=== PATIENT | male | born 1925 | race African-American/Black ===

== ENCOUNTER 2016-07-12 18:43 | Inpatient (IN) | payer MEDICARE ==
[~2016-07-12] VITALS: Ht 170.2 cm; Wt 59.4 kg
[~2016-07-12 18:43] MED LIST: DONE10TA7 PO; LOSA25TA4 PO; TAMS0.4C2 PO; TRAV5DRO EACHEYE; [UNRECOGNIZED DRUG - OTHER] EACHEYE
--- NOTE | 2016-07-12 19:07 | PHYS DOC ---
Past Medical History Past Medical History: Hypertension, Other Additional Past Medical Histor: cataract, BPH Past Surgical History: Other Additional Past Surgical Histo: cataract removal , prostates surgery Alcohol Use: None Drug Use: None Adult General Chief Complaint Chief Complaint: ALTERED MENTAL STATUS HPI HPI Patient is a 89 year old male brought in by children for evaluation of altered mental status diarrhea decreased activity and inability to ambulate. Son is very vague on the different aspects of his history. Patient is alert and oriented 1 and I asked that this is baseline for him and he said yes. I asked him how he is more confused and son was unable to provide much detail. He said the thing that is different is that patient defecated on himself but he is having diarrhea which is new. Son said that he is not getting up and around very well and I asked if he usually does and he said no. They say that he has lost a profound amount of weight but are unsure how much weight he has lost pages feel that he is much more thin than usual. Patient denies any area of pain and he seems upset that he is here as he denies any specific complaints. Patient lives at home by himself but son says he has a supervisor [employer] come and help him out every day. Review of Systems Review of Systems unable to obtain due to AMS Current Medications Current Medications Current Medications Medications (Trade) Dose Ordered Sig/Radha Start Time Stop Time Status Last Admin Dose Admin Morphine Sulfate 4 mg PRN Q2HR PRN 07/12/16 20:30 07/13/16 20:29 Ondansetron HCl (Zofran) 4 mg PRN Q8HRS PRN 07/12/16 20:30 07/13/16 20:29 Sodium Chloride (Iv Sodium Chloride 0.9% 1000ml Bag) 1,000 ml @ 1,000 mls/hr 1X ONCE 07/12/16 19:30 07/12/16 20:29 DC 07/12/16 19:45 1,000 MLS/HR Allergies Allergies Allergies Coded Allergies Type Severity Reaction Last Updated Verified No Known Drug Allergies 07/18/13 No Physical Exam Physical Exam Constitutional: Well developed, well nourished, no acute distress, non-toxic appearance. [] HENT: Normocephalic, atraumatic, bilateral external ears normal, oropharynx moist, no oral exudates, nose normal. [] Eyes: PERRLA, EOMI, conjunctiva normal, no discharge. [] Neck: Normal range of motion, no tenderness, supple, no stridor. [] Cardiovascular:Heart rate regular rhythm, no murmur [] Lungs & Thorax: Bilateral breath sounds clear to auscultation [] Abdomen: Bowel sounds normal, soft, no tenderness, no masses, no pulsatile masses. [] Skin: Warm, dry, no erythema, no rash. [] Back: No tenderness, no CVA tenderness. [] Extremities: No tenderness, no cyanosis, no clubbing, ROM intact, no edema. [] Neurologic: Alert and oriented X 3, normal motor function, normal sensory function, no focal deficits noted. [] Current Patient Data Vital Signs Vital Signs Date Time Temp Pulse Resp B/P Pulse Ox O2 Delivery O2 Flow Rate FiO2 07/12/16 19:11 98.8 73 14 139/62 99 Room Air 98.8 Lab Values Laboratory Tests Test 07/12/16 19:20 White Blood Count 4.2x10^3/uL (4.0-11.0) Red Blood Count 3.47x10^6/uL (4.30-5.70) L Hemoglobin 10.8g/dL (13.0-17.5) L Hematocrit 33.0% (39.0-53.0) L Mean Corpuscular Volume 95fL (79-100) Mean Corpuscular Hemoglobin 31pg (25-35) Mean Corpuscular Hemoglobin Concent 33g/dL (31-37) Red Cell Distribution Width 14.8% (11.5-14.5) H Platelet Count 133x10^3/uL (140-400) L Neutrophils (%) (Auto) 80% (31-73) H Lymphocytes (%) (Auto) 8% (24-48) L Monocytes (%) (Auto) 10% (0-9) H Eosinophils (%) (Auto) 1% (0-3) Basophils (%) (Auto) 1% (0-3) Neutrophils # (Auto) 3.4x10^3uL (1.8-7.7) Lymphocytes # (Auto) 0.3x10^3/uL (1.0-4.8) L Monocytes # (Auto) 0.4x10^3/uL (0.0-1.1) Eosinophils # (Auto) 0.0x10^3/uL (0.0-0.7) Basophils # (Auto) 0.0x10^3/uL (0.0-0.2) Sodium Level 136mmol/L (136-145) Potassium Level 3.4mmol/L (3.5-5.1) L Chloride Level 101mmol/L (98-107) Carbon Dioxide Level 25mmol/L (21-32) Anion Gap 10 (6-14) Blood Urea Nitrogen 20mg/dL (8-26) Creatinine 1.4mg/dL (0.7-1.3) H Estimated GFR (Cockcroft-Gault) 57.7 BUN/Creatinine Ratio 14 (6-20) Glucose Level 134mg/dL (70-99) H Calcium Level 8.6mg/dL (8.5-10.1) Total Bilirubin 0.9mg/dL (0.2-1.0) Aspartate Amino Transferase (AST) 21U/L (15-37) Alanine Aminotransferase (ALT) 17U/L (16-63) Alkaline Phosphatase 61U/L (46-116) Troponin I Quantitative < 0.017ng/mL (0.000-0.055) CS-Wlj-G-Type Natriuretic Peptide 482pg/mL (0-449) H Total Protein 7.4g/dL (6.4-8.2) Albumin 3.1g/dL (3.4-5.0) L Albumin/Globulin Ratio 0.7 (1.0-1.7) L Thyroid Stimulating Hormone (TSH) 1.040uIU/mL (0.358-3.74) Laboratory Tests 07/12/16 19:20 Laboratory Tests 07/12/16 19:20 EKG EKG Normal sinus rhythm at 73 bpm with normal axis no deviation no obvious ST elevation or depression with normal T waves. Radiology/Procedures Radiology/Procedures Normal mediastinum and normal heart size and no free air pneumothorax or opacity PROCEDURE CT head without intravenous contrast. HISTORY Altered mental status, confusion. TECHNIQUE Axial images are obtained of the head from the skull base through the vertex without IV contrast Exposure: One or more of the following individualized dose reduction techniques were utilized for this examination: 1. Automated exposure control. 2. Adjustment of the mA and/or kV according to patient size. 3. Use of iterative reconstruction technique. COMPARISON CT head December 29, 2013. FINDINGS The ventricles are appropriate in size, shape, and location for the patient's age.No obvious intracranial mass, mass-effect, midline shift, hemorrhage or obvious acute infarction is identified.Basilar cisterns are patent. 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 Bone windows demonstrate no acute calvarial abnormality.The visualized paranasal sinuses appear clear. IMPRESSION 1. No acute intracranial process. Please note that CT can be relatively insensitive to acute ischemic infarction for up to 24 hours after symptom onset. 2. 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 Electronically signed by: Warren Edmonds MD (Jul 12, 2016 19:45:54) DICTATED and SIGNED BY: WARREN EDMONDS MD DATE: 07/12/161944 Course & Med Decision Making Course & Med Decision Making Patient with nonspecific symptoms so he will get labs and imaging IV fluids and then be reassessed. Patient is altered and he is deathly not safe to go home with his current mental faculty. Patient will be admitted for further observation and treatment. Dragon Disclaimer Dragon Disclaimer This electronic medical record was generated, in whole or in part, using a voice recognition dictation system. Departure Departure Impression: Primary Impression: Encephalopathy acute Additional Impressions: Hypokalemia Diarrhea Disposition: ADMITTED INPATIENT Admitting Physician: Leonardo Hawk Referrals: GLADYS BURK MD (PCP) Problem Qualifiers MARCY GARNER DO Jul 12, 2016 19:07
[2016-07-12] MEDS ORDERED: IV NORMAL SALINE 1000ML BAG 1,000 ML IV ONE (19:30)
[2016-07-12 19:31] LABS: BASO % 1 % (0-3); EOS % 1 % (0-3); HEMOGLOBIN 10.8 g/dL (13.0-17.5); LYMPH # 0.3 x10^3/uL (1.0-4.8); LYMPH % 8 % (24-48); MEAN CORPUSCULAR HEMOGLOBIN 31 pg (25-35); MEAN CORPUSCULAR HGB CONC 33 g/dL (31-37); MEAN CORPUSCULAR VOLUME 95 fL (79-100); MONO % 10 % (0-9); NEUT % 80 % (31-73); PLATELET COUNT 133 x10^3/uL (140-400); RED BLOOD COUNT 3.47 x10^6/uL (4.30-5.70); RED CELL DISTRIBUTION WIDTH 14.8 % (11.5-14.5); WHITE BLOOD COUNT 4.2 x10^3/uL (4.0-11.0)
--- NOTE | 2016-07-12 19:47 | RAD ---
PROCEDURE CT head without intravenous contrast. HISTORY Altered mental status, confusion. TECHNIQUE Axial images are obtained of the head from the skull base through the vertex without IV contrast Exposure: One or more of the following individualized dose reduction techniques were utilized for this examination: 1. Automated exposure control. 2. Adjustment of the mA and/or kV according to patient size. 3. Use of iterative reconstruction technique. COMPARISON CT head December 29, 2013. FINDINGS The ventricles are appropriate in size, shape, and location for the patient's age.No obvious intracranial mass, mass-effect, midline shift, hemorrhage or obvious acute infarction is identified.Basilar cisterns are patent. 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 Bone windows demonstrate no acute calvarial abnormality.The visualized paranasal sinuses appear clear. IMPRESSION 1. No acute intracranial process. Please note that CT can be relatively insensitive to acute ischemic infarction for up to 24 hours after symptom onset. 2. 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 Electronically signed by: Warren Siddiqi MD (Jul 12, 2016 19:45:54)
[2016-07-12 19:49] LABS: CALCIUM 8.6 mg/dL (8.5-10.1); CREATININE 1.4 mg/dL (0.7-1.3); GFR 57.7; POTASSIUM 3.4 mmol/L (3.5-5.1)
[2016-07-12 19:55] LABS: ALBUMIN 3.1 g/dL (3.4-5.0); ALBUMIN/GLOBULIN RATIO 0.7 (1.0-1.7); TOTAL BILIRUBIN 0.9 mg/dL (0.2-1.0); TOTAL PROTEIN 7.4 g/dL (6.4-8.2)
[2016-07-12] MEDS ORDERED: ONDANSETRON PF 4 MG/2 ML VIAL. IV PRN (20:30)
[2016-07-12] MEDS ORDERED: MORPHINE SULFATE 4 MG/ML DISP.SYRIN. IV PRN (20:30)
[2016-07-12] MEDS: POTASSIUM CHLORIDE 30 MEQ in IV NORMAL SALINE 1000ML BAG 1,000 ML IV SCH (20:57)
[2016-07-12 21:45] VITALS: BP 125/58
--- NOTE | 2016-07-13 02:45 | ACF ---
Admission Forms Criteria MENTAL STATUS CHANGE Clinical Indications for Inpatient Care (Place 'X' for any and all applicable criteria): Ongoing inpatient care may be needed for 1 or more of the following(1)(2)(3)(5)( 6): [X ]I. Suspected serious etiology (eg, medical disorder, [employer] TEACHER event) of altered mental status [ ]II. Danger to self or others not manageable at lower level of care [ ]III. Grave disability (eg, inability to perform self care necessary at lower level of care) [ ]IV. Agitation or inappropriate behavior interfering with care for primary condition (eg, attempting to discontinue lines or drains prematurely, unable to cooperate with respiratory care) [ ]V. Delirium [A] [D][E] as described by 1 or more of the following(26): [ ]a) Delirium due to alcohol or sedative [F] withdrawal [ ]b) Delirium of uncertain etiology that has not responded to appropriate empiric treatment [ ]c) Delirium that prevents performance of a life-sustaining function (eg, feeding or hydrating oneself) [ ]. General contraindications and/or Inappropriate clinical situations for Observational Care in patients with Mental Status Change, when ANY ONE of the following is required: [ ]a) Prediction of prolongation of LOS based on ANY ONE of the following may be considered as a contraindication for observational care 2, 3, 4, 5, 6, 7, 8, 9, 10, 11 [ ]i) Age > 65 yrs. [ ]ii) Patient arriving by ambulance [ ]iii) Patient with high acuity [ ]iv) Patient requiring vital sign monitoring [ ]v) Patient on IV medication [ ]b) Systolic blood pressures greater than or equal to 180mmHg 3, 12 [ ]c) Patient with altered mental status including delirium and other alteration of consciousness, (3) [ ]d) Patient whose discharge disposition will be to a long term home or rehabilitation home should not be managed in Emergency Department Observation Unit. CMS rule requires 3 days hospital stay before such placement.3,13 [ ]e) Patient with failure to thrive due to broad array of etiologies 3,16,17 [ ]f) Inability to ambulate 3,14 Extended stay beyond goal length of stay for the primary condition may be needed until ALL of the following are present(3)(5): [ ]a) Underlying medical etiology of mental status change is absent, or has been established and adequately treated [ ]b) Danger to self or others is absent or manageable at lower level of care. [ ]c) Behavior crisis management, including physical or chemical restraints, is not required or available at lower level of car [ ]d) Substance or alcohol withdrawal is absent or manageable at lower level of care. [ ]e) Behavioral symptoms (eg, agitation, somnolence, inappropriate behavior) are absent, or are manageable at lower level of care. The original [facility] content created by [facility] has been revised. The portions of the content which have been revised are identified through the use of italic text or in bold, and [facility] has neither reviewed nor approved the modified material. All other unmodified content is copyright [facility]. Please see references footnoted in the original [facility] edition 2016 Admission Criteria Met?: Yes ALLI FORD July 13, 2016 02:45
[2016-07-13 03:00] VITALS: BP 109/68
[2016-07-13 04:21] LABS: BASO % 0 % (0-3); EOS % 1 % (0-3); HEMATOCRIT 31.2 % (39.0-53.0); HEMOGLOBIN 10.3 g/dL (13.0-17.5); LYMPH # 0.6 x10^3/uL (1.0-4.8); LYMPH % 16 % (24-48); MEAN CORPUSCULAR HEMOGLOBIN 32 pg (25-35); MEAN CORPUSCULAR HGB CONC 33 g/dL (31-37); MEAN CORPUSCULAR VOLUME 96 fL (79-100); MONO % 12 % (0-9); NEUT % 71 % (31-73); PLATELET COUNT 121 x10^3/uL (140-400); RED BLOOD COUNT 3.26 x10^6/uL (4.30-5.70); RED CELL DISTRIBUTION WIDTH 14.3 % (11.5-14.5)
[2016-07-13 05:38] LABS: CALCIUM 8.3 mg/dL (8.5-10.1); CREATININE 1.2 mg/dL (0.7-1.3); GFR 69.1; POTASSIUM 3.2 mmol/L (3.5-5.1)
--- NOTE | 2016-07-13 06:29 | EKG ---
[facility] [address] [place] [address] Test Date: 2016-07-12 Test Time: 19:15:56 Pat Name: VIRAL BROCK Department: Room: [facility] Gender: M Cash Applications Clerk: : [id number] Requested By: MARCY GARNER Order Number: [id number] Reading MD: Ami Marie Measurements Intervals [place] Rate: 73 P: 52 DC: 166 QRS: 32 QRSD: 80 T: 71 QT: 402 QTc: 447 Interpretive Statements SINUS RHYTHM LOW LIMB LEAD VOLTAGE T ABNORMALITY IN HIGH LATERAL LEADS ABNORMAL ECG Electronically Signed On 07-13-2016 21:04:07 CDT by Ami Marie
[2016-07-13 07:00] VITALS: BP 125/60
--- NOTE | 2016-07-13 07:57 | RAD ---
Indication change in mental status. Suspect CVA. Cough study. A single view of the chest was obtained. Comparison is made to an examination 12/29/2013. The heart and pulmonary vessels are normal. The lungs are clear. A significant change compared to the previous exam is not seen. IMPRESSION: No acute or focal process. No significant change
[2016-07-13] MEDS: POTASSIUM CHLORIDE 30 MEQ in IV NORMAL SALINE 1000ML BAG 1,000 ML IV SCH (10:11)
[2016-07-13 11:06] VITALS: BP 121/66
--- NOTE | 2016-07-13 12:11 | PDOC1 ---
History and Physical Current Problem List Problem List Problems Medical Problems: (1) Diarrhea Status: Acute (2) Encephalopathy acute Status: Acute (3) Hypokalemia Status: Acute Current Medications Current Medications Current Medications Medications (Trade) Dose Ordered Sig/Radha Start Time Stop Time Status Last Admin Dose Admin Morphine Sulfate 4 mg 4 mg PRN Q2HR PRN 07/12/16 20:30 07/13/16 20:29 Ondansetron HCl (Zofran) 4 mg PRN Q8HRS PRN 07/12/16 20:30 07/13/16 20:29 Potassium Chloride/Sodium Chloride (Iv Sodium Chloride 0.9% 1000ml Bag) 1,015 ml @ 75 mls/hr [id number] 07/12/16 20:45 07/13/16 10:11 75 MLS/HR Sodium Chloride (Iv Sodium Chloride 0.9% 1000ml Bag) 1,000 ml @ 1,000 mls/hr 1X ONCE 07/12/16 19:30 07/12/16 20:29 DC 07/12/16 19:45 1,000 MLS/HR Allergies Allergies Allergies Coded Allergies Type Severity Reaction Last Updated Verified No Known Drug Allergies 07/18/13 No Physical Exam Physical Exam GEN.: No apparent distress. Alert NOT ORIENTED HEENT: Head is normocephalic, atraumatic NECK: Supple. LUNGS: Clear to auscultation. HEART: RRR, S1, S2 present. Peripheral pulses intact ABDOMEN: Soft, nontender. Positive bowel sounds. EXTREMITIES: Without any cyanosis. NEUROLOGIC: Normal speech, normal tone PSYCHIATRIC: SKIN: No ulcerations Vitals Vitals Vital Signs Date Time Temp Pulse Resp B/P Pulse Ox O2 Delivery O2 Flow Rate FiO2 07/13/16 11:06 98.1 71 18 121/66 96 Room Air 98.1 Labs Labs Laboratory Tests Test 07/12/16 19:20 07/13/16 03:50 White Blood Count 4.2x10^3/uL (4.0-11.0) 4.0x10^3/uL (4.0-11.0) Red Blood Count 3.47x10^6/uL (4.30-5.70) 3.26x10^6/uL (4.30-5.70) Hemoglobin 10.8g/dL (13.0-17.5) 10.3g/dL (13.0-17.5) Hematocrit 33.0% (39.0-53.0) 31.2% (39.0-53.0) Mean Corpuscular Volume 95fL (79-100) 96fL (79-100) Mean Corpuscular Hemoglobin 31pg (25-35) 32pg (25-35) Mean Corpuscular Hemoglobin Concent 33g/dL (31-37) 33g/dL (31-37) Red Cell Distribution Width 14.8% (11.5-14.5) 14.3% (11.5-14.5) Platelet Count 133x10^3/uL (140-400) 121x10^3/uL (140-400) Neutrophils (%) (Auto) 80% (31-73) 71% (31-73) Lymphocytes (%) (Auto) 8% (24-48) 16% (24-48) Monocytes (%) (Auto) 10% (0-9) 12% (0-9) Eosinophils (%) (Auto) 1% (0-3) 1% (0-3) Basophils (%) (Auto) 1% (0-3) 0% (0-3) Neutrophils # (Auto) 3.4x10^3uL (1.8-7.7) 2.8x10^3uL (1.8-7.7) Lymphocytes # (Auto) 0.3x10^3/uL (1.0-4.8) 0.6x10^3/uL (1.0-4.8) Monocytes # (Auto) 0.4x10^3/uL (0.0-1.1) 0.5x10^3/uL (0.0-1.1) Eosinophils # (Auto) 0.0x10^3/uL (0.0-0.7) 0.0x10^3/uL (0.0-0.7) Basophils # (Auto) 0.0x10^3/uL (0.0-0.2) 0.0x10^3/uL (0.0-0.2) Sodium Level 136mmol/L (136-145) 137mmol/L (136-145) Potassium Level 3.4mmol/L (3.5-5.1) 3.2mmol/L (3.5-5.1) Chloride Level 101mmol/L (98-107) 105mmol/L (98-107) Carbon Dioxide Level 25mmol/L (21-32) 24mmol/L (21-32) Anion Gap 10 (6-14) 8 (6-14) Blood Urea Nitrogen 20mg/dL (8-26) 17mg/dL (8-26) Creatinine 1.4mg/dL (0.7-1.3) 1.2mg/dL (0.7-1.3) Estimated GFR (Cockcroft-Gault) 57.7 69.1 BUN/Creatinine Ratio 14 (6-20) Glucose Level 134mg/dL (70-99) 108mg/dL (70-99) Calcium Level 8.6mg/dL (8.5-10.1) 8.3mg/dL (8.5-10.1) Total Bilirubin 0.9mg/dL (0.2-1.0) Aspartate Amino Transf (AST/SGOT) 21U/L (15-37) Alanine Aminotransferase (ALT/SGPT) 17U/L (16-63) Alkaline Phosphatase 61U/L (46-116) Troponin I Quantitative < 0.017ng/mL (0.000-0.055) HA-Yzp-N-Type Natriuretic Peptide 482pg/mL (0-449) Total Protein 7.4g/dL (6.4-8.2) Albumin 3.1g/dL (3.4-5.0) Albumin/Globulin Ratio 0.7 (1.0-1.7) Thyroid Stimulating Hormone (TSH) 1.040uIU/mL (0.358-3.74) Laboratory Tests Test 07/12/16 19:20 07/13/16 03:50 White Blood Count 4.2x10^3/uL (4.0-11.0) 4.0x10^3/uL (4.0-11.0) Red Blood Count 3.47x10^6/uL (4.30-5.70) 3.26x10^6/uL (4.30-5.70) Hemoglobin 10.8g/dL (13.0-17.5) 10.3g/dL (13.0-17.5) Hematocrit 33.0% (39.0-53.0) 31.2% (39.0-53.0) Mean Corpuscular Volume 95fL (79-100) 96fL (79-100) Mean Corpuscular Hemoglobin 31pg (25-35) 32pg (25-35) Mean Corpuscular Hemoglobin Concent 33g/dL (31-37) 33g/dL (31-37) Red Cell Distribution Width 14.8% (11.5-14.5) 14.3% (11.5-14.5) Platelet Count 133x10^3/uL (140-400) 121x10^3/uL (140-400) Neutrophils (%) (Auto) 80% (31-73) 71% (31-73) Lymphocytes (%) (Auto) 8% (24-48) 16% (24-48) Monocytes (%) (Auto) 10% (0-9) 12% (0-9) Eosinophils (%) (Auto) 1% (0-3) 1% (0-3) Basophils (%) (Auto) 1% (0-3) 0% (0-3) Neutrophils # (Auto) 3.4x10^3uL (1.8-7.7) 2.8x10^3uL (1.8-7.7) Lymphocytes # (Auto) 0.3x10^3/uL (1.0-4.8) 0.6x10^3/uL (1.0-4.8) Monocytes # (Auto) 0.4x10^3/uL (0.0-1.1) 0.5x10^3/uL (0.0-1.1) Eosinophils # (Auto) 0.0x10^3/uL (0.0-0.7) 0.0x10^3/uL (0.0-0.7) Basophils # (Auto) 0.0x10^3/uL (0.0-0.2) 0.0x10^3/uL (0.0-0.2) Sodium Level 136mmol/L (136-145) 137mmol/L (136-145) Potassium Level 3.4mmol/L (3.5-5.1) 3.2mmol/L (3.5-5.1) Chloride Level 101mmol/L (98-107) 105mmol/L (98-107) Carbon Dioxide Level 25mmol/L (21-32) 24mmol/L (21-32) Anion Gap 10 (6-14) 8 (6-14) Blood Urea Nitrogen 20mg/dL (8-26) 17mg/dL (8-26) Creatinine 1.4mg/dL (0.7-1.3) 1.2mg/dL (0.7-1.3) Estimated GFR (Cockcroft-Gault) 57.7 69.1 BUN/Creatinine Ratio 14 (6-20) Glucose Level 134mg/dL (70-99) 108mg/dL (70-99) Calcium Level 8.6mg/dL (8.5-10.1) 8.3mg/dL (8.5-10.1) Total Bilirubin 0.9mg/dL (0.2-1.0) Aspartate Amino Transf (AST/SGOT) 21U/L (15-37) Alanine Aminotransferase (ALT/SGPT) 17U/L (16-63) Alkaline Phosphatase 61U/L (46-116) Troponin I Quantitative < 0.017ng/mL (0.000-0.055) CR-Yib-C-Type Natriuretic Peptide 482pg/mL (0-449) Total Protein 7.4g/dL (6.4-8.2) Albumin 3.1g/dL (3.4-5.0) Albumin/Globulin Ratio 0.7 (1.0-1.7) Thyroid Stimulating Hormone (TSH) 1.040uIU/mL (0.358-3.74) VTE Prophylaxis Ordered VTE Prophylaxis Devices: Yes VTE Pharmacological Prophylaxi: Yes MICHAEL YOUSSEF MD July 13, 2016 12:11
[2016-07-13 15:07] VITALS: BP 124/66
[2016-07-13] MEDS ORDERED: ONDANSETRON PF 4 MG/2 ML VIAL. IV PRN (15:15)
[2016-07-13] MEDS ORDERED: hydrALAZINE 20 MG/ML VIAL. IVP PRN (15:15)
[2016-07-13] MEDS ORDERED: ACETAMINOPHEN 325 MG TABLET. PO PRN (15:15)
[2016-07-13] MEDS ORDERED: POTASSIUM CHLORIDE 20 MEQ TABLET.ER. PO ONE (15:15)
[2016-07-13] MEDS ORDERED: ALBUTEROL SULFATE 2.5 MG/3 ML NEBU. NEB PRN (15:15)
[2016-07-13] MEDS ORDERED: HYDROcodone/APAP 5/325MG 1 TAB TABLET PO PRN (15:15)
[2016-07-13] MEDS: TAMSULOSIN 0.4 MG CAP.ER.24H. PO SCH (15:54)
[2016-07-13] MEDS: DORZOLAMIDE 2% OPHTH SOLUTION 10ML BOTTLE. OU SCH (15:54)
[2016-07-13] MEDS: LOSARTAN POTASSIUM 25 MG TABLET. PO SCH (15:55)
[2016-07-13] MEDS: DONEPEZIL HCL 10 MG TABLET. PO SCH (15:55)
[2016-07-13] MEDS: CIPROFLOXACIN 200MG PREMIX 100 ML IV SCH ×2 (17:06→23:06)
[2016-07-13 19:00] VITALS: BP 128/70
--- NOTE | 2016-07-13 19:33 | HP ---
ADMIT DATE: 07/13/2016 CHIEF COMPLAINT: Altered mental status. HISTORY OF PRESENT ILLNESS: An 89-year-old -[place] male patient with prior history of hypertension who reportedly lives by himself at home and most of the history obtained from the ER notes, as the patient is not able to provide any history. As per the patient's son, the patient is having some diarrhea for unknown period of time and lost some weight. He could not able to ambulate and his activities decreased and he says his mental status has changed. However, he could not able to provide full details of his previous baseline status. Upon my examination this morning, the patient is alert, sitting in the chair. He is nodding his head to all the questions, however, he is not able to provide me any details. He is currently on IV hydration and electrolyte replaced. PAST MEDICAL HISTORY: Hypertension, BPH, cataract and prostate surgery. PERSONAL HISTORY: He lives alone and getting some help. Unknown history of smoking or alcohol. FAMILY HISTORY: Unknown due to his dementia ALLERGIES: NKDA. REVIEW OF SYSTEMS: Not able to obtain due to his seniority and mental status issues. PHYSICAL EXAMINATION: Please see my electronic H and P. LABORATORY FINDINGS: WBC is 4.2, hemoglobin is 10.8, MCV is 95, platelets 133. Chemistries: Sodium is 136, potassium 3.4, chloride is 101, BUN is 10, creatinine is 1.4 and BUN and creatinine ratio is 14. First set of troponin is less than 0.017. IMAGING STUDIES: CT of the chest, no acute process seen. Chest x-ray, no acute process seen. ASSESSMENT AND PLAN: 1. Altered mental status. Unknown baseline state. 2. Dehydration. 3. Hypokalemia. 4. Acute kidney injury. 5. Vasomotor nephropathy due to dehydration. 6. Hypertension. PLAN: 1. The patient has been started on IV fluids with normal saline and potassium replacement and he has some temperature spike around 100. I will get blood cultures and urinalysis. 2. Also started with ciprofloxacin and Levaquin for now and change the antibiotics according to his clinical course. 3. Continue supportive care. Acute kidney injury has been improving with IV hydration. 4. welfare eligibility worker has been consulted. 5. Physical therapy and occupation therapy. 6. Fall precautions. 7. Prognosis is guarded. No immediate family available at the time of examination. We will try to contact. MICHAEL YOUSSEF MD DR: STEPHENIE/benny JOB#: [id number] / [id number] MARYAN
[2016-07-13] MEDS: LATANOPROST 0.005% OPHTH SOLUTION 2.5ML BOTTLE. OU SCH (20:56)
[2016-07-13 23:00] VITALS: BP 131/61
[2016-07-14] MEDS: POTASSIUM CHLORIDE 30 MEQ in IV NORMAL SALINE 1000ML BAG 1,000 ML IV SCH ×2 (02:35→18:15)
[2016-07-14 07:00] VITALS: BP 125/67
[2016-07-14 07:55] LABS: BASO % 0 % (0-3); EOS % 6 % (0-3); HEMATOCRIT 31.1 % (39.0-53.0); HEMOGLOBIN 10.2 g/dL (13.0-17.5); LYMPH # 0.7 x10^3/uL (1.0-4.8); LYMPH % 21 % (24-48); MEAN CORPUSCULAR HEMOGLOBIN 31 pg (25-35); MEAN CORPUSCULAR HGB CONC 33 g/dL (31-37); MEAN CORPUSCULAR VOLUME 96 fL (79-100); MONO % 14 % (0-9); NEUT % 60 % (31-73); PLATELET COUNT 115 x10^3/uL (140-400); RED BLOOD COUNT 3.24 x10^6/uL (4.30-5.70); RED CELL DISTRIBUTION WIDTH 14.5 % (11.5-14.5); WHITE BLOOD COUNT 3.6 x10^3/uL (4.0-11.0)
[2016-07-14 08:01] LABS: GFR 85.3; POTASSIUM 3.6 mmol/L (3.5-5.1)
[2016-07-14] MEDS: TAMSULOSIN 0.4 MG CAP.ER.24H. PO SCH (08:34)
[2016-07-14] MEDS: DONEPEZIL HCL 10 MG TABLET. PO SCH (08:35)
[2016-07-14] MEDS: LOSARTAN POTASSIUM 25 MG TABLET. PO SCH (08:35)
[2016-07-14] MEDS: DORZOLAMIDE 2% OPHTH SOLUTION 10ML BOTTLE. OU SCH (08:35)
[2016-07-14] MEDS: CIPROFLOXACIN 200MG PREMIX 100 ML IV SCH ×2 (08:36→20:27)
--- NOTE | 2016-07-14 10:51 | PDOC ---
PROGRESS NOTES Chief Complaint Chief Complaint CC: diarrhea A/P 1. AMS, spoke with family today, he is at baseline, 2. Dehydration due to diarrhea. 3. Hypokalemia. 4. Acute kidney injury. 5. Vasomotor nephropathy due to dehydration. 6. Hypertension. stable. Plan IV hydration as per family he is at baseline continue to have diarrhea hypokalemia resolved. C diff pending History of Present Illness History of Present Illness diarrhea. no fevers Vitals Vitals Vital Signs Date Time Temp Pulse Resp B/P Pulse Ox O2 Delivery O2 Flow Rate FiO2 07/14/16 08:35 70 125/67 07/14/16 07:55 99 Room Air 07/14/16 07:00 98.8 18 98.8 Physical Exam General: Alert Heart: Regular rate, Normal S1 Lungs: Clear Abdomen: Normal bowel sounds Extremities: No clubbing Labs LABS Laboratory Tests Test 07/14/16 07:00 07/14/16 07:10 White Blood Count 3.6x10^3/uL (4.0-11.0) Red Blood Count 3.24x10^6/uL (4.30-5.70) Hemoglobin 10.2g/dL (13.0-17.5) Hematocrit 31.1% (39.0-53.0) Mean Corpuscular Volume 96fL (79-100) Mean Corpuscular Hemoglobin 31pg (25-35) Mean Corpuscular Hemoglobin Concent 33g/dL (31-37) Red Cell Distribution Width 14.5% (11.5-14.5) Platelet Count 115x10^3/uL (140-400) Neutrophils (%) (Auto) 60% (31-73) Lymphocytes (%) (Auto) 21% (24-48) Monocytes (%) (Auto) 14% (0-9) Eosinophils (%) (Auto) 6% (0-3) Basophils (%) (Auto) 0% (0-3) Neutrophils # (Auto) 2.2x10^3uL (1.8-7.7) Lymphocytes # (Auto) 0.7x10^3/uL (1.0-4.8) Monocytes # (Auto) 0.5x10^3/uL (0.0-1.1) Eosinophils # (Auto) 0.2x10^3/uL (0.0-0.7) Basophils # (Auto) 0.0x10^3/uL (0.0-0.2) Sodium Level 134mmol/L (136-145) Potassium Level 3.6mmol/L (3.5-5.1) Chloride Level 105mmol/L (98-107) Carbon Dioxide Level 22mmol/L (21-32) Anion Gap 7 (6-14) Blood Urea Nitrogen 14mg/dL (8-26) Creatinine 1.0mg/dL (0.7-1.3) Estimated GFR (Cockcroft-Gault) 85.3 Glucose Level 92mg/dL (70-99) Calcium Level 8.0mg/dL (8.5-10.1) Assessment and Plan Assessmemt and Plan Problems Medical Problems: (1) Diarrhea Status: Acute (2) Encephalopathy acute Status: Acute (3) Hypokalemia Status: Acute Problems: Comment Review of Relevant I have reviewed the following items edith (where applicable) has been applied. Labs Laboratory Tests Test 07/12/16 19:20 07/13/16 03:50 07/14/16 07:00 07/14/16 07:10 White Blood Count 4.2x10^3/uL (4.0-11.0) 4.0x10^3/uL (4.0-11.0) 3.6x10^3/uL (4.0-11.0) Red Blood Count 3.47x10^6/uL (4.30-5.70) 3.26x10^6/uL (4.30-5.70) 3.24x10^6/uL (4.30-5.70) Hemoglobin 10.8g/dL (13.0-17.5) 10.3g/dL (13.0-17.5) 10.2g/dL (13.0-17.5) Hematocrit 33.0% (39.0-53.0) 31.2% (39.0-53.0) 31.1% (39.0-53.0) Mean Corpuscular Volume 95fL (79-100) 96fL (79-100) 96fL (79-100) Mean Corpuscular Hemoglobin 31pg (25-35) 32pg (25-35) 31pg (25-35) Mean Corpuscular Hemoglobin Concent 33g/dL (31-37) 33g/dL (31-37) 33g/dL (31-37) Red Cell Distribution Width 14.8% (11.5-14.5) 14.3% (11.5-14.5) 14.5% (11.5-14.5) Platelet Count 133x10^3/uL (140-400) 121x10^3/uL (140-400) 115x10^3/uL (140-400) Neutrophils (%) (Auto) 80% (31-73) 71% (31-73) 60% (31-73) Lymphocytes (%) (Auto) 8% (24-48) 16% (24-48) 21% (24-48) Monocytes (%) (Auto) 10% (0-9) 12% (0-9) 14% (0-9) Eosinophils (%) (Auto) 1% (0-3) 1% (0-3) 6% (0-3) Basophils (%) (Auto) 1% (0-3) 0% (0-3) 0% (0-3) Neutrophils # (Auto) 3.4x10^3uL (1.8-7.7) 2.8x10^3uL (1.8-7.7) 2.2x10^3uL (1.8-7.7) Lymphocytes # (Auto) 0.3x10^3/uL (1.0-4.8) 0.6x10^3/uL (1.0-4.8) 0.7x10^3/uL (1.0-4.8) Monocytes # (Auto) 0.4x10^3/uL (0.0-1.1) 0.5x10^3/uL (0.0-1.1) 0.5x10^3/uL (0.0-1.1) Eosinophils # (Auto) 0.0x10^3/uL (0.0-0.7) 0.0x10^3/uL (0.0-0.7) 0.2x10^3/uL (0.0-0.7) Basophils # (Auto) 0.0x10^3/uL (0.0-0.2) 0.0x10^3/uL (0.0-0.2) 0.0x10^3/uL (0.0-0.2) Sodium Level 136mmol/L (136-145) 137mmol/L (136-145) 134mmol/L (136-145) Potassium Level 3.4mmol/L (3.5-5.1) 3.2mmol/L (3.5-5.1) 3.6mmol/L (3.5-5.1) Chloride Level 101mmol/L (98-107) 105mmol/L (98-107) 105mmol/L (98-107) Carbon Dioxide Level 25mmol/L (21-32) 24mmol/L (21-32) 22mmol/L (21-32) Anion Gap 10 (6-14) 8 (6-14) 7 (6-14) Blood Urea Nitrogen 20mg/dL (8-26) 17mg/dL (8-26) 14mg/dL (8-26) Creatinine 1.4mg/dL (0.7-1.3) 1.2mg/dL (0.7-1.3) 1.0mg/dL (0.7-1.3) Estimated GFR (Cockcroft-Gault) 57.7 69.1 85.3 BUN/Creatinine Ratio 14 (6-20) Glucose Level 134mg/dL (70-99) 108mg/dL (70-99) 92mg/dL (70-99) Calcium Level 8.6mg/dL (8.5-10.1) 8.3mg/dL (8.5-10.1) 8.0mg/dL (8.5-10.1) Total Bilirubin 0.9mg/dL (0.2-1.0) Aspartate Amino Transf (AST/SGOT) 21U/L (15-37) Alanine Aminotransferase (ALT/SGPT) 17U/L (16-63) Alkaline Phosphatase 61U/L (46-116) Troponin I Quantitative < 0.017ng/mL (0.000-0.055) GS-Npc-H-Type Natriuretic Peptide 482pg/mL (0-449) Total Protein 7.4g/dL (6.4-8.2) Albumin 3.1g/dL (3.4-5.0) Albumin/Globulin Ratio 0.7 (1.0-1.7) Thyroid Stimulating Hormone (TSH) 1.040uIU/mL (0.358-3.74) Laboratory Tests Test 07/14/16 07:00 07/14/16 07:10 White Blood Count 3.6x10^3/uL (4.0-11.0) Red Blood Count 3.24x10^6/uL (4.30-5.70) Hemoglobin 10.2g/dL (13.0-17.5) Hematocrit 31.1% (39.0-53.0) Mean Corpuscular Volume 96fL (79-100) Mean Corpuscular Hemoglobin 31pg (25-35) Mean Corpuscular Hemoglobin Concent 33g/dL (31-37) Red Cell Distribution Width 14.5% (11.5-14.5) Platelet Count 115x10^3/uL (140-400) Neutrophils (%) (Auto) 60% (31-73) Lymphocytes (%) (Auto) 21% (24-48) Monocytes (%) (Auto) 14% (0-9) Eosinophils (%) (Auto) 6% (0-3) Basophils (%) (Auto) 0% (0-3) Neutrophils # (Auto) 2.2x10^3uL (1.8-7.7) Lymphocytes # (Auto) 0.7x10^3/uL (1.0-4.8) Monocytes # (Auto) 0.5x10^3/uL (0.0-1.1) Eosinophils # (Auto) 0.2x10^3/uL (0.0-0.7) Basophils # (Auto) 0.0x10^3/uL (0.0-0.2) Sodium Level 134mmol/L (136-145) Potassium Level 3.6mmol/L (3.5-5.1) Chloride Level 105mmol/L (98-107) Carbon Dioxide Level 22mmol/L (21-32) Anion Gap 7 (6-14) Blood Urea Nitrogen 14mg/dL (8-26) Creatinine 1.0mg/dL (0.7-1.3) Estimated GFR (Cockcroft-Gault) 85.3 Glucose Level 92mg/dL (70-99) Calcium Level 8.0mg/dL (8.5-10.1) Medications Current Medications Sodium Chloride (Iv Sodium Chloride 0.9% 1000ml Bag) 1,000 ml @ 1,000 mls/hr 1X ONCE IV Last administered on 07/12/16 19:45; Start 07/12/16 at 19:30; Stop 07/12/16 at 20:29; Status DC Ondansetron HCl (Zofran) 4 mg PRN Q8HRS PRN IV NAUSEA/VOMITING; Start 07/12/16 at 20:30; Stop 07/13/16 at 20:29; Status DC Morphine Sulfate 4 mg 4 mg PRN Q2HR PRN IV PAIN; Start 07/12/16 at 20:30; Stop 07/13/16 at 20:29; Status DC Potassium Chloride/Sodium Chloride (Iv Sodium Chloride 0.9% 1000ml Bag) 1,015 ml @ 75 mls/hr [id number] IV Last administered on 07/14/16 02:35; Start 07/12/16 at 20:45 Donepezil HCl (Aricept) 10 mg DAILY PO Last administered on 07/14/16 08:35; Start 07/13/16 at 16:00 Losartan Potassium (Cozaar) 12.5 mg DAILY PO Last administered on 07/14/16 08: 35; Start 07/13/16 at 16:00 Tamsulosin HCl (Flomax) 0.4 mg DAILY PO Last administered on 07/14/16 08:34; Start 07/13/16 at 16:00 Latanoprost (Xalatan) 1 drop QHS OU Last administered on 07/13/16 20:56; Start 07/13/16 at 21:00 Dorzolamide HCl (Trusopt) 2 drop DAILY OU Last administered on 07/14/16 08:35; Start 07/13/16 at 16:00 Potassium Chloride (Klor-Con) 40 meq 1X ONCE PO ; Start 07/13/16 at 15:15; Stop 07/13/16 at 15:15; Status DC Acetaminophen (Tylenol) 325 mg PRN Q6HRS PRN PO MILD PAIN / TEMP; Start at 15:15 Acetaminophen/ Hydrocodone Bitart (Lortab 5/325) 1 tab PRN Q6HRS PRN PO MODERATE TO SEVERE PAIN; Start 07/13/16 at 15:15 Hydralazine HCl (Apresoline) 10 mg PRN Q4HRS PRN IVP ELEVATED BP, SEE COMMENTS ; Start 07/13/16 at 15:15 Ondansetron HCl (Zofran) 4 mg PRN Q8HRS PRN IV NAUSEA/VOMITING; Start 07/13/16 at 15:15 Albuterol Sulfate 2.5 mg 2.5 mg PRN Q4HRS PRN NEB SHORTNESS OF BREATH; Start at 15:15 Ciprofloxacin Lactate 100 ml @ 100 mls/hr Q12HR IV Last administered on 08:36; Start 07/13/16 at 15:30 Metronidazole (FLAGYL 500Mmg PREMIX) 100 ml @ 100 mls/hr Q8HRS IV Last administered on 07/14/16 05:31; Start 07/13/16 at 15:30 Active Scripts Active Reported [dozolamide ] 2 Drop EACHEYE DAILY Travatan Z (Travoprost) 5 Ml Drops 1 Drop EACHEYE QHS Tamsulosin Hcl 0.4 Mg Cap.er.24h 1 Cap PO DAILY Donepezil Hcl 10 Mg Tablet 1 Tab PO DAILY Losartan Potassium 25 Mg Tablet 12.5 Mg PO DAILY Vitals/I & O Vital Sign - Last 24 Hours 07/13/16 07/13/16 07/13/16 07/13/16 11:06 15:07 15:55 19:00 Temp 98.1 98.2 99.5 98.1 98.2 99.5 Pulse 71 69 69 67 Resp 18 18 18 B/P 121/66 124/66 124/66 128/70 Pulse Ox 96 96 99 O2 Delivery Room Air Room Air 07/13/16 07/14/16 07/14/16 07/14/16 23:00 03:00 07:00 07:55 Temp 99.0 98.9 98.8 99.0 98.9 98.8 Pulse 94 70 Resp 18 18 B/P 131/61 125/67 Pulse Ox 98 98 99 O2 Delivery Room Air Room Air 07/14/16 08:35 Pulse 70 B/P 125/67 Intake and Output 07/13/16 07/13/16 07/14/16 15:00 23:00 07:00 Intake Total 1000 ml 150 ml Output Total 2 ml 1 ml Balance 998 ml -1 ml 150 ml MICHAEL YOUSSEF MD July 14, 2016 10:51
[2016-07-14 10:55] VITALS: BP 123/72
[2016-07-14 15:03] VITALS: BP 121/65
[2016-07-14 19:00] VITALS: BP 155/74
[2016-07-14] MEDS: LATANOPROST 0.005% OPHTH SOLUTION 2.5ML BOTTLE. OU SCH (20:40)
[2016-07-14 23:20] VITALS: BP 128/60
[2016-07-15] MEDS: CIPROFLOXACIN HCL 250 MG TABLET. PO SCH ×2 (02:30→21:00)
[2016-07-15] MEDS: metroNIDAZOLE 500 MG TABLET PO SCH ×3 (02:30→22:00)
[2016-07-15 05:05] LABS: BARBITURATES NEG (NEG); BENZODIAZEPINES NEG (NEG); CANNABINOIDS NEG (NEG); COCAINE NEG (NEG); METHADONE NEG (NEG); OPIATES POS (NEG); PHENCYCLIDINE NEG (NEG)
[2016-07-15 07:00] VITALS: BP 140/83
[2016-07-15 07:17] LABS: BASO % 1 % (0-3); EOS % 9 % (0-3); HEMATOCRIT 28.4 % (39.0-53.0); HEMOGLOBIN 9.3 g/dL (13.0-17.5); LYMPH % 27 % (24-48); MEAN CORPUSCULAR HEMOGLOBIN 31 pg (25-35); MEAN CORPUSCULAR HGB CONC 33 g/dL (31-37); MEAN CORPUSCULAR VOLUME 96 fL (79-100); MONO % 13 % (0-9); NEUT % 51 % (31-73); PLATELET COUNT 114 x10^3/uL (140-400); RED BLOOD COUNT 2.98 x10^6/uL (4.30-5.70); RED CELL DISTRIBUTION WIDTH 14.3 % (11.5-14.5); WHITE BLOOD COUNT 3.8 x10^3/uL (4.0-11.0)
[2016-07-15 07:26] LABS: CALCIUM 7.9 mg/dL (8.5-10.1); CREATININE 1.1 mg/dL (0.7-1.3); GFR 76.4; POTASSIUM 3.4 mmol/L (3.5-5.1)
[2016-07-15] MEDS: DORZOLAMIDE 2% OPHTH SOLUTION 10ML BOTTLE. OU SCH (08:16)
[2016-07-15] MEDS: DONEPEZIL HCL 10 MG TABLET. PO SCH (08:16)
[2016-07-15] MEDS: TAMSULOSIN 0.4 MG CAP.ER.24H. PO SCH (08:16)
[2016-07-15] MEDS: CIPROFLOXACIN 200MG PREMIX 100 ML IV SCH (08:16)
[2016-07-15] MEDS: POTASSIUM CHLORIDE 30 MEQ in IV NORMAL SALINE 1000ML BAG 1,000 ML IV SCH ×2 (08:16→17:58)
[2016-07-15] MEDS: LOSARTAN POTASSIUM 25 MG TABLET. PO SCH (08:17)
[2016-07-15] MEDS ORDERED: ONDANSETRON PF 4 MG/2 ML VIAL. IV PRN (08:44)
[2016-07-15 09:30] LABS: BILIRUBIN,URINE NEGATIVE (NEG); GLUCOSE,URINE NEGATIVE (NEG); NITRITE,URINE NEGATIVE (NEG); PH,URINE 5.5; PROTEIN,URINE NEGATIVE (NEG-TRACE); UROBILINOGEN,URINE 0.2 mg/dL (0.2 mg/dL)
[2016-07-15] MEDS ORDERED: POTASSIUM CHLORIDE 20 MEQ TABLET.ER. PO ONE (09:30)
[2016-07-15 10:33] LABS: BACTERIA,URINE 0 /HPF (0-FEW); SQUAMOUS EPITHELIAL CELL,UR FEW /LPF
[2016-07-15 11:00] VITALS: BP 132/71
--- NOTE | 2016-07-15 13:36 | PDOC ---
PROGRESS NOTES Chief Complaint Chief Complaint CC: diarrhea A/P 1. FTT sx, likely dementia 2. Dehydration due to diarrhea. resolved 3. Hypokalemia.replaced 4. Acute kidney injury. resolved 5. Vasomotor nephropathy due to dehydration. 6. Hypertension. stable. 7. Urinary incontinence History of Present Illness History of Present Illness no more diarrhea SOn needs to chop food NO SOA, CP Mentation back to baseline After interviewing son - -likely undiagnosed dementia NO UA - pt incontinent CXR and CT head neg PLAN: SW [facility] screen NURSE SPECIALIST eval dc to [facility] hopefully serina Vitals Vitals Vital Signs Date Time Temp Pulse Resp B/P Pulse Ox O2 Delivery O2 Flow Rate FiO2 07/15/16 11:00 97.8 98 20 132/71 97 Room Air 97.8 Physical Exam General: Alert Heart: Regular rate, Normal S1 Lungs: Clear Abdomen: Normal bowel sounds Extremities: No clubbing Labs LABS Laboratory Tests Test 07/15/16 04:12 07/15/16 06:35 Urine Collection Type Unknown Urine Color Yellow Urine Clarity Clear Urine pH 5.5 Urine Specific [place] 1.020 Urine Protein Negativemg/dL (NEG-TRACE) Urine Glucose (UA) Negativemg/dL (NEG) Urine Ketones (Stick) Negativemg/dL (NEG) Urine Blood Trace (NEG) Urine Nitrite Negative (NEG) Urine Bilirubin Negative (NEG) Urine Urobilinogen Dipstick 0.2mg/dL (0.2 mg/dL) Urine Leukocyte Esterase Small (NEG) Urine RBC 3-5/HPF (0-2) Urine WBC 1-4/HPF (0-4) Urine Squamous Epithelial Cells Few/LPF Urine Bacteria 0/HPF (0-FEW) Urine Mucus Slight/LPF Urine Opiates Screen Pos (NEG) Urine Methadone Screen Neg (NEG) Urine Barbiturates Neg (NEG) Urine Phencyclidine Screen Neg (NEG) Urine Amphetamine/Methamphetamine Neg (NEG) Urine Benzodiazepines Screen Neg (NEG) Urine Cocaine Screen Neg (NEG) Urine Cannabinoids Screen Neg (NEG) Urine Ethyl Alcohol Neg (NEG) White Blood Count 3.8x10^3/uL (4.0-11.0) Red Blood Count 2.98x10^6/uL (4.30-5.70) Hemoglobin 9.3g/dL (13.0-17.5) Hematocrit 28.4% (39.0-53.0) Mean Corpuscular Volume 96fL (79-100) Mean Corpuscular Hemoglobin 31pg (25-35) Mean Corpuscular Hemoglobin Concent 33g/dL (31-37) Red Cell Distribution Width 14.3% (11.5-14.5) Platelet Count 114x10^3/uL (140-400) Neutrophils (%) (Auto) 51% (31-73) Lymphocytes (%) (Auto) 27% (24-48) Monocytes (%) (Auto) 13% (0-9) Eosinophils (%) (Auto) 9% (0-3) Basophils (%) (Auto) 1% (0-3) Neutrophils # (Auto) 1.9x10^3uL (1.8-7.7) Lymphocytes # (Auto) 1.0x10^3/uL (1.0-4.8) Monocytes # (Auto) 0.5x10^3/uL (0.0-1.1) Eosinophils # (Auto) 0.3x10^3/uL (0.0-0.7) Basophils # (Auto) 0.0x10^3/uL (0.0-0.2) Sodium Level 137mmol/L (136-145) Potassium Level 3.4mmol/L (3.5-5.1) Chloride Level 108mmol/L (98-107) Carbon Dioxide Level 20mmol/L (21-32) Anion Gap 9 (6-14) Blood Urea Nitrogen 10mg/dL (8-26) Creatinine 1.1mg/dL (0.7-1.3) Estimated GFR (Cockcroft-Gault) 76.4 Glucose Level 95mg/dL (70-99) Calcium Level 7.9mg/dL (8.5-10.1) Review of Systems Review of Systems cant be obtained - dementia Assessment and Plan Assessmemt and Plan Problems Medical Problems: (1) Diarrhea Status: Acute (2) Encephalopathy acute Status: Acute (3) Hypokalemia Status: Acute Problems: Comment Review of Relevant I have reviewed the following items edith (where applicable) has been applied. Labs Laboratory Tests Test 07/14/16 07:00 07/14/16 07:10 07/15/16 04:12 5/3/17 06:35 White Blood Count 3.6x10^3/uL (4.0-11.0) 3.8x10^3/uL (4.0-11.0) Red Blood Count 3.24x10^6/uL (4.30-5.70) 2.98x10^6/uL (4.30-5.70) Hemoglobin 10.2g/dL (13.0-17.5) 9.3g/dL (13.0-17.5) Hematocrit 31.1% (39.0-53.0) 28.4% (39.0-53.0) Mean Corpuscular Volume 96fL (79-100) 96fL (79-100) Mean Corpuscular Hemoglobin 31pg (25-35) 31pg (25-35) Mean Corpuscular Hemoglobin Concent 33g/dL (31-37) 33g/dL (31-37) Red Cell Distribution Width 14.5% (11.5-14.5) 14.3% (11.5-14.5) Platelet Count 115x10^3/uL (140-400) 114x10^3/uL (140-400) Neutrophils (%) (Auto) 60% (31-73) 51% (31-73) Lymphocytes (%) (Auto) 21% (24-48) 27% (24-48) Monocytes (%) (Auto) 14% (0-9) 13% (0-9) Eosinophils (%) (Auto) 6% (0-3) 9% (0-3) Basophils (%) (Auto) 0% (0-3) 1% (0-3) Neutrophils # (Auto) 2.2x10^3uL (1.8-7.7) 1.9x10^3uL (1.8-7.7) Lymphocytes # (Auto) 0.7x10^3/uL (1.0-4.8) 1.0x10^3/uL (1.0-4.8) Monocytes # (Auto) 0.5x10^3/uL (0.0-1.1) 0.5x10^3/uL (0.0-1.1) Eosinophils # (Auto) 0.2x10^3/uL (0.0-0.7) 0.3x10^3/uL (0.0-0.7) Basophils # (Auto) 0.0x10^3/uL (0.0-0.2) 0.0x10^3/uL (0.0-0.2) Sodium Level 134mmol/L (136-145) 137mmol/L (136-145) Potassium Level 3.6mmol/L (3.5-5.1) 3.4mmol/L (3.5-5.1) Chloride Level 105mmol/L (98-107) 108mmol/L (98-107) Carbon Dioxide Level 22mmol/L (21-32) 20mmol/L (21-32) Anion Gap 7 (6-14) 9 (6-14) Blood Urea Nitrogen 14mg/dL (8-26) 10mg/dL (8-26) Creatinine 1.0mg/dL (0.7-1.3) 1.1mg/dL (0.7-1.3) Estimated GFR (Cockcroft-Gault) 85.3 76.4 Glucose Level 92mg/dL (70-99) 95mg/dL (70-99) Calcium Level 8.0mg/dL (8.5-10.1) 7.9mg/dL (8.5-10.1) Urine Collection Type Unknown Urine Color Yellow Urine Clarity Clear Urine pH 5.5 Urine Specific [place] 1.020 Urine Protein Negativemg/dL (NEG-TRACE) Urine Glucose (UA) Negativemg/dL (NEG) Urine Ketones (Stick) Negativemg/dL (NEG) Urine Blood Trace (NEG) Urine Nitrite Negative (NEG) Urine Bilirubin Negative (NEG) Urine Urobilinogen Dipstick 0.2mg/dL (0.2 mg/dL) Urine Leukocyte Esterase Small (NEG) Urine RBC 3-5/HPF (0-2) Urine WBC 1-4/HPF (0-4) Urine Squamous Epithelial Cells Few/LPF Urine Bacteria 0/HPF (0-FEW) Urine Mucus Slight/LPF Urine Opiates Screen Pos (NEG) Urine Methadone Screen Neg (NEG) Urine Barbiturates Neg (NEG) Urine Phencyclidine Screen Neg (NEG) Urine Amphetamine/Methamphetamine Neg (NEG) Urine Benzodiazepines Screen Neg (NEG) Urine Cocaine Screen Neg (NEG) Urine Cannabinoids Screen Neg (NEG) Urine Ethyl Alcohol Neg (NEG) Laboratory Tests Test 07/15/16 04:12 07/15/16 06:35 Urine Collection Type Unknown Urine Color Yellow Urine Clarity Clear Urine pH 5.5 Urine Specific [place] 1.020 Urine Protein Negativemg/dL (NEG-TRACE) Urine Glucose (UA) Negativemg/dL (NEG) Urine Ketones (Stick) Negativemg/dL (NEG) Urine Blood Trace (NEG) Urine Nitrite Negative (NEG) Urine Bilirubin Negative (NEG) Urine Urobilinogen Dipstick 0.2mg/dL (0.2 mg/dL) Urine Leukocyte Esterase Small (NEG) Urine RBC 3-5/HPF (0-2) Urine WBC 1-4/HPF (0-4) Urine Squamous Epithelial Cells Few/LPF Urine Bacteria 0/HPF (0-FEW) Urine Mucus Slight/LPF Urine Opiates Screen Pos (NEG) Urine Methadone Screen Neg (NEG) Urine Barbiturates Neg (NEG) Urine Phencyclidine Screen Neg (NEG) Urine Amphetamine/Methamphetamine Neg (NEG) Urine Benzodiazepines Screen Neg (NEG) Urine Cocaine Screen Neg (NEG) Urine Cannabinoids Screen Neg (NEG) Urine Ethyl Alcohol Neg (NEG) White Blood Count 3.8x10^3/uL (4.0-11.0) Red Blood Count 2.98x10^6/uL (4.30-5.70) Hemoglobin 9.3g/dL (13.0-17.5) Hematocrit 28.4% (39.0-53.0) Mean Corpuscular Volume 96fL (79-100) Mean Corpuscular Hemoglobin 31pg (25-35) Mean Corpuscular Hemoglobin Concent 33g/dL (31-37) Red Cell Distribution Width 14.3% (11.5-14.5) Platelet Count 114x10^3/uL (140-400) Neutrophils (%) (Auto) 51% (31-73) Lymphocytes (%) (Auto) 27% (24-48) Monocytes (%) (Auto) 13% (0-9) Eosinophils (%) (Auto) 9% (0-3) Basophils (%) (Auto) 1% (0-3) Neutrophils # (Auto) 1.9x10^3uL (1.8-7.7) Lymphocytes # (Auto) 1.0x10^3/uL (1.0-4.8) Monocytes # (Auto) 0.5x10^3/uL (0.0-1.1) Eosinophils # (Auto) 0.3x10^3/uL (0.0-0.7) Basophils # (Auto) 0.0x10^3/uL (0.0-0.2) Sodium Level 137mmol/L (136-145) Potassium Level 3.4mmol/L (3.5-5.1) Chloride Level 108mmol/L (98-107) Carbon Dioxide Level 20mmol/L (21-32) Anion Gap 9 (6-14) Blood Urea Nitrogen 10mg/dL (8-26) Creatinine 1.1mg/dL (0.7-1.3) Estimated GFR (Cockcroft-Gault) 76.4 Glucose Level 95mg/dL (70-99) Calcium Level 7.9mg/dL (8.5-10.1) Microbiology 07/13/16 Blood Culture - Preliminary, Resulted NO GROWTH AFTER 1 DAY Medications Current Medications Sodium Chloride (Iv Sodium Chloride 0.9% 1000ml Bag) 1,000 ml @ 1,000 mls/hr 1X ONCE IV Last administered on 07/12/16 19:45; Start 07/12/16 at 19:30; Stop 07/12/16 at 20:29; Status DC Ondansetron HCl (Zofran) 4 mg PRN Q8HRS PRN IV NAUSEA/VOMITING; Start 07/12/16 at 20:30; Stop 07/13/16 at 20:29; Status DC Morphine Sulfate 4 mg 4 mg PRN Q2HR PRN IV PAIN; Start 07/12/16 at 20:30; Stop 07/13/16 at 20:29; Status DC Potassium Chloride/Sodium Chloride (Iv Sodium Chloride 0.9% 1000ml Bag) 1,015 ml @ 75 mls/hr [id number] IV Last administered on 07/15/16 08:16; Start 07/12/16 at 20:45 Donepezil HCl (Aricept) 10 mg DAILY PO Last administered on 07/15/16 08:16; Start 07/13/16 at 16:00 Losartan Potassium (Cozaar) 12.5 mg DAILY PO Last administered on 07/15/16 08: 17; Start 07/13/16 at 16:00 Tamsulosin HCl (Flomax) 0.4 mg DAILY PO Last administered on 07/15/16 08:16; Start 07/13/16 at 16:00 Latanoprost (Xalatan) 1 drop QHS OU Last administered on 07/14/16 20:40; Start 07/13/16 at 21:00 Dorzolamide HCl (Trusopt) 2 drop DAILY OU Last administered on 07/15/16 08:16; Start 07/13/16 at 16:00 Potassium Chloride (Klor-Con) 40 meq 1X ONCE PO ; Start 07/13/16 at 15:15; Stop 07/13/16 at 15:15; Status DC Acetaminophen (Tylenol) 325 mg PRN Q6HRS PRN PO MILD PAIN / TEMP; Start at 15:15 Acetaminophen/ Hydrocodone Bitart (Lortab 5/325) 1 tab PRN Q6HRS PRN PO MODERATE TO SEVERE PAIN Last administered on 07/14/16 16:08; Start 07/13/16 at 15 :15 Hydralazine HCl (Apresoline) 10 mg PRN Q4HRS PRN IVP ELEVATED BP, SEE COMMENTS ; Start 07/13/16 at 15:15 Ondansetron HCl (Zofran) 4 mg PRN Q8HRS PRN IV NAUSEA/VOMITING; Start 07/13/16 at 15:15; Stop 07/15/16 at 08:46; Status DC Albuterol Sulfate 2.5 mg 2.5 mg PRN Q4HRS PRN NEB SHORTNESS OF BREATH; Start at 15:15 Ciprofloxacin Lactate 100 ml @ 100 mls/hr Q12HR IV Last administered on 08:16; Start 07/13/16 at 15:30; Stop 07/15/16 at 12:22; Status DC Metronidazole (FLAGYL 500Mmg PREMIX) 100 ml @ 100 mls/hr Q8HRS IV Last administered on 07/15/16 05:32; Start 07/13/16 at 15:30; Stop 07/15/16 at 12:20; Status DC Ondansetron HCl (Zofran) 4 mg PRN Q6HRS PRN IV NAUSEA/VOMITING; Start 07/15/16 at 08:44 Potassium Chloride (Klor-Con) 20 meq 1X ONCE PO Last administered on 07/15/16t 09:30; Start 07/15/16 at 09:30; Stop 07/15/16 at 09:31; Status DC Metronidazole (Flagyl) 500 mg Q8HRS PO ; Start 07/15/16 at 14:00 Ciprofloxacin (Cipro) 250 mg BID PO ; Start 07/15/16 at 21:00 Active Scripts Active Reported [dozolamide ] 2 Drop EACHEYE DAILY Travatan Z (Travoprost) 5 Ml Drops 1 Drop EACHEYE QHS Tamsulosin Hcl 0.4 Mg Cap.er.24h 1 Cap PO DAILY Donepezil Hcl 10 Mg Tablet 1 Tab PO DAILY Losartan Potassium 25 Mg Tablet 12.5 Mg PO DAILY Vitals/I & O Vital Sign - Last 24 Hours 07/14/16 07/14/16 07/14/16 07/15/16 15:03 19:00 23:20 02:57 Temp 98.0 97.9 97.9 98.0 97.9 97.9 Pulse 57 65 64 Resp 18 18 18 B/P 121/65 155/74 128/60 Pulse Ox 96 99 100 O2 Delivery Room Air Room Air Room Air Room Air 07/15/16 07/15/16 07/15/16 07/15/16 07:00 08:00 08:17 11:00 Temp 97.6 97.8 97.6 97.8 Pulse 66 66 98 Resp 14 20 B/P 140/83 140/83 132/71 Pulse Ox 99 97 O2 Delivery Room Air Room Air Room Air Intake and Output 07/14/16 07/14/16 07/15/16 15:00 23:00 07:00 Intake Total 360 ml 120 ml Output Total 1 ml 3 ml 100 ml Balance -1 ml 357 ml 20 ml JERMAIN WHEELER MD July 15, 2016 13:35
[2016-07-15 15:00] VITALS: BP 134/74
[2016-07-15] MEDS ORDERED: LORazepam 1 MG TABLET PO PRN (17:00)
[2016-07-15] MEDS ORDERED: HALOPERIDOL DECANOATE IM ER 50 MG/ML VIAL. IM PRN (17:00)
[2016-07-15] MEDS ORDERED: HALOPERIDOL LACTATE 5 MG/ML VIAL. IVP PRN (17:00)
[2016-07-15] MEDS ORDERED: HALOPERIDOL LACTATE 5 MG/ML VIAL. IM PRN (17:04)
[2016-07-15] MEDS: LATANOPROST 0.005% OPHTH SOLUTION 2.5ML BOTTLE. OU SCH (21:00)
[2016-07-15 22:40] VITALS: BP 135/51
[2016-07-16] MEDS: metroNIDAZOLE 500 MG TABLET PO SCH ×2 (02:30→08:59)
[2016-07-16] MEDS: CIPROFLOXACIN HCL 250 MG TABLET. PO SCH ×2 (02:30→08:59)
[2016-07-16 03:04] VITALS: BP 130/62
[2016-07-16 07:00] VITALS: BP 114/74
[2016-07-16 07:57] LABS: CALCIUM 8.1 mg/dL (8.5-10.1); GFR 85.3; POTASSIUM 3.7 mmol/L (3.5-5.1)
[2016-07-16 07:59] LABS: BASO % 1 % (0-3); EOS % 10 % (0-3); HEMATOCRIT 27.9 % (39.0-53.0); HEMOGLOBIN 9.3 g/dL (13.0-17.5); LYMPH # 1.2 x10^3/uL (1.0-4.8); LYMPH % 29 % (24-48); MEAN CORPUSCULAR HEMOGLOBIN 32 pg (25-35); MEAN CORPUSCULAR HGB CONC 33 g/dL (31-37); MEAN CORPUSCULAR VOLUME 94 fL (79-100); MONO % 16 % (0-9); NEUT % 45 % (31-73); PLATELET COUNT 118 x10^3/uL (140-400); RED BLOOD COUNT 2.96 x10^6/uL (4.30-5.70); RED CELL DISTRIBUTION WIDTH 14.2 % (11.5-14.5); WHITE BLOOD COUNT 4.2 x10^3/uL (4.0-11.0)
[2016-07-16] MEDS: POTASSIUM CHLORIDE 30 MEQ in IV NORMAL SALINE 1000ML BAG 1,000 ML IV SCH (08:57)
[2016-07-16] MEDS: DONEPEZIL HCL 10 MG TABLET. PO SCH (08:59)
[2016-07-16] MEDS: TAMSULOSIN 0.4 MG CAP.ER.24H. PO SCH (08:59)
[2016-07-16] MEDS: LOSARTAN POTASSIUM 25 MG TABLET. PO SCH (08:59)
[2016-07-16] MEDS: DORZOLAMIDE 2% OPHTH SOLUTION 10ML BOTTLE. OU SCH (09:05)
[2016-07-16 10:58] VITALS: BP 123/74
--- NOTE | 2016-07-16 12:44 | PDOC3 ---
Discharge Summary Visit Information Date of Admission: Jul 12, 2016 Date of Discharge: July 16, 2016 Admitting Diagnosis Comment: 1. FTT sx, likely dementia 2. Dehydration due to diarrhea. resolved 3. Hypokalemia.replaced 4. Acute kidney injury. resolved 5. Vasomotor nephropathy due to dehydration. 6. Hypertension. stable. 7. Urinary incontinence Final Diagnosis Problems Medical Problems: (1) Diarrhea Status: Acute (2) Encephalopathy acute Status: Acute (3) Hypokalemia Status: Acute Brief Hospital Course Allergies Allergies Coded Allergies Type Severity Reaction Last Updated Verified No Known Drug Allergies 07/18/13 No Vital Signs Vital Signs Date Time Temp Pulse Resp B/P (MAP) Pulse Ox O2 Delivery O2 Flow Rate FiO2 07/16/16 10:58 98.0 76 18 123/74 (90) 100 Room Air 98.0 Lab Results Laboratory Tests Test 07/15/16 04:12 07/15/16 06:35 07/15/16 14:00 07/16/16 06:20 Urine Collection Type Unknown Urine Color Yellow Urine Clarity Clear Urine pH 5.5 Urine Specific [place] 1.020 Urine Protein Negative mg/dL (NEG-TRACE) Urine Glucose (UA) Negative mg/dL (NEG) Urine Ketones (Stick) Negative mg/dL (NEG) Urine Blood Trace (NEG) Urine Nitrite Negative (NEG) Urine Bilirubin Negative (NEG) Urine Urobilinogen Dipstick 0.2 mg/dL (0.2 mg/dL) Urine Leukocyte Esterase Small (NEG) Urine RBC 3-5 /HPF (0-2) Urine WBC 1-4 /HPF (0-4) Urine Squamous Epithelial Cells Few /LPF Urine Bacteria 0 /HPF (0-FEW) Urine Mucus Slight /LPF Urine Opiates Screen Pos (NEG) Urine Methadone Screen Neg (NEG) Urine Barbiturates Neg (NEG) Urine Phencyclidine Screen Neg (NEG) Urine Amphetamine/Methamphetamine Neg (NEG) Urine Benzodiazepines Screen Neg (NEG) Urine Cocaine Screen Neg (NEG) Urine Cannabinoids Screen Neg (NEG) Urine Ethyl Alcohol Neg (NEG) White Blood Count 3.8 x10^3/uL (4.0-11.0) 4.2 x10^3/uL (4.0-11.0) Red Blood Count 2.98 x10^6/uL (4.30-5.70) 2.96 x10^6/uL (4.30-5.70) Hemoglobin 9.3 g/dL (13.0-17.5) 9.3 g/dL (13.0-17.5) Hematocrit 28.4 % (39.0-53.0) 27.9 % (39.0-53.0) Mean Corpuscular Volume 96 fL (79-100) 94 fL (79-100) Mean Corpuscular Hemoglobin 31 pg (25-35) 32 pg (25-35) Mean Corpuscular Hemoglobin Concent 33 g/dL (31-37) 33 g/dL (31-37) Red Cell Distribution Width 14.3 % (11.5-14.5) 14.2 % (11.5-14.5) Platelet Count 114 x10^3/uL (140-400) 118 x10^3/uL (140-400) Neutrophils (%) (Auto) 51 % (31-73) 45 % (31-73) Lymphocytes (%) (Auto) 27 % (24-48) 29 % (24-48) Monocytes (%) (Auto) 13 % (0-9) 16 % (0-9) Eosinophils (%) (Auto) 9 % (0-3) 10 % (0-3) Basophils (%) (Auto) 1 % (0-3) 1 % (0-3) Neutrophils # (Auto) 1.9 x10^3uL (1.8-7.7) 1.9 x10^3uL (1.8-7.7) Lymphocytes # (Auto) 1.0 x10^3/uL (1.0-4.8) 1.2 x10^3/uL (1.0-4.8) Monocytes # (Auto) 0.5 x10^3/uL (0.0-1.1) 0.7 x10^3/uL (0.0-1.1) Eosinophils # (Auto) 0.3 x10^3/uL (0.0-0.7) 0.4 x10^3/uL (0.0-0.7) Basophils # (Auto) 0.0 x10^3/uL (0.0-0.2) 0.0 x10^3/uL (0.0-0.2) Sodium Level 137 mmol/L (136-145) 141 mmol/L (136-145) Potassium Level 3.4 mmol/L (3.5-5.1) 3.7 mmol/L (3.5-5.1) Chloride Level 108 mmol/L (98-107) 108 mmol/L (98-107) Carbon Dioxide Level 20 mmol/L (21-32) 24 mmol/L (21-32) Anion Gap 9 (6-14) 9 (6-14) Blood Urea Nitrogen 10 mg/dL (8-26) 8 mg/dL (8-26) Creatinine 1.1 mg/dL (0.7-1.3) 1.0 mg/dL (0.7-1.3) Estimated GFR (Cockcroft-Gault) 76.4 85.3 Glucose Level 95 mg/dL (70-99) 105 mg/dL (70-99) Calcium Level 7.9 mg/dL (8.5-10.1) 8.1 mg/dL (8.5-10.1) Erythrocyte Sedimentation Rate 50 (0-15) Laboratory Tests Test 07/15/16 14:00 07/16/16 06:20 Erythrocyte Sedimentation Rate 50 (0-15) White Blood Count 4.2 x10^3/uL (4.0-11.0) Red Blood Count 2.96 x10^6/uL (4.30-5.70) Hemoglobin 9.3 g/dL (13.0-17.5) Hematocrit 27.9 % (39.0-53.0) Mean Corpuscular Volume 94 fL (79-100) Mean Corpuscular Hemoglobin 32 pg (25-35) Mean Corpuscular Hemoglobin Concent 33 g/dL (31-37) Red Cell Distribution Width 14.2 % (11.5-14.5) Platelet Count 118 x10^3/uL (140-400) Neutrophils (%) (Auto) 45 % (31-73) Lymphocytes (%) (Auto) 29 % (24-48) Monocytes (%) (Auto) 16 % (0-9) Eosinophils (%) (Auto) 10 % (0-3) Basophils (%) (Auto) 1 % (0-3) Neutrophils # (Auto) 1.9 x10^3uL (1.8-7.7) Lymphocytes # (Auto) 1.2 x10^3/uL (1.0-4.8) Monocytes # (Auto) 0.7 x10^3/uL (0.0-1.1) Eosinophils # (Auto) 0.4 x10^3/uL (0.0-0.7) Basophils # (Auto) 0.0 x10^3/uL (0.0-0.2) Sodium Level 141 mmol/L (136-145) Potassium Level 3.7 mmol/L (3.5-5.1) Chloride Level 108 mmol/L (98-107) Carbon Dioxide Level 24 mmol/L (21-32) Anion Gap 9 (6-14) Blood Urea Nitrogen 8 mg/dL (8-26) Creatinine 1.0 mg/dL (0.7-1.3) Estimated GFR (Cockcroft-Gault) 85.3 Glucose Level 105 mg/dL (70-99) Calcium Level 8.1 mg/dL (8.5-10.1) Brief Hospital Course Mr. Garcia is a 89 old AA male admitted for FTT sxs, no UTI, CXR and CT head clean, based on sxs dementia undiagnosed. SOn takes care of him and is getting to be challenging for him, Acceoted at PPE, HAd soem diarrhea, c diff neg, treated with cipro and flagyl, better. Likely viral, has completed 5 day course dw Rn Pt seen and examined Dw SW - dc 31 mins > 50% arranging dc etc Discharge Information Condition at Discharge: Improved, Stable Disposition/Orders: Other (snf) Scheduled Donepezil Hcl (Donepezil Hcl), 1 TAB PO DAILY, (Reported) Losartan Potassium (Losartan Potassium), 12.5 MG PO DAILY, (Reported) Tamsulosin Hcl (Tamsulosin Hcl), 1 CAP PO DAILY, (Reported) Travoprost (Travatan Z), 1 DROP EACHEYE QHS, (Reported) [dozolamide ], 2 DROP EACHEYE DAILY, (Reported) JERMAIN WHEELER MD July 16, 2016 12:44
== END 2016-07-16 14:22 | DRG 682 ==
LOC: EDBD 18:43 → ER 18:43 → 5 SOUTH 20:15
PROVIDERS: ADMIT Internal Medicine; ATTEND Internal Medicine
DX: N17.0 Acute kidney failure with tubular necrosis (principal); G93.40 Encephalopathy, unspecified; E87.6 Hypokalemia; R41.82 Altered mental status, unspecified; F03.90 Unspecified dementia, unspecified severity, without behavioral disturbance, psychotic disturbance, mood disturbance, and anxiety; I10 Essential (primary) hypertension; R32 Unspecified urinary incontinence; N40.1 Benign prostatic hyperplasia with lower urinary tract symptoms; R62.7 Adult failure to thrive; E86.0 Dehydration; R19.7 Diarrhea, unspecified; Z98.49 Cataract extraction status, unspecified eye; A08.4 Viral intestinal infection, unspecified
CPT/HCPCS: 36415; 70450; 71010; 80048; 80053; 81001; 83880; 84443; 84484; 85027; 85651; 87040; 87086; 87324; 93005; 94250; 94760; 96360; G0481; J0744; J3490; J7030; 92610; 97110; 97116; 97535; 99285-25

== ENCOUNTER 2016-07-31 11:02 | Inpatient (IN) | payer MEDICARE ==
[~2016-07-31] VITALS: Ht 175.3 cm; Wt 64.5 kg
--- NOTE | 2016-07-31 11:52 | PHYS DOC ---
Past Medical History Past Medical History: Hypertension, Renal Failure, Other Additional Past Medical Histor: cataract, BPH, ENCEPHALOPATHY, ALZHEIMER'S Past Surgical History: Other Additional Past Surgical Histo: cataract removal, prostate surgery -- UNKNOWN Alcohol Use: None Drug Use: None Adult General Chief Complaint Chief Complaint: MECHANICAL FALL HPI HPI Patient is a 89 year old male who presents with history of a fall 2 days ago. He is averbal and otherwise we cannot get any other information. Review of Systems Review of Systems unable to obtain secondary to patient being averbal Current Medications Current Medications Current Medications Medications (Trade) Dose Ordered Sig/Radha Start Time Stop Time Status Last Admin Dose Admin Info (Do NOT chart on this entry -- for MONITORING) 1 each PRN DAILY PRN 07/31/16 14:00 08/02/16 13:59 Iohexol (Omnipaque 300 Mg/ml) 75 ml 1X ONCE 07/31/16 14:00 07/31/16 14:01 DC 07/31/16 14:07 75 ML Allergies Allergies Allergies Coded Allergies Type Severity Reaction Last Updated Verified No Known Drug Allergies 07/18/13 No Physical Exam Physical Exam Constitutional: Well developed, well nourished, no acute distress, non-toxic appearance. [] HENT: Normocephalic, atraumatic, bilateral external ears normal, oropharynx moist, no oral exudates, nose normal. [] Eyes: PERRLA, EOMI, conjunctiva normal, no discharge. [] Neck: Normal range of motion, no tenderness, supple, no stridor. [] Cardiovascular:Heart rate regular rhythm, no murmur [] Lungs & Thorax: Bilateral breath sounds clear to auscultation [] Abdomen: Bowel sounds normal, soft, palpation in the left lower quadrant, no masses, no pulsatile masses. [] Skin: Warm, dry, no erythema, no rash. [] Back: No tenderness, no CVA tenderness. [] Extremities: Tender to palpation over the left hip, no cyanosis, no clubbing, ROM intact, no edema, dorsal pedis pulse on the left 2+. [] Current Patient Data Vital Signs Vital Signs Date Time Temp Pulse Resp B/P (MAP) Pulse Ox O2 Delivery O2 Flow Rate FiO2 07/31/16 11:07 99.5 86 18 165/78 (107) 100 Room Air 99.5 Lab Values Laboratory Tests Test 07/31/16 13:15 07/31/16 14:43 White Blood Count 5.0 x10^3/uL (4.0-11.0) Red Blood Count 3.29 x10^6/uL (4.30-5.70) L Hemoglobin 10.3 g/dL (13.0-17.5) L Hematocrit 31.2 % (39.0-53.0) L Mean Corpuscular Volume 95 fL (79-100) Mean Corpuscular Hemoglobin 31 pg (25-35) Mean Corpuscular Hemoglobin Concent 33 g/dL (31-37) Red Cell Distribution Width 14.1 % (11.5-14.5) Platelet Count 165 x10^3/uL (140-400) Neutrophils (%) (Auto) 74 % (31-73) H Lymphocytes (%) (Auto) 13 % (24-48) L Monocytes (%) (Auto) 12 % (0-9) H Eosinophils (%) (Auto) 1 % (0-3) Basophils (%) (Auto) 1 % (0-3) Neutrophils # (Auto) 3.7 x10^3uL (1.8-7.7) Lymphocytes # (Auto) 0.6 x10^3/uL (1.0-4.8) L Monocytes # (Auto) 0.6 x10^3/uL (0.0-1.1) Eosinophils # (Auto) 0.1 x10^3/uL (0.0-0.7) Basophils # (Auto) 0.0 x10^3/uL (0.0-0.2) Prothrombin Time 14.1 SEC (11.7-14.0) H Prothrombin Time INR 1.2 (0.8-1.1) H PTT 44 SEC (24-38) H Sodium Level 137 mmol/L (136-145) Potassium Level 3.8 mmol/L (3.5-5.1) Chloride Level 101 mmol/L (98-107) Carbon Dioxide Level 29 mmol/L (21-32) Anion Gap 7 (6-14) Blood Urea Nitrogen 20 mg/dL (8-26) Creatinine 0.9 mg/dL (0.7-1.3) Estimated GFR (Cockcroft-Gault) 96.4 Glucose Level 118 mg/dL (70-99) H Calcium Level 9.0 mg/dL (8.5-10.1) Total Bilirubin 1.0 mg/dL (0.2-1.0) Direct Bilirubin 0.3 mg/dL (0.0-0.2) H Aspartate Amino Transferase (AST) 21 U/L (15-37) Alanine Aminotransferase (ALT) 22 U/L (16-63) Alkaline Phosphatase 57 U/L (46-116) Creatine Kinase 112 U/L (39-308) Creatine Kinase MB (Mass) < 0.5 ng/mL (0.0-3.6) Creatine Kinase MB Relative Index % (0-4) Troponin I Quantitative < 0.017 ng/mL (0.000-0.055) Total Protein 7.9 g/dL (6.4-8.2) Albumin 2.6 g/dL (3.4-5.0) L Lipase 104 U/L (73-393) Urine Collection Type Unknown Urine Color Yellow Urine Clarity Clear Urine pH 5.5 Urine Specific [place] 1.025 Urine Protein Negative mg/dL (NEG-TRACE) Urine Glucose (UA) Negative mg/dL (NEG) Urine Ketones (Stick) Negative mg/dL (NEG) Urine Blood Small (NEG) Urine Nitrite Negative (NEG) Urine Bilirubin Negative (NEG) Urine Urobilinogen Dipstick 0.2 mg/dL (0.2 mg/dL) Urine Leukocyte Esterase Negative (NEG) Urine RBC 1-2 /HPF (0-2) Urine WBC 0 /HPF (0-4) Urine Squamous Epithelial Cells Few /LPF Urine Bacteria 0 /HPF (0-FEW) Urine Mucus Slight /LPF Laboratory Tests 07/31/16 13:15 Laboratory Tests 07/31/16 13:15 EKG EKG EKG shows heart rate of [address] elevations or T-wave inversions, left axis deviation, QTC 4 and 32 ms, as interpreted by me. Radiology/Procedures Radiology/Procedures [facility] [address] [place], [place] [id number] IMAGING REPORT Signed PATIENT: VIRAL BROCK ACCOUNT: [id number] : 1925 LOCATION: ER AGE: 89 SEX: M EXAM STATUS: REG ER ORD. PHYSICIAN: STACY COPPOLA MD REASON: hip pain PROCEDURE: HIP BILATERAL WITH PELVIS Pelvis with both hips, 5 views, 07/31/2016: History: Fall There is a fracture of the left femoral neck with a mild varus deformity at the fracture site. No other fracture or dislocation is identified. There is mild narrowing of both hip joints with mild marginal spurring. There is a small fecal impaction in the rectum. IMPRESSION: Left femoral neck fracture DICTATED and SIGNED BY: MABEL DUNHAM MD DATE: 07/31/16 1325 CC: STACY COPPOLA MD; GLADYS BURK MD ~ [facility] [address] [place], [place] [id number] IMAGING REPORT Signed PATIENT: VIRAL BROCK ACCOUNT: [id number] : 1925 LOCATION: ER AGE: 89 SEX: M EXAM STATUS: REG ER ORD. PHYSICIAN: STACY COPPOLA MD REASON: abd pain PROCEDURE: CT ABD PELV W/ IV CONTRST ONLY CT of the abdomen and pelvis with contrast, 07/31/2016: History: Fall, abdominal pain Multidetector CT imaging was performed following an IV bolus injection of iodinated contrast material. No oral contrast material was administered for this study. There are moderate coronary artery calcifications. The lung bases are clear. There are streak artifacts on the upper images related to the patient's arms. No hepatic or splenic laceration is seen. The gallbladder is unremarkable. No pancreatic abnormality is detected. There is a 4 cm cyst in the right kidney. The kidneys are otherwise unremarkable. There is moderate aortoiliac calcific plaquing. No adenopathy is seen. The bladder is mildly distended. There is a moderate amount of gas and stool throughout the colon. The colon is quite redundant. There is a moderate amount stool in the rectum. The small bowel loops are not dilated. The stomach is not distended. No free fluid or free air is evident in the abdomen or pelvis. There is a subcapital fracture of the left femoral neck. There is mild impaction of the fracture fragments with a mild varus deformity at the fracture site. There are moderate scattered degenerative changes in the spine. There is patchy bony demineralization. IMPRESSION: 1. 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 2. Mild distention of the urinary bladder. 3. Subcapital left hip fracture. PQRS Compliance Statement: One or more of the following individualized dose reduction techniques were utilized for this examination: 1. Automated exposure control 2. Adjustment of the mA and/or kV according to patient size 3. Use of iterative reconstruction technique DICTATED and SIGNED BY: MABEL DUNHAM MD DATE: 07/31/16 1429 CC: STACY COPPOLA MD; GLADYS BURK MD ~ Impressions: Left hip fracture Course & Med Decision Making Course & Med Decision Making Pertinent Labs and Imaging studies reviewed. (See chart for details) She is a verbal but has pain over the left lower quadrant and left hip, CT of the abdomen and pelvis is nonacute and x-ray shows left hip fracture. Patient is being admitted to the hospitalist with consultation to Dr. Avendaño. Patient's in stable condition at this time with interim orders being written. Dragon Disclaimer Dragon Disclaimer This electronic medical record was generated, in whole or in part, using a voice recognition dictation system. Departure Departure Impression: Primary Impression: Hip fracture, left Disposition: ADMITTED INPATIENT Admitting Physician: Eda Norman Condition: STABLE Referrals: GLADYS BURK MD (PCP) Problem Qualifiers Primary Impression: Hip fracture, left Encounter type: initial encounter Fracture type: closed Qualified Codes: S72.002A - Fracture of unspecified part of neck of left femur, initial encounter for closed fracture STACY COPPOLA MD July 31, 2016 11:52
--- NOTE | 2016-07-31 13:30 | RAD ---
Pelvis with both hips, 5 views, 07/31/2016: History: Fall There is a fracture of the left femoral neck with a mild varus deformity at the fracture site. No other fracture or dislocation is identified. There is mild narrowing of both hip joints with mild marginal spurring. There is a small fecal impaction in the rectum. IMPRESSION: Left femoral neck fracture
[2016-07-31 13:31] LABS: BASO % 1 % (0-3); EOS % 1 % (0-3); HEMATOCRIT 31.2 % (39.0-53.0); HEMOGLOBIN 10.3 g/dL (13.0-17.5); LYMPH # 0.6 x10^3/uL (1.0-4.8); LYMPH % 13 % (24-48); MEAN CORPUSCULAR HEMOGLOBIN 31 pg (25-35); MEAN CORPUSCULAR HGB CONC 33 g/dL (31-37); MEAN CORPUSCULAR VOLUME 95 fL (79-100); MONO % 12 % (0-9); NEUT % 74 % (31-73); PLATELET COUNT 165 x10^3/uL (140-400); RED BLOOD COUNT 3.29 x10^6/uL (4.30-5.70); RED CELL DISTRIBUTION WIDTH 14.1 % (11.5-14.5)
[2016-07-31 13:38] LABS: INR 1.2 (0.8-1.1); PROTHROMBIN TIME PATIENT 14.1 SEC (11.7-14.0)
[2016-07-31 13:39] LABS: CREATININE 0.9 mg/dL (0.7-1.3); GFR 96.4; POTASSIUM 3.8 mmol/L (3.5-5.1)
[2016-07-31 13:45] LABS: ALBUMIN 2.6 g/dL (3.4-5.0); DIRECT BILIRUBIN 0.3 mg/dL (0.0-0.2); TOTAL PROTEIN 7.9 g/dL (6.4-8.2)
[2016-07-31] MEDS ORDERED: CONTRAST GIVEN MC PRN (14:00)
[2016-07-31] MEDS ORDERED: IOHEXOL 300 MG/ML 75 ML VIAL IV ONE (14:00)
[2016-07-31 14:02] LABS: CKMB MASS < 0.5 ng/mL (0.0-3.6); CREATINE KINASE 112 U/L (39-308)
--- NOTE | 2016-07-31 14:42 | RAD ---
CT of the abdomen and pelvis with contrast, 07/31/2016: History: Fall, abdominal pain Multidetector CT imaging was performed following an IV bolus injection of iodinated contrast material. No oral contrast material was administered for this study. There are moderate coronary artery calcifications. The lung bases are clear. There are streak artifacts on the upper images related to the patient's arms. No hepatic or splenic laceration is seen. The gallbladder is unremarkable. No pancreatic abnormality is detected. There is a 4 cm cyst in the right kidney. The kidneys are otherwise unremarkable. There is moderate aortoiliac calcific plaquing. No adenopathy is seen. The bladder is mildly distended. There is a moderate amount of gas and stool throughout the colon. The colon is quite redundant. There is a moderate amount stool in the rectum. The small bowel loops are not dilated. The stomach is not distended. No free fluid or free air is evident in the abdomen or pelvis. There is a subcapital fracture of the left femoral neck. There is mild impaction of the fracture fragments with a mild varus deformity at the fracture site. There are moderate scattered degenerative changes in the spine. There is patchy bony demineralization. IMPRESSION: 1. 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 2. Mild distention of the urinary bladder. 3. Subcapital left hip fracture. PQRS Compliance Statement: One or more of the following individualized dose reduction techniques were utilized for this examination: 1. Automated exposure control 2. Adjustment of the mA and/or kV according to patient size 3. Use of iterative reconstruction technique
[2016-07-31 14:51] LABS: BILIRUBIN,URINE NEGATIVE (NEG); GLUCOSE,URINE NEGATIVE (NEG); NITRITE,URINE NEGATIVE (NEG); PH,URINE 5.5; PROTEIN,URINE NEGATIVE (NEG-TRACE); UROBILINOGEN,URINE 0.2 mg/dL (0.2 mg/dL)
[2016-07-31 15:29] LABS: BACTERIA,URINE 0 /HPF (0-FEW); SQUAMOUS EPITHELIAL CELL,UR FEW /LPF; WBC,URINE 0 /HPF (0-4)
[2016-07-31] MEDS ORDERED: ONDANSETRON PF 4 MG/2 ML VIAL. IV PRN ×2 (15:45→16:34)
--- NOTE | 2016-07-31 16:01 | PDOC ---
ORTHO PROGRESS NOTES Vitals Vital Signs Date Time Temp Pulse Resp B/P (MAP) Pulse Ox O2 Delivery O2 Flow Rate FiO2 07/31/16 11:07 99.5 86 18 165/78 (107) 100 Room Air 99.5 Labs Laboratory Tests Test 07/31/16 13:15 07/31/16 14:43 White Blood Count 5.0 x10^3/uL (4.0-11.0) Red Blood Count 3.29 x10^6/uL (4.30-5.70) Hemoglobin 10.3 g/dL (13.0-17.5) Hematocrit 31.2 % (39.0-53.0) Mean Corpuscular Volume 95 fL (79-100) Mean Corpuscular Hemoglobin 31 pg (25-35) Mean Corpuscular Hemoglobin Concent 33 g/dL (31-37) Red Cell Distribution Width 14.1 % (11.5-14.5) Platelet Count 165 x10^3/uL (140-400) Neutrophils (%) (Auto) 74 % (31-73) Lymphocytes (%) (Auto) 13 % (24-48) Monocytes (%) (Auto) 12 % (0-9) Eosinophils (%) (Auto) 1 % (0-3) Basophils (%) (Auto) 1 % (0-3) Neutrophils # (Auto) 3.7 x10^3uL (1.8-7.7) Lymphocytes # (Auto) 0.6 x10^3/uL (1.0-4.8) Monocytes # (Auto) 0.6 x10^3/uL (0.0-1.1) Eosinophils # (Auto) 0.1 x10^3/uL (0.0-0.7) Basophils # (Auto) 0.0 x10^3/uL (0.0-0.2) Prothrombin Time 14.1 SEC (11.7-14.0) Prothromb Time International Ratio 1.2 (0.8-1.1) Activated Partial Thromboplast Time 44 SEC (24-38) Sodium Level 137 mmol/L (136-145) Potassium Level 3.8 mmol/L (3.5-5.1) Chloride Level 101 mmol/L (98-107) Carbon Dioxide Level 29 mmol/L (21-32) Anion Gap 7 (6-14) Blood Urea Nitrogen 20 mg/dL (8-26) Creatinine 0.9 mg/dL (0.7-1.3) Estimated GFR (Cockcroft-Gault) 96.4 Glucose Level 118 mg/dL (70-99) Calcium Level 9.0 mg/dL (8.5-10.1) Total Bilirubin 1.0 mg/dL (0.2-1.0) Direct Bilirubin 0.3 mg/dL (0.0-0.2) Aspartate Amino Transf (AST/SGOT) 21 U/L (15-37) Alanine Aminotransferase (ALT/SGPT) 22 U/L (16-63) Alkaline Phosphatase 57 U/L (46-116) Creatine Kinase 112 U/L (39-308) Creatine Kinase MB (Mass) < 0.5 ng/mL (0.0-3.6) Creatine Kinase MB Relative Index % (0-4) Troponin I Quantitative < 0.017 ng/mL (0.000-0.055) Total Protein 7.9 g/dL (6.4-8.2) Albumin 2.6 g/dL (3.4-5.0) Lipase 104 U/L (73-393) Urine Collection Type Unknown Urine Color Yellow Urine Clarity Clear Urine pH 5.5 Urine Specific [place] 1.025 Urine Protein Negative mg/dL (NEG-TRACE) Urine Glucose (UA) Negative mg/dL (NEG) Urine Ketones (Stick) Negative mg/dL (NEG) Urine Blood Small (NEG) Urine Nitrite Negative (NEG) Urine Bilirubin Negative (NEG) Urine Urobilinogen Dipstick 0.2 mg/dL (0.2 mg/dL) Urine Leukocyte Esterase Negative (NEG) Urine RBC 1-2 /HPF (0-2) Urine WBC 0 /HPF (0-4) Urine Squamous Epithelial Cells Few /LPF Urine Bacteria 0 /HPF (0-FEW) Urine Mucus Slight /LPF Laboratory Tests Test 07/31/16 13:15 07/31/16 14:43 White Blood Count 5.0 x10^3/uL (4.0-11.0) Red Blood Count 3.29 x10^6/uL (4.30-5.70) Hemoglobin 10.3 g/dL (13.0-17.5) Hematocrit 31.2 % (39.0-53.0) Mean Corpuscular Volume 95 fL (79-100) Mean Corpuscular Hemoglobin 31 pg (25-35) Mean Corpuscular Hemoglobin Concent 33 g/dL (31-37) Red Cell Distribution Width 14.1 % (11.5-14.5) Platelet Count 165 x10^3/uL (140-400) Neutrophils (%) (Auto) 74 % (31-73) Lymphocytes (%) (Auto) 13 % (24-48) Monocytes (%) (Auto) 12 % (0-9) Eosinophils (%) (Auto) 1 % (0-3) Basophils (%) (Auto) 1 % (0-3) Neutrophils # (Auto) 3.7 x10^3uL (1.8-7.7) Lymphocytes # (Auto) 0.6 x10^3/uL (1.0-4.8) Monocytes # (Auto) 0.6 x10^3/uL (0.0-1.1) Eosinophils # (Auto) 0.1 x10^3/uL (0.0-0.7) Basophils # (Auto) 0.0 x10^3/uL (0.0-0.2) Prothrombin Time 14.1 SEC (11.7-14.0) Prothromb Time International Ratio 1.2 (0.8-1.1) Activated Partial Thromboplast Time 44 SEC (24-38) Sodium Level 137 mmol/L (136-145) Potassium Level 3.8 mmol/L (3.5-5.1) Chloride Level 101 mmol/L (98-107) Carbon Dioxide Level 29 mmol/L (21-32) Anion Gap 7 (6-14) Blood Urea Nitrogen 20 mg/dL (8-26) Creatinine 0.9 mg/dL (0.7-1.3) Estimated GFR (Cockcroft-Gault) 96.4 Glucose Level 118 mg/dL (70-99) Calcium Level 9.0 mg/dL (8.5-10.1) Total Bilirubin 1.0 mg/dL (0.2-1.0) Direct Bilirubin 0.3 mg/dL (0.0-0.2) Aspartate Amino Transf (AST/SGOT) 21 U/L (15-37) Alanine Aminotransferase (ALT/SGPT) 22 U/L (16-63) Alkaline Phosphatase 57 U/L (46-116) Creatine Kinase 112 U/L (39-308) Creatine Kinase MB (Mass) < 0.5 ng/mL (0.0-3.6) Creatine Kinase MB Relative Index % (0-4) Troponin I Quantitative < 0.017 ng/mL (0.000-0.055) Total Protein 7.9 g/dL (6.4-8.2) Albumin 2.6 g/dL (3.4-5.0) Lipase 104 U/L (73-393) Urine Collection Type Unknown Urine Color Yellow Urine Clarity Clear Urine pH 5.5 Urine Specific [place] 1.025 Urine Protein Negative mg/dL (NEG-TRACE) Urine Glucose (UA) Negative mg/dL (NEG) Urine Ketones (Stick) Negative mg/dL (NEG) Urine Blood Small (NEG) Urine Nitrite Negative (NEG) Urine Bilirubin Negative (NEG) Urine Urobilinogen Dipstick 0.2 mg/dL (0.2 mg/dL) Urine Leukocyte Esterase Negative (NEG) Urine RBC 1-2 /HPF (0-2) Urine WBC 0 /HPF (0-4) Urine Squamous Epithelial Cells Few /LPF Urine Bacteria 0 /HPF (0-FEW) Urine Mucus Slight /LPF Assessment and Plan spoke with patient's DPOA, Obinna Mustafa ([phone]) regarding his care. after discussing the risks, benefits and alternatives, he thought surgical treatment is what would be best for Mr. Garcia nursing can have the sewage plant operator page me if Mr. Mustafa would like to talk further when he arrives at the hospital later MAHAD GEORGES II, MD July 31, 2016 16:01
--- NOTE | 2016-07-31 16:14 | ACF ---
Admission Forms Criteria MUSCULOSKELETAL DISEASE GRG Clinical Indications for Admission to Inpatient Care (Place 'X' for any and all applicable criteria): Hospital admission is needed for appropriate care of the patient because of 1 or more of the following: [X]I. Fracture, dislocation, or other musculoskeletal injury requiring inpatient care(medical) as indicated by 1 or more of the following(4)(5)(6)(7) [ ]a) Vertebral fracture requiring observation for instability or neurologic compromise (8) [ ]b) Compartment syndrome (proven or cannot be ruled out during observation level of care) (9) [ ]c) Limb-threatening injury [ ]d) Major injury requiring inpatient stabilization such as traction initiation or external fixation before internal fixation or closure of complex or open fracture [X]e) Major injury requiring inpatient treatment after emergency or observation level care (as appropriate) [ ]f) Severe pain requiring acute inpatient management [ ]g) Injury with suspicion of abuse or neglect (eg., child, dependent elderly) [ ]II. Newly diagnosed or suspected bone, joint, or orthopedic device infection (e.g., osteomyelitis, septic arthritis) needing 1 or more of the following(1)(2)(3) [ ]a) IV antibiotics that cannot be initiated in other than inpatient setting (e.g., patient too unstable or home infusion not available) [ ]b) Device removal or replacement [ ]c) Bone or soft tissue debridement [ ]d) Joint drainage (drain placement or repetitive aspirations) [ ]III. Severe rheumatologic disease (e.g., systemic lupus erythematosus, rheumatoid arthritis) with complications or comorbidities (Also use Optimal Recovery Care Criteria or General Recovery Criteria as appropriate on the basis of predominant condition), including 1 or more of the following( 10)(11)(12)(13) [ ]a) Severe infection (e.g., CART PUSHER infection, sepsis) (14) [ ]b) Respiratory complications, including 1 or more of the following : [ ]i) Pleural effusion with respiratory compromise [ ]ii) Pulmonary hypertension with congestive failure [ ]iii) Respiratory failure [ ]iv) Pulmonary hemorrhage (15) [ ]c) Hematologic disease, including 1 or more of the following: [ ]i) Coagulopathy with bleeding [ ]ii) Thrombosis with hypercoagulable state [ ]iii) Thrombotic thrombocytopenic purpura [ ]d) Cerebritis with seizures, psychosis, or other severe abnormalities [ ]e) Vertebral destruction with monitoring needed for cervical myelopathy& possible respiratory compromise [ ]f) Exacerbation that requires inpatient treatment (e.g., intravenous immunosuppression) (16) [ ]g) Acute renal failure [ ]h) Cerebritis with seizures, psychosis, Altered mental status, or other neurologic abnormalities [ ]i) Pericardial effusion with tamponade [ ]j) Vertebral destruction, with monitoring needed for cervical myelopathy and possible respiratory compromise [ ]IV. Severe vasculitis with complications or comorbidities (Also use Optimal Recovery Care Criteria General Recovery Criteria as appropriate on the basis of predominant condition), including 1 or more of the following(11)(12)(17)(18)(19)(20) [ ]a) Exacerbation that requires inpatient treatment (e.g., intravenous immunosuppression) (19)(21) [ ]b) Pulmonary hemorrhage (15) [ ]c) CART PUSHER vasculitis with seizures, psychosis, Altered mental status that is severe or persistent, or other severe abnormalities (22) [ ]d) Cerebral infarction [ ]e) Gastrointestinal ischemia [ ]f) Gangrene or threatened amputation [ ]g) Renal failure (16) [ ]h) Other significant complications of vasculitis ( eg., tissue or organ ischemia, organ dysfunction ) [ ]V. Severe myopathy as indicated by 1 or more of the following (28)(29) [ ]a) New onset of airway compromise or inability to swallow [ ]b) Respiratory deterioration with observation needed for impending respiratory failure [ ]c) Exacerbation that requires inpatient treatment (e.g., intravenous immunosuppression) [ ]. Severe crystal gout (arthropathy) indicated by 1 or more of the following (23)(24) [ ]a) Severe pain requiring acute inpatient management [ ]b) Exacerbation that requires inpatient treatment (e.g., intravenous treatment) [ ]VII.Rhabdomyolysis and 1 or more of the following (25)(26)(27) [ ]a) Acute renal failure [ ]b) Need for intravenous hydration after emergency or observation level care (as appropriate) [ ]c) Inability to maintain oral hydration [ ]d) Change in mental status [ ]e) Electrolyte abnormality that remains after emergency or observation level care (as appropriate) [ ]VIII Post amputation complication, as indicated by ANY ONE of the following [ ]a) Infection [ ]b) Dehiscence [ ]c) Myodesis failure [ ]IX. Severe pain requiring acute inpatient management due to musculoskeletal condition [ ]X. Musculoskeletal Disease and ALL of the following: [ ]a) Symptom or finding for which emergency and observation care have failed or are not considered appropriate (Use General Criteria: Observation Care as appropriate) [ ]b) Presence of ANY ONE of the following [ ]i) A General Admission Criteria [ ]ii) A Pediatric General Admission Criteria The original [facility] [employer] content created by [facility] [employer] has been revised. The portions of the content which have been revised are identified through the use of italic text or in bold, and [facility] has neither reviewed nor approved the modified material. All other unmodified content is copyright [facility]. Please see references footnoted in the original [facility] edition 2016 Admission Criteria Met?: Yes GEETA CHRISTOPHER July 31, 2016 16:13
--- NOTE | 2016-07-31 16:34 | PDOC1 ---
History and Physical Date of Admission Date of Admission DATE: 07/31/16 TIME: 16:29 Identification/Chief Complaint Chief Complaint fall 2 days ago in SNU Problems: Source Source: Caregiver, Chart review, Patient History of Present Illness History of Present Illness 89 y.o AA male, [facility] resident, sent by staff bec of left lower abd pain/left hip/ left groin pain, He did fall 2 days ago in SNU, no LOC or head trauma, pt minimally verbal. LAst here 1 month ago for : 1. FTT sx, likely dementia 2. Dehydration due to diarrhea. resolved 3. Hypokalemia.replaced 4. Acute kidney injury. resolved 5. Vasomotor nephropathy due to dehydration. 6. Hypertension. stable. 7. Urinary incontinence Winced in pain on left groin palpation, CT showed possible fx of the left hip - Ortho consulted. Pt then admitted, Pt looks comfortable, not moving, VS ok, COags ok, Labs ok Past Medical History CENTRAL NERVOUS SYSTEM: Dementia Renal/: Other (urinary incontinence) Past Surgical History Past Surgical History: No pertinent history Family History Family History: Family History Unknown Social History Smoke: No ALCOHOL: none Drugs: None Current Problem List Problem List Problems Medical Problems: (1) Hip fracture, left Status: Acute Problems: Current Medications Current Medications Current Medications Iohexol (Omnipaque 300 Mg/ml) 75 ml 1X ONCE IV Last administered on 07/31/16t 14:07; Start 07/31/16 at 14:00; Stop 07/31/16 at 14:01; Status DC Info (Do NOT chart on this entry -- for MONITORING) 1 each PRN DAILY PRN MC SEE COMMENTS; Start 07/31/16 at 14:00; Stop 08/02/16 at 13:59 Ondansetron HCl (Zofran) 4 mg PRN Q8HRS PRN IV NAUSEA/VOMITING; Start 07/31/16 at 15:45; Stop 08/01/16 at 15:44 Fentanyl Citrate (Fentanyl 2ml Vial) 25 mcg PRN Q1HR PRN IV PAIN; Start at 15:45; Stop 08/01/16 at 15:44 Cefazolin Sodium 1 gm/Sodium Chloride 50 ml @ 100 mls/hr 1X ONCE IV ; Start at 06:00; Stop 08/01/16 at 06:00; Status DC Cefazolin Sodium 50 ml @ 100 mls/hr 1X PREOP PRN IV PRIOR TO PROCEDURE; Start 08/01/16 at 06:00; Stop 08/01/16 at 18:00 Active Scripts Active Reported [dozolamide ] 2 Drop EACHEYE DAILY Travatan Z (Travoprost) 5 Ml Drops 1 Drop EACHEYE QHS Tamsulosin Hcl 0.4 Mg Cap.er.24h 1 Cap PO DAILY Donepezil Hcl 10 Mg Tablet 1 Tab PO DAILY Losartan Potassium 25 Mg Tablet 12.5 Mg PO DAILY Allergies Allergies: Coded Allergies: No Known Drug Allergies (Unverified , 07/18/13) ROS Review of System cant be obtained - dementia Physical Exam General: Alert, Oriented X3, Cooperative, No acute distress HEENT: Atraumatic, PERRLA Lungs: Clear to auscultation, Normal air movement Heart: S1S2, RRR, no thrills, no rubs, no gallops, no murmurs Cardiovascular: S1, S2 Breasts: Normal Abdomen: Normal bowel sounds, Soft, No tenderness, No hepatosplenomegaly, No masses Rectal Exam: not examined PELVIC: Other (left leg externally rotated) Extremities: No clubbing, No cyanosis, No edema, Normal pulses, No tenderness/ swelling Skin: No rashes, No breakdown, No significant lesion Neuro: Normal gait, Normal speech, Strength at 5/5 X4 ext, Normal tone, Sensation intact, Cranial nerves 3-12 NL, Reflexes 2+ Vitals Vitals Vital Signs Date Time Temp Pulse Resp B/P (MAP) Pulse Ox O2 Delivery O2 Flow Rate FiO2 07/31/16 11:07 99.5 86 18 165/78 (107) 100 Room Air 99.5 Labs Labs Laboratory Tests Test 07/31/16 13:15 07/31/16 14:43 White Blood Count 5.0 x10^3/uL (4.0-11.0) Red Blood Count 3.29 x10^6/uL (4.30-5.70) Hemoglobin 10.3 g/dL (13.0-17.5) Hematocrit 31.2 % (39.0-53.0) Mean Corpuscular Volume 95 fL (79-100) Mean Corpuscular Hemoglobin 31 pg (25-35) Mean Corpuscular Hemoglobin Concent 33 g/dL (31-37) Red Cell Distribution Width 14.1 % (11.5-14.5) Platelet Count 165 x10^3/uL (140-400) Neutrophils (%) (Auto) 74 % (31-73) Lymphocytes (%) (Auto) 13 % (24-48) Monocytes (%) (Auto) 12 % (0-9) Eosinophils (%) (Auto) 1 % (0-3) Basophils (%) (Auto) 1 % (0-3) Neutrophils # (Auto) 3.7 x10^3uL (1.8-7.7) Lymphocytes # (Auto) 0.6 x10^3/uL (1.0-4.8) Monocytes # (Auto) 0.6 x10^3/uL (0.0-1.1) Eosinophils # (Auto) 0.1 x10^3/uL (0.0-0.7) Basophils # (Auto) 0.0 x10^3/uL (0.0-0.2) Prothrombin Time 14.1 SEC (11.7-14.0) Prothromb Time International Ratio 1.2 (0.8-1.1) Activated Partial Thromboplast Time 44 SEC (24-38) Sodium Level 137 mmol/L (136-145) Potassium Level 3.8 mmol/L (3.5-5.1) Chloride Level 101 mmol/L (98-107) Carbon Dioxide Level 29 mmol/L (21-32) Anion Gap 7 (6-14) Blood Urea Nitrogen 20 mg/dL (8-26) Creatinine 0.9 mg/dL (0.7-1.3) Estimated GFR (Cockcroft-Gault) 96.4 Glucose Level 118 mg/dL (70-99) Calcium Level 9.0 mg/dL (8.5-10.1) Total Bilirubin 1.0 mg/dL (0.2-1.0) Direct Bilirubin 0.3 mg/dL (0.0-0.2) Aspartate Amino Transf (AST/SGOT) 21 U/L (15-37) Alanine Aminotransferase (ALT/SGPT) 22 U/L (16-63) Alkaline Phosphatase 57 U/L (46-116) Creatine Kinase 112 U/L (39-308) Creatine Kinase MB (Mass) < 0.5 ng/mL (0.0-3.6) Creatine Kinase MB Relative Index % (0-4) Troponin I Quantitative < 0.017 ng/mL (0.000-0.055) Total Protein 7.9 g/dL (6.4-8.2) Albumin 2.6 g/dL (3.4-5.0) Lipase 104 U/L (73-393) Urine Collection Type Unknown Urine Color Yellow Urine Clarity Clear Urine pH 5.5 Urine Specific [place] 1.025 Urine Protein Negative mg/dL (NEG-TRACE) Urine Glucose (UA) Negative mg/dL (NEG) Urine Ketones (Stick) Negative mg/dL (NEG) Urine Blood Small (NEG) Urine Nitrite Negative (NEG) Urine Bilirubin Negative (NEG) Urine Urobilinogen Dipstick 0.2 mg/dL (0.2 mg/dL) Urine Leukocyte Esterase Negative (NEG) Urine RBC 1-2 /HPF (0-2) Urine WBC 0 /HPF (0-4) Urine Squamous Epithelial Cells Few /LPF Urine Bacteria 0 /HPF (0-FEW) Urine Mucus Slight /LPF Laboratory Tests Test 07/31/16 13:15 07/31/16 14:43 White Blood Count 5.0 x10^3/uL (4.0-11.0) Red Blood Count 3.29 x10^6/uL (4.30-5.70) Hemoglobin 10.3 g/dL (13.0-17.5) Hematocrit 31.2 % (39.0-53.0) Mean Corpuscular Volume 95 fL (79-100) Mean Corpuscular Hemoglobin 31 pg (25-35) Mean Corpuscular Hemoglobin Concent 33 g/dL (31-37) Red Cell Distribution Width 14.1 % (11.5-14.5) Platelet Count 165 x10^3/uL (140-400) Neutrophils (%) (Auto) 74 % (31-73) Lymphocytes (%) (Auto) 13 % (24-48) Monocytes (%) (Auto) 12 % (0-9) Eosinophils (%) (Auto) 1 % (0-3) Basophils (%) (Auto) 1 % (0-3) Neutrophils # (Auto) 3.7 x10^3uL (1.8-7.7) Lymphocytes # (Auto) 0.6 x10^3/uL (1.0-4.8) Monocytes # (Auto) 0.6 x10^3/uL (0.0-1.1) Eosinophils # (Auto) 0.1 x10^3/uL (0.0-0.7) Basophils # (Auto) 0.0 x10^3/uL (0.0-0.2) Prothrombin Time 14.1 SEC (11.7-14.0) Prothromb Time International Ratio 1.2 (0.8-1.1) Activated Partial Thromboplast Time 44 SEC (24-38) Sodium Level 137 mmol/L (136-145) Potassium Level 3.8 mmol/L (3.5-5.1) Chloride Level 101 mmol/L (98-107) Carbon Dioxide Level 29 mmol/L (21-32) Anion Gap 7 (6-14) Blood Urea Nitrogen 20 mg/dL (8-26) Creatinine 0.9 mg/dL (0.7-1.3) Estimated GFR (Cockcroft-Gault) 96.4 Glucose Level 118 mg/dL (70-99) Calcium Level 9.0 mg/dL (8.5-10.1) Total Bilirubin 1.0 mg/dL (0.2-1.0) Direct Bilirubin 0.3 mg/dL (0.0-0.2) Aspartate Amino Transf (AST/SGOT) 21 U/L (15-37) Alanine Aminotransferase (ALT/SGPT) 22 U/L (16-63) Alkaline Phosphatase 57 U/L (46-116) Creatine Kinase 112 U/L (39-308) Creatine Kinase MB (Mass) < 0.5 ng/mL (0.0-3.6) Creatine Kinase MB Relative Index % (0-4) Troponin I Quantitative < 0.017 ng/mL (0.000-0.055) Total Protein 7.9 g/dL (6.4-8.2) Albumin 2.6 g/dL (3.4-5.0) Lipase 104 U/L (73-393) Urine Collection Type Unknown Urine Color Yellow Urine Clarity Clear Urine pH 5.5 Urine Specific [place] 1.025 Urine Protein Negative mg/dL (NEG-TRACE) Urine Glucose (UA) Negative mg/dL (NEG) Urine Ketones (Stick) Negative mg/dL (NEG) Urine Blood Small (NEG) Urine Nitrite Negative (NEG) Urine Bilirubin Negative (NEG) Urine Urobilinogen Dipstick 0.2 mg/dL (0.2 mg/dL) Urine Leukocyte Esterase Negative (NEG) Urine RBC 1-2 /HPF (0-2) Urine WBC 0 /HPF (0-4) Urine Squamous Epithelial Cells Few /LPF Urine Bacteria 0 /HPF (0-FEW) Urine Mucus Slight /LPF VTE Prophylaxis Ordered VTE Prophylaxis Devices: Yes VTE Pharmacological Prophylaxi: Yes Assessment/Plan Assessment/Plan 1. Possible left occult hip fx 2. FAll in SNU 3. 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 HTN, controlled 6. Encephalopathy - could be his baseline PLAn: Admit Ortho consult Ok for diet - weekend - and unsure if needs surgical tx Resume meds PT/OT DVt prophy Laurent pt and ER mD Hold blood thinners for now JERMAIN WHEELER MD July 31, 2016 16:34
--- NOTE | 2016-07-31 16:35 | EKG ---
[facility] [address] [place] [address] Test Date: 2016-07-31 Test Time: 13:06:06 Pat Name: VIRAL BROCK Department: Room: 424 Gender: M Auto Parker: : 1925 Requested By: STACY COPPOLA Order Number: [id number] Reading MD: Chavez Monteiro Measurements Intervals [place]alia Rate: 77 P: 59 SD: 156 QRS: -21 QRSD: 72 T: 35 QT: 380 QTc: 432 Interpretive Statements SINUS RHYTHM Electronically Signed On 08-06-2016 13:30:49 CDT by Chavez Monteiro
[2016-07-31 17:30] VITALS: BP 167/67
[2016-07-31 19:00] VITALS: BP 168/70
[2016-07-31] MEDS: fentaNYL PF VIAL 100 MCG/2 ML VIAL IV PRN (21:03)
[2016-07-31] MEDS: LATANOPROST 0.005% OPHTH SOLUTION 2.5ML BOTTLE. OU SCH (21:03)
[2016-07-31 23:00] VITALS: BP 132/72
[2016-08-01] VITALS (15 sets, daily range): BP systolic 100–139; BP diastolic 44–74
--- NOTE | 2016-08-01 02:55 | CONS ---
DATE OF CONSULTATION: 07/31/2016 REFERRING PROVIDER: Geovany Reyes MD CONSULTING PROVIDER: Jabier Georges MD REASON FOR CONSULTATION: Left hip fracture. CHIEF COMPLAINT: Unobtainable secondary to Alzheimer's dementia. HISTORY OF PRESENT ILLNESS: The patient is an 89-year-old -[place] male who was [facility]. Per their report, he had a fall a couple of days ago and has not been as mobile as he is normally. He has been grimacing in pain when they attempt to move him. No other information is available. The patient does not communicate any information. ALLERGIES: None. MEDICATIONS: Reviewed, please see MRAD. PAST MEDICAL HISTORY: Hypertension, renal failure, cataract extraction, BPH, recent encephalopathy, Alzheimer's, prostate surgery. SOCIAL HISTORY: He normally lives with family. He does not use any alcohol or tobacco. FAMILY HISTORY: Unobtainable. REVIEW OF SYSTEMS: Unobtainable secondary to patient's mental status. PHYSICAL EXAMINATION: GENERAL: The patient is alert. He does respond to some questions, but does not answer questions appropriately. He does not ask questions. He follows occasional simple commands. HEENT: Head normocephalic, atraumatic. Extraocular muscles are intact. CARDIOVASCULAR: Regular rate and rhythm. LUNGS: Respirations are unlabored. ABDOMEN: Soft, nondistended. EXTREMITIES: Examination of bilateral upper extremities reveals spontaneous movements and no gross deformity. Radial pulses 2+. Examination of bilateral lower extremities reveals his left lower extremity slightly shorter than his right. He does have chronic edema, skin changes present and mild edema in bilateral ankles. He does spontaneously wiggle his toes. Unable to assess for sensation. His dorsalis pedis was 1+ and symmetric. He does grimace and withdraw with any attempted flexion of his hip. Log rolling does not cause him much pain. LABORATORY DATA: Reviewed. Hemoglobin 10.3, INR 1.2. IMAGING: X-rays were interpreted by myself. Report is also reviewed. He has a displaced femoral neck fracture on the left side. Abdomen and pelvis CT report was reviewed. It was noted for increased gas and stool throughout the colon and the aforementioned left hip fracture. IMPRESSION: Closed left femoral neck fracture. PLAN: I did call and discuss this with the patient's power of auto clutch rebuilder listed on our contact information on the hospital's EMR and relayed the information to him. We had discussion of risks, benefits, alternatives to various treatment and the patient's durable power of auto clutch rebuilder tells me that the patient normally is able to walk around with the use of a cane and that he thinks he would want the hip fracture fixed. I did discuss that this would entail a hemiarthroplasty and answered the patient's power of auto clutch rebuilder's questions. We will plan on proceeding to surgery tomorrow. JABIER GEORGES MD DR: PIERRE/benny JOB#: [id number] / [id number] MARYAN
[2016-08-01] MEDS ORDERED: ALBUTEROL SULFATE 2.5 MG/3 ML NEBU. NEB PRN (03:45)
[2016-08-01 03:58] LABS: BASO % 0 % (0-3); EOS % 5 % (0-3); HEMATOCRIT 25.7 % (39.0-53.0); HEMOGLOBIN 8.9 g/dL (13.0-17.5); LYMPH # 0.7 x10^3/uL (1.0-4.8); LYMPH % 19 % (24-48); MEAN CORPUSCULAR HEMOGLOBIN 32 pg (25-35); MEAN CORPUSCULAR HGB CONC 35 g/dL (31-37); MEAN CORPUSCULAR VOLUME 93 fL (79-100); MONO % 13 % (0-9); NEUT % 62 % (31-73); PLATELET COUNT 110 x10^3/uL (140-400); RED BLOOD COUNT 2.78 x10^6/uL (4.30-5.70); RED CELL DISTRIBUTION WIDTH 13.9 % (11.5-14.5); WHITE BLOOD COUNT 3.9 x10^3/uL (4.0-11.0)
[2016-08-01 04:11] LABS: CALCIUM 8.3 mg/dL (8.5-10.1); CREATININE 0.9 mg/dL (0.7-1.3); GFR 96.4; POTASSIUM 3.3 mmol/L (3.5-5.1)
[2016-08-01] MEDS ORDERED: MORPHINE SULFATE 5 MG, KETOROLAC TROMETHAMINE 30 MG, ROPIVacaine 0.5% PF 60 ML, EPINEPH... INT ART ONE ×5 (06:00)
[2016-08-01] MEDS ORDERED: HYDROmorphone 2 MG/ML VIAL IV PRN (07:00)
[2016-08-01] MEDS ORDERED: PROCHLORPERAZINE 10 MG/2 ML VIAL. IV PRN (07:00)
[2016-08-01] MEDS ORDERED: IV RINGERS,LACTATED 1000ML 1,000 ML IV SCH (07:00)
[2016-08-01] MEDS ORDERED: LIDOCAINE 1% 1 ML SYRINGE. ID PRN (07:00)
[2016-08-01] MEDS ORDERED: fentaNYL PF VIAL 100 MCG/2 ML VIAL IV PRN (07:00)
[2016-08-01] MEDS ORDERED: ONDANSETRON PF 4 MG/2 ML VIAL. IV PRN (07:00)
[2016-08-01] MEDS ORDERED: MORPHINE SULFATE 2 MG/ML DISP.SYRIN. IV PRN (07:00)
[2016-08-01] MEDS ORDERED: ePHEDrine PF IN SALINE 50 MG/5 ML DISP.SYRIN IV ONE (08:22)
[2016-08-01] MEDS ORDERED: PHENYLEPHRINE in 0.9% NACL PF 1 MG/10 ML DISP.SYRIN. IV ONE ×2 (08:22→10:08)
[2016-08-01] MEDS ORDERED: ONDANSETRON PF 4 MG/2 ML VIAL. ONE (08:24)
[2016-08-01] MEDS ORDERED: PROPOFOL 20 ML IV ONE (08:24)
[2016-08-01] MEDS ORDERED: ROCURONIUM 50 MG/5 ML VIAL. ONE (08:25)
[2016-08-01] MEDS ORDERED: LIDOCAINE 2% PF Vial for OR 5 ML VIAL. ONE (08:25)
[2016-08-01] MEDS ORDERED: fentaNYL PF VIAL 100 MCG/2 ML VIAL ONE (08:25)
[2016-08-01] MEDS ORDERED: ceFAZolin 1GM IVPB FOR OMNI 1 GM/50 ML BAG IV ONE (08:46)
[2016-08-01] MEDS: TAMSULOSIN 0.4 MG CAP.ER.24H. PO SCH ×2 (09:00→11:56)
[2016-08-01] MEDS: FOLIC ACID 1 MG TABLET. PO SCH ×2 (09:00→11:56)
[2016-08-01] MEDS: MEMANTINE 5 MG TABLET. PO SCH ×2 (09:00→11:57)
[2016-08-01] MEDS: LOSARTAN POTASSIUM 25 MG TABLET. PO SCH (09:00)
[2016-08-01] MEDS ORDERED: GLYCOPYRROLATE 1 MG/5 ML VIAL. ONE (09:19)
[2016-08-01] MEDS ORDERED: NEOSTIGMINE 10 MG/10 ML VIAL. ONE (09:19)
[2016-08-01] MEDS ORDERED: NEOSTIGMINE METHYLSULFATE 5 MG/5 ML SYRINGE. ONE (09:20)
[2016-08-01] MEDS ORDERED: SEVOFLURANE 61 TO 120 MINUTES. IH ONE (09:33)
[2016-08-01] MEDS ORDERED: ESMOLOL 100 MG/10 ML VIAL. IV ONE (10:24)
--- NOTE | 2016-08-01 10:33 | PDOC ---
BRIEF OPERATIVE NOTE Date: August 01, 2016 Pre-Op Diagnosis L femoral neck fx Post-Op Diagnosis same Procedure Performed L hip alyson Surgeon Jarocho Welder Gas Rabia Anesthesiologist Shari Anesthesia Type: General, Local Blood Loss 100mL Complications none MAHAD GEORGES II, MD August 01, 2016 10:33
[2016-08-01] MEDS: fentaNYL PF VIAL 100 MCG/2 ML VIAL IV PRN ×3 (10:51→11:18)
[2016-08-01] MEDS: FERROUS SULFATE 325 MG TABLET. PO SCH ×3 (11:45→16:50)
[2016-08-01] MEDS: DONEPEZIL HCL 10 MG TABLET. PO SCH ×2 (11:45→11:56)
--- NOTE | 2016-08-01 12:11 | OP ---
DATE OF SURGERY: 08/01/2016 SURGEON: Jabier Georges MD FINANCIAL ADVISER: Neetu Camarillo. ANESTHESIA: General. PREOPERATIVE DIAGNOSIS: Closed left femoral neck fracture. POSTOPERATIVE DIAGNOSIS: Closed left femoral neck fracture. PROCEDURE PERFORMED: Left hip hemiarthroplasty. COMPONENTS INSERTED: 1. [employer] Synergy size 12 cemented stem with a 50 mm +0 head. 2. Accord 2.0 mm cable was also used. ESTIMATED BLOOD LOSS: 100 mL. COMPLICATIONS: Likely intraoperative nondisplaced calcar fracture. REASON FOR PROCEDURE: The patient is a very pleasant 89-year-old with advanced dementia who had a fall a couple days ago while at an outside institution and was transferred here for pain. He was found to have the above injury. I had a discussion with his durable power of systems software developer, who thought proceeding with surgery would be in his best interest. DESCRIPTION OF PROCEDURE: The patient was greeted in the preoperative area by myself. The correct extremity was marked and verified. He was taken back to the operative suite and antibiotics were started en route. Once in the OR, he was transferred gently supine to the OR table after successful induction of general anesthesia. We then laid him in the lateral decubitus position with the left side up and secured him to the bed with our hip positioning devices. Axillary roll was used. All down pressure points were padded. We then proceeded to prep and drape left lower extremity and hip in our usual sterile fashion including an Ioban sandwich and then conducted our standard preoperative timeout. I then palpated and marked the surface anatomy and mary kate a line for my standard posterolateral skin incision and incised the skin with scalpel. I dissected subcutaneous tissue with electrocautery and cauterized bleeders as they were encountered. I identified the fascia and used a Soriano to sweep some of the adherent subcutaneous tissue aside for later identification and repair. I positioned a Mccullough stand under his knee, which was padded. Then I incised the fascia in line with the skin incision. I placed my Charnley retractor and excised some bursal tissue. I noted a large amount of fracture hematoma and hemorrhagic appearing bursal tissue. His quadratus and piriformis had been traumatically ruptured. I identified the capsule and incised this in a Z-plasty type incision and tagged superior and inferior portions of this for later identification and repair. After this, I internally rotated his leg and flexed his hip. While my press assistant held his leg in this position, I placed Hohmann retractors around his neck and made a neck cut 1 cm proximal to the lesser trochanter and delivered loose bony pieces from the operative field. I then used a Ricardo and a hip skid device to remove his femoral head, which was then measured. I then irrigated out the acetabulum, removed all loose debris and then trialed the 50, which gave a near perfect fit. I then removed the trial ball and delivered the proximal femur in the operative field with the assistance of manipulation of the leg and a proximal femoral elevator. I used my emilioie cutting osteotome to get entry into the proximal femur followed by the canal finding reamer and reamed up to a 14. I then began broaching at a 10 and broached up to a 13, which gave a good fit and fill. I then trialed various head and neck sizes and during one reduction maneuver of the hip I noted that his broach sunk down. Therefore, I removed the broach and all the trial components and placed a cerclage cable which was tensioned and tightened around his proximal femur. I then broached with a 14 stem and then I trialed and went with the 50 +0 which I felt gave good scientologist of leg length and stability. I again noted that the broach slipped a little and therefore, I elected to cement the stem. The canal was thoroughly irrigated out. Distal restrictor was placed. We then cemented in place, a size 12 Synergy stem, taking care to remove the excess cement. After the cement hardened, I washed out the acetabulum and inspected to make sure there was no loose debris, which was not. We then trialed a +0 and a 50 ball which I felt was appropriate. We therefore removed the trial components and washed and dried the Ramos taper region and gently impacted the head and neck and taper into position. We then reduced the hip after irrigating everything out again. I then closed his capsule with simple interrupted #2 Ethibond. I then injected my periarticular mixture into the fortunato-incisional areas. After this, I irrigated out the operative field again and closed the fascia with running #2 Quill. Inverted interrupted 2-0 was used in a multilayered fashion for subcutaneous tissue and running 4-0 Monocryl in subcuticular fashion was used for skin. Prior to completion of wound closure, all counts were reported correct x 2. No complications. The patient tolerated surgery well. At the conclusion of surgery, he was awakened and laid gently supine and transferred gently supine to the hospital bed. Postop plan is to admit him back to the care of the hospitalist. He will receive Coumadin and antibiotic prophylaxis postoperatively. We will get him started on some rehabilitation as much as he is able to participate with anyway. JABIER GEORGES MD DR: PIERRE/benny JOB#: [id number] / [id number] MARYAN
[2016-08-01] MEDS: DORZOLAMIDE 2% OPHTH SOLUTION 10ML BOTTLE. OU SCH (12:18)
--- NOTE | 2016-08-01 12:58 | PDOC ---
PROGRESS NOTES Chief Complaint Chief Complaint cc: fall A/P 1. Left hip fracture, 2. Fall at [facility] 3. 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 HTN, controlled Plan s/p hemiarthroplasty DVT prophylaxis pain control appears to be at his baseline continue current care replace potassium labs reviewed. Vitals Vitals Vital Signs Date Time Temp Pulse Resp B/P (MAP) Pulse Ox O2 Delivery O2 Flow Rate FiO2 08/01/16 11:21 100 Nasal Cannula 2.0 08/01/16 11:18 12 08/01/16 11:05 98.5 105 118/60 98.5 Physical Exam General: Alert, Cooperative, No acute distress Heart: Normal S1, Normal S2 Lungs: Clear Abdomen: Normal bowel sounds, Soft, No tenderness, No hepatosplenomegaly, No masses Extremities: No clubbing, No cyanosis, No edema, Normal pulses, No tenderness/ swelling Skin: No rashes, No breakdown, No significant lesion Labs LABS Laboratory Tests Test 07/31/16 13:15 07/31/16 14:43 08/01/16 03:10 White Blood Count 5.0 x10^3/uL (4.0-11.0) 3.9 x10^3/uL (4.0-11.0) Red Blood Count 3.29 x10^6/uL (4.30-5.70) 2.78 x10^6/uL (4.30-5.70) Hemoglobin 10.3 g/dL (13.0-17.5) 8.9 g/dL (13.0-17.5) Hematocrit 31.2 % (39.0-53.0) 25.7 % (39.0-53.0) Mean Corpuscular Volume 95 fL (79-100) 93 fL (79-100) Mean Corpuscular Hemoglobin 31 pg (25-35) 32 pg (25-35) Mean Corpuscular Hemoglobin Concent 33 g/dL (31-37) 35 g/dL (31-37) Red Cell Distribution Width 14.1 % (11.5-14.5) 13.9 % (11.5-14.5) Platelet Count 165 x10^3/uL (140-400) 110 x10^3/uL (140-400) Neutrophils (%) (Auto) 74 % (31-73) 62 % (31-73) Lymphocytes (%) (Auto) 13 % (24-48) 19 % (24-48) Monocytes (%) (Auto) 12 % (0-9) 13 % (0-9) Eosinophils (%) (Auto) 1 % (0-3) 5 % (0-3) Basophils (%) (Auto) 1 % (0-3) 0 % (0-3) Neutrophils # (Auto) 3.7 x10^3uL (1.8-7.7) 2.4 x10^3uL (1.8-7.7) Lymphocytes # (Auto) 0.6 x10^3/uL (1.0-4.8) 0.7 x10^3/uL (1.0-4.8) Monocytes # (Auto) 0.6 x10^3/uL (0.0-1.1) 0.5 x10^3/uL (0.0-1.1) Eosinophils # (Auto) 0.1 x10^3/uL (0.0-0.7) 0.2 x10^3/uL (0.0-0.7) Basophils # (Auto) 0.0 x10^3/uL (0.0-0.2) 0.0 x10^3/uL (0.0-0.2) Prothrombin Time 14.1 SEC (11.7-14.0) Prothromb Time International Ratio 1.2 (0.8-1.1) Activated Partial Thromboplast Time 44 SEC (24-38) Sodium Level 137 mmol/L (136-145) 137 mmol/L (136-145) Potassium Level 3.8 mmol/L (3.5-5.1) 3.3 mmol/L (3.5-5.1) Chloride Level 101 mmol/L (98-107) 103 mmol/L (98-107) Carbon Dioxide Level 29 mmol/L (21-32) 27 mmol/L (21-32) Anion Gap 7 (6-14) 7 (6-14) Blood Urea Nitrogen 20 mg/dL (8-26) 17 mg/dL (8-26) Creatinine 0.9 mg/dL (0.7-1.3) 0.9 mg/dL (0.7-1.3) Estimated GFR (Cockcroft-Gault) 96.4 96.4 Glucose Level 118 mg/dL (70-99) 98 mg/dL (70-99) Calcium Level 9.0 mg/dL (8.5-10.1) 8.3 mg/dL (8.5-10.1) Total Bilirubin 1.0 mg/dL (0.2-1.0) Direct Bilirubin 0.3 mg/dL (0.0-0.2) Aspartate Amino Transf (AST/SGOT) 21 U/L (15-37) Alanine Aminotransferase (ALT/SGPT) 22 U/L (16-63) Alkaline Phosphatase 57 U/L (46-116) Creatine Kinase 112 U/L (39-308) Creatine Kinase MB (Mass) < 0.5 ng/mL (0.0-3.6) Creatine Kinase MB Relative Index % (0-4) Troponin I Quantitative < 0.017 ng/mL (0.000-0.055) Total Protein 7.9 g/dL (6.4-8.2) Albumin 2.6 g/dL (3.4-5.0) Lipase 104 U/L (73-393) 25-Hydroxy Vitamin D Total 20.1 ng/mL (30.0-100.0) Urine Collection Type Unknown Urine Color Yellow Urine Clarity Clear Urine pH 5.5 Urine Specific [place] 1.025 Urine Protein Negative mg/dL (NEG-TRACE) Urine Glucose (UA) Negative mg/dL (NEG) Urine Ketones (Stick) Negative mg/dL (NEG) Urine Blood Small (NEG) Urine Nitrite Negative (NEG) Urine Bilirubin Negative (NEG) Urine Urobilinogen Dipstick 0.2 mg/dL (0.2 mg/dL) Urine Leukocyte Esterase Negative (NEG) Urine RBC 1-2 /HPF (0-2) Urine WBC 0 /HPF (0-4) Urine Squamous Epithelial Cells Few /LPF Urine Bacteria 0 /HPF (0-FEW) Urine Mucus Slight /LPF Assessment and Plan Assessmemt and Plan Problems Medical Problems: (1) Hip fracture, left Status: Acute Problems: Comment Review of Relevant I have reviewed the following items edith (where applicable) has been applied. Labs Laboratory Tests Test 07/31/16 13:15 07/31/16 14:43 08/01/16 03:10 White Blood Count 5.0 x10^3/uL (4.0-11.0) 3.9 x10^3/uL (4.0-11.0) Red Blood Count 3.29 x10^6/uL (4.30-5.70) 2.78 x10^6/uL (4.30-5.70) Hemoglobin 10.3 g/dL (13.0-17.5) 8.9 g/dL (13.0-17.5) Hematocrit 31.2 % (39.0-53.0) 25.7 % (39.0-53.0) Mean Corpuscular Volume 95 fL (79-100) 93 fL (79-100) Mean Corpuscular Hemoglobin 31 pg (25-35) 32 pg (25-35) Mean Corpuscular Hemoglobin Concent 33 g/dL (31-37) 35 g/dL (31-37) Red Cell Distribution Width 14.1 % (11.5-14.5) 13.9 % (11.5-14.5) Platelet Count 165 x10^3/uL (140-400) 110 x10^3/uL (140-400) Neutrophils (%) (Auto) 74 % (31-73) 62 % (31-73) Lymphocytes (%) (Auto) 13 % (24-48) 19 % (24-48) Monocytes (%) (Auto) 12 % (0-9) 13 % (0-9) Eosinophils (%) (Auto) 1 % (0-3) 5 % (0-3) Basophils (%) (Auto) 1 % (0-3) 0 % (0-3) Neutrophils # (Auto) 3.7 x10^3uL (1.8-7.7) 2.4 x10^3uL (1.8-7.7) Lymphocytes # (Auto) 0.6 x10^3/uL (1.0-4.8) 0.7 x10^3/uL (1.0-4.8) Monocytes # (Auto) 0.6 x10^3/uL (0.0-1.1) 0.5 x10^3/uL (0.0-1.1) Eosinophils # (Auto) 0.1 x10^3/uL (0.0-0.7) 0.2 x10^3/uL (0.0-0.7) Basophils # (Auto) 0.0 x10^3/uL (0.0-0.2) 0.0 x10^3/uL (0.0-0.2) Prothrombin Time 14.1 SEC (11.7-14.0) Prothromb Time International Ratio 1.2 (0.8-1.1) Activated Partial Thromboplast Time 44 SEC (24-38) Sodium Level 137 mmol/L (136-145) 137 mmol/L (136-145) Potassium Level 3.8 mmol/L (3.5-5.1) 3.3 mmol/L (3.5-5.1) Chloride Level 101 mmol/L (98-107) 103 mmol/L (98-107) Carbon Dioxide Level 29 mmol/L (21-32) 27 mmol/L (21-32) Anion Gap 7 (6-14) 7 (6-14) Blood Urea Nitrogen 20 mg/dL (8-26) 17 mg/dL (8-26) Creatinine 0.9 mg/dL (0.7-1.3) 0.9 mg/dL (0.7-1.3) Estimated GFR (Cockcroft-Gault) 96.4 96.4 Glucose Level 118 mg/dL (70-99) 98 mg/dL (70-99) Calcium Level 9.0 mg/dL (8.5-10.1) 8.3 mg/dL (8.5-10.1) Total Bilirubin 1.0 mg/dL (0.2-1.0) Direct Bilirubin 0.3 mg/dL (0.0-0.2) Aspartate Amino Transf (AST/SGOT) 21 U/L (15-37) Alanine Aminotransferase (ALT/SGPT) 22 U/L (16-63) Alkaline Phosphatase 57 U/L (46-116) Creatine Kinase 112 U/L (39-308) Creatine Kinase MB (Mass) < 0.5 ng/mL (0.0-3.6) Creatine Kinase MB Relative Index % (0-4) Troponin I Quantitative < 0.017 ng/mL (0.000-0.055) Total Protein 7.9 g/dL (6.4-8.2) Albumin 2.6 g/dL (3.4-5.0) Lipase 104 U/L (73-393) 25-Hydroxy Vitamin D Total 20.1 ng/mL (30.0-100.0) Urine Collection Type Unknown Urine Color Yellow Urine Clarity Clear Urine pH 5.5 Urine Specific [place] 1.025 Urine Protein Negative mg/dL (NEG-TRACE) Urine Glucose (UA) Negative mg/dL (NEG) Urine Ketones (Stick) Negative mg/dL (NEG) Urine Blood Small (NEG) Urine Nitrite Negative (NEG) Urine Bilirubin Negative (NEG) Urine Urobilinogen Dipstick 0.2 mg/dL (0.2 mg/dL) Urine Leukocyte Esterase Negative (NEG) Urine RBC 1-2 /HPF (0-2) Urine WBC 0 /HPF (0-4) Urine Squamous Epithelial Cells Few /LPF Urine Bacteria 0 /HPF (0-FEW) Urine Mucus Slight /LPF Laboratory Tests Test 07/31/16 13:15 07/31/16 14:43 08/01/16 03:10 White Blood Count 5.0 x10^3/uL (4.0-11.0) 3.9 x10^3/uL (4.0-11.0) Red Blood Count 3.29 x10^6/uL (4.30-5.70) 2.78 x10^6/uL (4.30-5.70) Hemoglobin 10.3 g/dL (13.0-17.5) 8.9 g/dL (13.0-17.5) Hematocrit 31.2 % (39.0-53.0) 25.7 % (39.0-53.0) Mean Corpuscular Volume 95 fL (79-100) 93 fL (79-100) Mean Corpuscular Hemoglobin 31 pg (25-35) 32 pg (25-35) Mean Corpuscular Hemoglobin Concent 33 g/dL (31-37) 35 g/dL (31-37) Red Cell Distribution Width 14.1 % (11.5-14.5) 13.9 % (11.5-14.5) Platelet Count 165 x10^3/uL (140-400) 110 x10^3/uL (140-400) Neutrophils (%) (Auto) 74 % (31-73) 62 % (31-73) Lymphocytes (%) (Auto) 13 % (24-48) 19 % (24-48) Monocytes (%) (Auto) 12 % (0-9) 13 % (0-9) Eosinophils (%) (Auto) 1 % (0-3) 5 % (0-3) Basophils (%) (Auto) 1 % (0-3) 0 % (0-3) Neutrophils # (Auto) 3.7 x10^3uL (1.8-7.7) 2.4 x10^3uL (1.8-7.7) Lymphocytes # (Auto) 0.6 x10^3/uL (1.0-4.8) 0.7 x10^3/uL (1.0-4.8) Monocytes # (Auto) 0.6 x10^3/uL (0.0-1.1) 0.5 x10^3/uL (0.0-1.1) Eosinophils # (Auto) 0.1 x10^3/uL (0.0-0.7) 0.2 x10^3/uL (0.0-0.7) Basophils # (Auto) 0.0 x10^3/uL (0.0-0.2) 0.0 x10^3/uL (0.0-0.2) Prothrombin Time 14.1 SEC (11.7-14.0) Prothromb Time International Ratio 1.2 (0.8-1.1) Activated Partial Thromboplast Time 44 SEC (24-38) Sodium Level 137 mmol/L (136-145) 137 mmol/L (136-145) Potassium Level 3.8 mmol/L (3.5-5.1) 3.3 mmol/L (3.5-5.1) Chloride Level 101 mmol/L (98-107) 103 mmol/L (98-107) Carbon Dioxide Level 29 mmol/L (21-32) 27 mmol/L (21-32) Anion Gap 7 (6-14) 7 (6-14) Blood Urea Nitrogen 20 mg/dL (8-26) 17 mg/dL (8-26) Creatinine 0.9 mg/dL (0.7-1.3) 0.9 mg/dL (0.7-1.3) Estimated GFR (Cockcroft-Gault) 96.4 96.4 Glucose Level 118 mg/dL (70-99) 98 mg/dL (70-99) Calcium Level 9.0 mg/dL (8.5-10.1) 8.3 mg/dL (8.5-10.1) Total Bilirubin 1.0 mg/dL (0.2-1.0) Direct Bilirubin 0.3 mg/dL (0.0-0.2) Aspartate Amino Transf (AST/SGOT) 21 U/L (15-37) Alanine Aminotransferase (ALT/SGPT) 22 U/L (16-63) Alkaline Phosphatase 57 U/L (46-116) Creatine Kinase 112 U/L (39-308) Creatine Kinase MB (Mass) < 0.5 ng/mL (0.0-3.6) Creatine Kinase MB Relative Index % (0-4) Troponin I Quantitative < 0.017 ng/mL (0.000-0.055) Total Protein 7.9 g/dL (6.4-8.2) Albumin 2.6 g/dL (3.4-5.0) Lipase 104 U/L (73-393) 25-Hydroxy Vitamin D Total 20.1 ng/mL (30.0-100.0) Urine Collection Type Unknown Urine Color Yellow Urine Clarity Clear Urine pH 5.5 Urine Specific [place] 1.025 Urine Protein Negative mg/dL (NEG-TRACE) Urine Glucose (UA) Negative mg/dL (NEG) Urine Ketones (Stick) Negative mg/dL (NEG) Urine Blood Small (NEG) Urine Nitrite Negative (NEG) Urine Bilirubin Negative (NEG) Urine Urobilinogen Dipstick 0.2 mg/dL (0.2 mg/dL) Urine Leukocyte Esterase Negative (NEG) Urine RBC 1-2 /HPF (0-2) Urine WBC 0 /HPF (0-4) Urine Squamous Epithelial Cells Few /LPF Urine Bacteria 0 /HPF (0-FEW) Urine Mucus Slight /LPF Medications Current Medications Iohexol (Omnipaque 300 Mg/ml) 75 ml 1X ONCE IV Last administered on 07/31/16t 14:07; Start 07/31/16 at 14:00; Stop 07/31/16 at 14:01; Status DC Info (Do NOT chart on this entry -- for MONITORING) 1 each PRN DAILY PRN MC SEE COMMENTS; Start 07/31/16 at 14:00; Stop 08/02/16 at 13:59 Ondansetron HCl (Zofran) 4 mg PRN Q8HRS PRN IV NAUSEA/VOMITING; Start 07/31/16 at 15:45; Stop 07/31/16 at 16:36; Status DC Fentanyl Citrate (Fentanyl 2ml Vial) 25 mcg PRN Q1HR PRN IV PAIN Last administered on 08/01/16 10:51; Start 07/31/16 at 15:45; Stop 08/01/16 at 15:44 Cefazolin Sodium 1 gm/Sodium Chloride 50 ml @ 100 mls/hr 1X ONCE IV ; Start at 06:00; Stop 08/01/16 at 06:00; Status DC Cefazolin Sodium 50 ml @ 100 mls/hr 1X PREOP PRN IV PRIOR TO PROCEDURE; Start 08/01/16 at 06:00; Stop 08/01/16 at 18:00 Ondansetron HCl (Zofran) 4 mg PRN Q6HRS PRN IV NAUSEA/VOMITING; Start 07/31/16 at 16:34; Stop 08/01/16 at 16:33 Donepezil HCl (Aricept) 10 mg DAILY PO Last administered on 08/01/16 11:56; Start 08/01/16 at 09:00 Losartan Potassium (Cozaar) 12.5 mg DAILY PO ; Start 08/01/16 at 09:00 Tamsulosin HCl (Flomax) 0.4 mg DAILY PO Last administered on 08/01/16 11:56; Start 08/01/16 at 09:00 Latanoprost (Xalatan) 1 drop QHS OU Last administered on 07/31/16 21:03; Start 07/31/16 at 21:00 Dorzolamide HCl (Trusopt) 1 drop DAILY OU Last administered on 08/01/16 12:18 ; Start 08/01/16 at 09:00 Ondansetron HCl (Zofran) 4 mg PRN Q6HRS PRN IV NAUSEA/VOMITING; Start 08/01/16 at 07:00; Stop 08/02/16 at 06:59 Fentanyl Citrate (Fentanyl 2ml Vial) 25 mcg PRN Q5MIN PRN IV MILD PAIN Last administered on 08/01/16 11:18; Start 08/01/16 at 07:00; Stop 08/02/16 at 06:59 Fentanyl Citrate (Fentanyl 2ml Vial) 50 mcg PRN Q5MIN PRN IV MODERATE PAIN; Start 08/01/16 at 07:00; Stop 08/02/16 at 06:59 Morphine Sulfate 1 mg PRN Q10MIN PRN IV SEVERE PAIN; Start 08/01/16 at 07:00; Stop 08/02/16 at 06:59 Ringer's Solution 1,000 ml @ 0 mls/hr Q0M IV ; Start 08/01/16 at 07:00; Stop at 18:59 Lidocaine HCl 2 ml PRN 1X PRN ID PRIOR TO IV START; Start 08/01/16 at 07:00; Stop 08/02/16 at 06:59 Hydromorphone HCl (Dilaudid) 0.5 mg PRN Q10MIN PRN IV SEV PAIN, Second choice; Start 08/01/16 at 07:00; Stop 08/02/16 at 06:59 Prochlorperazine Edisylate (Compazine) 5 mg PACU PRN PRN IV NAUSEA, MRX1; Start 08/01/16 at 07:00; Stop 08/02/16 at 06:59 Morphine Sulfate 5 mg/Ketorolac Tromethamine 30 mg/Ropivacaine 60 ml/ Epinephrine HCl 0.5 mg/Sodium Chloride 100 ml @ 100 mls/hr 1X PERIOP ONCE INT ART Last administered on 08/01/16 09:12; Start 08/01/16 at 06:00; Stop at 07:00; Status DC Folic Acid (Folic Acid) 1 mg DAILY PO Last administered on 08/01/16 11:56; Start 08/01/16 at 09:00 Albuterol Sulfate (Ventolin Neb Soln) 2.5 mg PRN Q4HRS PRN NEB SHORTNESS OF BREATH; Start 08/01/16 at 03:45 Ferrous Sulfate (Feosol) 325 mg BIDWMEALS PO Last administered on 08/01/16 11: 56; Start 08/01/16 at 08:00 Memantine (Namenda) 5 mg DAILY PO Last administered on 08/01/16 11:57; Start 08/01/16 at 09:00 Phenylephrine HCl 1 mg STK-MED ONCE IV ; Start 08/01/16 at 08:22; Stop 08/01/16 at 08:23; Status DC Ephedrine Sulfate 50 mg STK-MED ONCE IV ; Start 08/01/16 at 08:22; Stop at 08:23; Status DC Ondansetron HCl (Zofran) 4 mg STK-MED ONCE .ROUTE ; Start 08/01/16 at 08:24; Stop 08/01/16 at 08:25; Status DC Propofol 20 ml @ As Directed STK-MED ONCE IV ; Start 08/01/16 at 08:24; Stop at 08:25; Status DC Lidocaine HCl (Lidocaine Pf 2% Vial) 5 ml STK-MED ONCE .ROUTE ; Start 08/01/16 at 08:25; Stop 08/01/16 at 08:26; Status DC Rocuronium [place] (Zemuron) 50 mg STK-MED ONCE .ROUTE ; Start 08/01/16 at 08:25 ; Stop 08/01/16 at 08:26; Status DC Fentanyl Citrate (Fentanyl 2ml Vial) 100 mcg STK-MED ONCE .ROUTE ; Start at 08:25; Stop 08/01/16 at 08:26; Status DC Neostigmine Methylsulfate (Bloxiverz) 10 mg STK-MED ONCE .ROUTE ; Start at 09:19; Stop 08/01/16 at 09:20; Status DC Glycopyrrolate (Robinul) 1 mg STK-MED ONCE .ROUTE ; Start 08/01/16 at 09:19; Stop 08/01/16 at 09:20; Status DC Neostigmine Methylsulfate 5 mg STK-MED ONCE .ROUTE ; Start 08/01/16 at 09:20; Stop 08/01/16 at 09:21; Status DC Sevoflurane (Ultane) 60 ml STK-MED ONCE IH ; Start 08/01/16 at 09:33; Stop 08/01 at 09:34; Status DC Phenylephrine HCl 1 mg STK-MED ONCE IV ; Start 08/01/16 at 10:08; Stop 08/01/16 at 10:09; Status DC Esmolol HCl (Brevibloc) 100 mg STK-MED ONCE IV ; Start 08/01/16 at 10:24; Stop 08/01/16 at 10:25; Status DC Warfarin Sodium (Coumadin Per Pharmacy) 1 each PRN DAILY PRN MC SEE COMMENTS; Start 08/01/16 at 10:30 Warfarin Sodium (Coumadin) 5 mg 1X ONCE PO ; Start 08/01/16 at 17:00; Stop at 17:01 Cefazolin Sodium 1 gm/Sodium Chloride 50 ml @ 100 mls/hr Q6H IV ; Start at 15:00; Stop 08/02/16 at 03:29 Active Scripts Active Reported [dozolamide ] 2 Drop EACHEYE DAILY Travatan Z (Travoprost) 5 Ml Drops 1 Drop EACHEYE QHS Tamsulosin Hcl 0.4 Mg Cap.er.24h 1 Cap PO DAILY Donepezil Hcl 10 Mg Tablet 1 Tab PO DAILY Losartan Potassium 25 Mg Tablet 12.5 Mg PO DAILY Vitals/I & O Vital Sign - Last 24 Hours 07/31/16 07/31/16 07/31/16 07/31/16 13:38 17:07 17:30 17:30 Temp 99.0 99.0 99.0 99.0 Pulse 78 87 78 78 Resp 18 20 20 B/P (MAP) 172/100 (124) 149/69 (95) 167/67 (100) 167/67 (100) Pulse Ox 99 97 97 97 O2 Delivery Room Air Room Air Room Air Room Air 07/31/16 07/31/16 07/31/16 07/31/16 19:00 20:01 20:20 21:03 Temp 98.5 98.5 Pulse 62 Resp 20 B/P (MAP) 168/70 (102) Pulse Ox 96 96 O2 Delivery Room Air Room Air Room Air Room Air 07/31/16 08/01/16 08/01/16 08/01/16 23:00 03:00 07:00 08:00 Temp 98.5 99.3 98.1 98.5 99.3 98.1 Pulse 63 100 92 Resp 20 18 20 B/P (MAP) 132/72 (92) 122/63 (82) 138/68 (91) Pulse Ox 96 96 99 O2 Delivery Room Air Room Air Room Air Room Air 08/01/16 08/01/16 08/01/16/20/17 09:00 10:35 10:45 10:50 Temp 98.9 98.9 Pulse 92 126 108 Resp 12 12 B/P (MAP) 118/53 113/56 119/58 Pulse Ox 99 98 O2 Delivery Simple Mask Mask Room Air O2 Flow Rate 8 8 08/01/16 08/01/16 08/01/16 08/01/16 10:51 11:00 11:05 11:05 Temp 98.5 98.5 Pulse 105 Resp 16 12 12 B/P (MAP) 118/60 Pulse Ox 100 100 O2 Delivery Simple Mask Nasal Cannula Nasal Cannula O2 Flow Rate 8.0 2.0 2 08/01/16 08/01/16 08/01/16 08/01/16 11:09 11:18 11:21 11:21 Resp 12 Pulse Ox 100 100 100 O2 Delivery Nasal Cannula Nasal Cannula Nasal Cannula Nasal Cannula O2 Flow Rate 2 2.0 2.0 2.0 Intake and Output 07/31/16 07/31/16 08/01/16 15:00 23:00 07:00 Intake Total 150 ml Output Total 300 ml Balance -150 ml MICHAEL YOUSSEF MD August 01, 2016 12:58
[2016-08-01] MEDS ORDERED: POTASSIUM CHLORIDE 20 MEQ TABLET.ER. PO ONE (13:00)
[2016-08-01] MEDS ORDERED: WARFARIN 5 MG TABLET. PO ONE (17:00)
[2016-08-01] MEDS: LATANOPROST 0.005% OPHTH SOLUTION 2.5ML BOTTLE. OU SCH (20:49)
[2016-08-01] MEDS: IV NORMAL SALINE 1000ML BAG 1,000 ML IV SCH ×2 (23:30→23:37)
[2016-08-01] MEDS: ACETAMINOPHEN 325 MG TABLET. PO PRN (23:36)
[2016-08-02 03:00] VITALS: BP 135/53
[2016-08-02 04:22] LABS: INR 1.3 (0.8-1.1); PROTHROMBIN TIME PATIENT 15.8 SEC (11.7-14.0)
[2016-08-02] MEDS: ACETAMINOPHEN 325 MG TABLET. PO PRN ×2 (06:05→16:41)
[2016-08-02 07:00] VITALS: BP 120/66
[2016-08-02] MEDS: DONEPEZIL HCL 10 MG TABLET. PO SCH (09:20)
[2016-08-02] MEDS: FERROUS SULFATE 325 MG TABLET. PO SCH ×2 (09:20→16:41)
[2016-08-02] MEDS: TAMSULOSIN 0.4 MG CAP.ER.24H. PO SCH (09:20)
[2016-08-02] MEDS: MEMANTINE 5 MG TABLET. PO SCH (09:21)
[2016-08-02] MEDS: FOLIC ACID 1 MG TABLET. PO SCH (09:21)
[2016-08-02] MEDS: LOSARTAN POTASSIUM 25 MG TABLET. PO SCH (09:21)
[2016-08-02] MEDS: DORZOLAMIDE 2% OPHTH SOLUTION 10ML BOTTLE. OU SCH (09:30)
[2016-08-02 11:00] VITALS: BP 113/58
--- NOTE | 2016-08-02 11:54 | PDOC ---
ORTHO PROGRESS NOTES Subjective Alert this morning. Denies any pain, although with his underlying mental status , difficult to know for sure Vitals Vital Signs Date Time Temp Pulse Resp B/P (MAP) Pulse Ox O2 Delivery O2 Flow Rate FiO2 08/02/16 11:00 98.3 95 20 113/58 (76) 97 Room Air 98.3 08/01/16 11:21 2.0 Labs Laboratory Tests Test 07/31/16 13:15 07/31/16 14:43 07/31/16 19:45 08/01/16 03:10 White Blood Count 5.0 x10^3/uL (4.0-11.0) 3.9 x10^3/uL (4.0-11.0) Red Blood Count 3.29 x10^6/uL (4.30-5.70) 2.78 x10^6/uL (4.30-5.70) Hemoglobin 10.3 g/dL (13.0-17.5) 8.9 g/dL (13.0-17.5) Hematocrit 31.2 % (39.0-53.0) 25.7 % (39.0-53.0) Mean Corpuscular Volume 95 fL (79-100) 93 fL (79-100) Mean Corpuscular Hemoglobin 31 pg (25-35) 32 pg (25-35) Mean Corpuscular Hemoglobin Concent 33 g/dL (31-37) 35 g/dL (31-37) Red Cell Distribution Width 14.1 % (11.5-14.5) 13.9 % (11.5-14.5) Platelet Count 165 x10^3/uL (140-400) 110 x10^3/uL (140-400) Neutrophils (%) (Auto) 74 % (31-73) 62 % (31-73) Lymphocytes (%) (Auto) 13 % (24-48) 19 % (24-48) Monocytes (%) (Auto) 12 % (0-9) 13 % (0-9) Eosinophils (%) (Auto) 1 % (0-3) 5 % (0-3) Basophils (%) (Auto) 1 % (0-3) 0 % (0-3) Neutrophils # (Auto) 3.7 x10^3uL (1.8-7.7) 2.4 x10^3uL (1.8-7.7) Lymphocytes # (Auto) 0.6 x10^3/uL (1.0-4.8) 0.7 x10^3/uL (1.0-4.8) Monocytes # (Auto) 0.6 x10^3/uL (0.0-1.1) 0.5 x10^3/uL (0.0-1.1) Eosinophils # (Auto) 0.1 x10^3/uL (0.0-0.7) 0.2 x10^3/uL (0.0-0.7) Basophils # (Auto) 0.0 x10^3/uL (0.0-0.2) 0.0 x10^3/uL (0.0-0.2) Prothrombin Time 14.1 SEC (11.7-14.0) Prothromb Time International Ratio 1.2 (0.8-1.1) Activated Partial Thromboplast Time 44 SEC (24-38) Sodium Level 137 mmol/L (136-145) 137 mmol/L (136-145) Potassium Level 3.8 mmol/L (3.5-5.1) 3.3 mmol/L (3.5-5.1) Chloride Level 101 mmol/L (98-107) 103 mmol/L (98-107) Carbon Dioxide Level 29 mmol/L (21-32) 27 mmol/L (21-32) Anion Gap 7 (6-14) 7 (6-14) Blood Urea Nitrogen 20 mg/dL (8-26) 17 mg/dL (8-26) Creatinine 0.9 mg/dL (0.7-1.3) 0.9 mg/dL (0.7-1.3) Estimated GFR (Cockcroft-Gault) 96.4 96.4 Glucose Level 118 mg/dL (70-99) 98 mg/dL (70-99) Calcium Level 9.0 mg/dL (8.5-10.1) 8.3 mg/dL (8.5-10.1) Total Bilirubin 1.0 mg/dL (0.2-1.0) Direct Bilirubin 0.3 mg/dL (0.0-0.2) Aspartate Amino Transf (AST/SGOT) 21 U/L (15-37) Alanine Aminotransferase (ALT/SGPT) 22 U/L (16-63) Alkaline Phosphatase 57 U/L (46-116) Creatine Kinase 112 U/L (39-308) Creatine Kinase MB (Mass) < 0.5 ng/mL (0.0-3.6) Creatine Kinase MB Relative Index % (0-4) Troponin I Quantitative < 0.017 ng/mL (0.000-0.055) Total Protein 7.9 g/dL (6.4-8.2) Albumin 2.6 g/dL (3.4-5.0) Lipase 104 U/L (73-393) 25-Hydroxy Vitamin D Total 20.1 ng/mL (30.0-100.0) Urine Collection Type Unknown Urine Color Yellow Urine Clarity Clear Urine pH 5.5 Urine Specific [place] 1.025 Urine Protein Negative mg/dL (NEG-TRACE) Urine Glucose (UA) Negative mg/dL (NEG) Urine Ketones (Stick) Negative mg/dL (NEG) Urine Blood Small (NEG) Urine Nitrite Negative (NEG) Urine Bilirubin Negative (NEG) Urine Urobilinogen Dipstick 0.2 mg/dL (0.2 mg/dL) Urine Leukocyte Esterase Negative (NEG) Urine RBC 1-2 /HPF (0-2) Urine WBC 0 /HPF (0-4) Urine Squamous Epithelial Cells Few /LPF Urine Bacteria 0 /HPF (0-FEW) Urine Mucus Slight /LPF Nasal Screen MRSA (PCR) Negative (Negative) Test 08/02/16 03:01 Prothrombin Time 15.8 SEC (11.7-14.0) Prothromb Time International Ratio 1.3 (0.8-1.1) Laboratory Tests Test 08/02/16 03:01 Prothrombin Time 15.8 SEC (11.7-14.0) Prothromb Time International Ratio 1.3 (0.8-1.1) Notes Hb 8.9 A and A answers some questions LLE: dressing intact, small amount of bloody drainage wiggles toes Assessment and Plan he can WBAT, PT/OT as jessy will follow MAHAD Wesley II, MD August 02, 2016 11:53
--- NOTE | 2016-08-02 13:05 | PDOC ---
PROGRESS NOTES Chief Complaint Chief Complaint cc: fall A/P 1. Left hip fracture, 2. Fall at SNU 3. 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 HTN, controlled 6. fevers, Plan s/p hemiarthroplasty DVT prophylaxis pain control appears to be at his baseline IV Fluids Tylenol PRN IV Rocephin DC valverde if pt able to use urinal Vitals Vitals Vital Signs Date Time Temp Pulse Resp B/P (MAP) Pulse Ox O2 Delivery O2 Flow Rate FiO2 08/02/16 11:00 98.3 95 20 113/58 (76) 97 Room Air 98.3 08/01/16 11:21 2.0 Physical Exam General: Alert, Cooperative, No acute distress Heart: Normal S1, Normal S2 Lungs: Clear Abdomen: Normal bowel sounds, Soft, No tenderness, No hepatosplenomegaly, No masses Extremities: No clubbing, No cyanosis, No edema, Normal pulses, No tenderness/ swelling Skin: No rashes, No breakdown, No significant lesion Labs LABS Laboratory Tests Test 08/02/16 03:01 Prothrombin Time 15.8 SEC (11.7-14.0) Prothromb Time International Ratio 1.3 (0.8-1.1) Assessment and Plan Assessmemt and Plan Problems Medical Problems: (1) Hip fracture, left Status: Acute Problems: Comment Review of Relevant I have reviewed the following items edith (where applicable) has been applied. Labs Laboratory Tests Test 07/31/16 13:15 07/31/16 14:43 07/31/16 19:45 08/01/16 03:10 White Blood Count 5.0 x10^3/uL (4.0-11.0) 3.9 x10^3/uL (4.0-11.0) Red Blood Count 3.29 x10^6/uL (4.30-5.70) 2.78 x10^6/uL (4.30-5.70) Hemoglobin 10.3 g/dL (13.0-17.5) 8.9 g/dL (13.0-17.5) Hematocrit 31.2 % (39.0-53.0) 25.7 % (39.0-53.0) Mean Corpuscular Volume 95 fL (79-100) 93 fL (79-100) Mean Corpuscular Hemoglobin 31 pg (25-35) 32 pg (25-35) Mean Corpuscular Hemoglobin Concent 33 g/dL (31-37) 35 g/dL (31-37) Red Cell Distribution Width 14.1 % (11.5-14.5) 13.9 % (11.5-14.5) Platelet Count 165 x10^3/uL (140-400) 110 x10^3/uL (140-400) Neutrophils (%) (Auto) 74 % (31-73) 62 % (31-73) Lymphocytes (%) (Auto) 13 % (24-48) 19 % (24-48) Monocytes (%) (Auto) 12 % (0-9) 13 % (0-9) Eosinophils (%) (Auto) 1 % (0-3) 5 % (0-3) Basophils (%) (Auto) 1 % (0-3) 0 % (0-3) Neutrophils # (Auto) 3.7 x10^3uL (1.8-7.7) 2.4 x10^3uL (1.8-7.7) Lymphocytes # (Auto) 0.6 x10^3/uL (1.0-4.8) 0.7 x10^3/uL (1.0-4.8) Monocytes # (Auto) 0.6 x10^3/uL (0.0-1.1) 0.5 x10^3/uL (0.0-1.1) Eosinophils # (Auto) 0.1 x10^3/uL (0.0-0.7) 0.2 x10^3/uL (0.0-0.7) Basophils # (Auto) 0.0 x10^3/uL (0.0-0.2) 0.0 x10^3/uL (0.0-0.2) Prothrombin Time 14.1 SEC (11.7-14.0) Prothromb Time International Ratio 1.2 (0.8-1.1) Activated Partial Thromboplast Time 44 SEC (24-38) Sodium Level 137 mmol/L (136-145) 137 mmol/L (136-145) Potassium Level 3.8 mmol/L (3.5-5.1) 3.3 mmol/L (3.5-5.1) Chloride Level 101 mmol/L (98-107) 103 mmol/L (98-107) Carbon Dioxide Level 29 mmol/L (21-32) 27 mmol/L (21-32) Anion Gap 7 (6-14) 7 (6-14) Blood Urea Nitrogen 20 mg/dL (8-26) 17 mg/dL (8-26) Creatinine 0.9 mg/dL (0.7-1.3) 0.9 mg/dL (0.7-1.3) Estimated GFR (Cockcroft-Gault) 96.4 96.4 Glucose Level 118 mg/dL (70-99) 98 mg/dL (70-99) Calcium Level 9.0 mg/dL (8.5-10.1) 8.3 mg/dL (8.5-10.1) Total Bilirubin 1.0 mg/dL (0.2-1.0) Direct Bilirubin 0.3 mg/dL (0.0-0.2) Aspartate Amino Transf (AST/SGOT) 21 U/L (15-37) Alanine Aminotransferase (ALT/SGPT) 22 U/L (16-63) Alkaline Phosphatase 57 U/L (46-116) Creatine Kinase 112 U/L (39-308) Creatine Kinase MB (Mass) < 0.5 ng/mL (0.0-3.6) Creatine Kinase MB Relative Index % (0-4) Troponin I Quantitative < 0.017 ng/mL (0.000-0.055) Total Protein 7.9 g/dL (6.4-8.2) Albumin 2.6 g/dL (3.4-5.0) Lipase 104 U/L (73-393) 25-Hydroxy Vitamin D Total 20.1 ng/mL (30.0-100.0) Urine Collection Type Unknown Urine Color Yellow Urine Clarity Clear Urine pH 5.5 Urine Specific Archie 1.025 Urine Protein Negative mg/dL (NEG-TRACE) Urine Glucose (UA) Negative mg/dL (NEG) Urine Ketones (Stick) Negative mg/dL (NEG) Urine Blood Small (NEG) Urine Nitrite Negative (NEG) Urine Bilirubin Negative (NEG) Urine Urobilinogen Dipstick 0.2 mg/dL (0.2 mg/dL) Urine Leukocyte Esterase Negative (NEG) Urine RBC 1-2 /HPF (0-2) Urine WBC 0 /HPF (0-4) Urine Squamous Epithelial Cells Few /LPF Urine Bacteria 0 /HPF (0-FEW) Urine Mucus Slight /LPF Nasal Screen MRSA (PCR) Negative (Negative) Test 08/02/16 03:01 Prothrombin Time 15.8 SEC (11.7-14.0) Prothromb Time International Ratio 1.3 (0.8-1.1) Laboratory Tests Test 08/02/16 03:01 Prothrombin Time 15.8 SEC (11.7-14.0) Prothromb Time International Ratio 1.3 (0.8-1.1) Medications Current Medications Iohexol (Omnipaque 300 Mg/ml) 75 ml 1X ONCE IV Last administered on 07/31/16 14:07; Start 07/31/16 at 14:00; Stop 07/31/16 at 14:01; Status DC Info (Do NOT chart on this entry -- for MONITORING) 1 each PRN DAILY PRN MC SEE COMMENTS; Start 07/31/16 at 14:00; Stop 08/02/16 at 13:59 Ondansetron HCl (Zofran) 4 mg PRN Q8HRS PRN IV NAUSEA/VOMITING; Start 07/31/16 at 15:45; Stop 07/31/16 at 16:36; Status DC Fentanyl Citrate (Fentanyl 2ml Vial) 25 mcg PRN Q1HR PRN IV PAIN Last administered on 08/01/16 10:51; Start 07/31/16 at 15:45; Stop 08/01/16 at 15:44 ; Status DC Cefazolin Sodium 1 gm/Sodium Chloride 50 ml @ 100 mls/hr 1X ONCE IV ; Start at 06:00; Stop 08/01/16 at 06:00; Status DC Cefazolin Sodium 50 ml @ 100 mls/hr 1X PREOP PRN IV PRIOR TO PROCEDURE; Start 08/01/16 at 06:00; Stop 08/01/16 at 18:00; Status DC Ondansetron HCl (Zofran) 4 mg PRN Q6HRS PRN IV NAUSEA/VOMITING; Start 07/31/16 at 16:34; Stop 08/01/16 at 16:33; Status DC Donepezil HCl (Aricept) 10 mg DAILY PO Last administered on 08/02/16 09:20; Start 08/01/16 at 09:00 Losartan Potassium (Cozaar) 12.5 mg DAILY PO Last administered on 08/02/16 09: 21; Start 08/01/16 at 09:00 Tamsulosin HCl (Flomax) 0.4 mg DAILY PO Last administered on 08/02/16 09:20; Start 08/01/16 at 09:00 Latanoprost (Xalatan) 1 drop QHS OU Last administered on 08/01/16 20:49; Start 07/31/16 at 21:00 Dorzolamide HCl (Trusopt) 1 drop DAILY OU Last administered on 08/02/16 09:30 ; Start 08/01/16 at 09:00 Ondansetron HCl (Zofran) 4 mg PRN Q6HRS PRN IV NAUSEA/VOMITING; Start 08/01/16 at 07:00; Stop 08/02/16 at 06:59; Status DC Fentanyl Citrate (Fentanyl 2ml Vial) 25 mcg PRN Q5MIN PRN IV MILD PAIN Last administered on 08/01/16 11:18; Start 08/01/16 at 07:00; Stop 08/02/16 at 06:59 ; Status DC Fentanyl Citrate (Fentanyl 2ml Vial) 50 mcg PRN Q5MIN PRN IV MODERATE PAIN; Start 08/01/16 at 07:00; Stop 08/02/16 at 06:59; Status DC Morphine Sulfate 1 mg PRN Q10MIN PRN IV SEVERE PAIN; Start 08/01/16 at 07:00; Stop 08/02/16 at 06:59; Status DC Ringer's Solution 1,000 ml @ 0 mls/hr Q0M IV ; Start 08/01/16 at 07:00; Stop at 18:59; Status DC Lidocaine HCl 2 ml PRN 1X PRN ID PRIOR TO IV START; Start 08/01/16 at 07:00; Stop 08/02/16 at 06:59; Status DC Hydromorphone HCl (Dilaudid) 0.5 mg PRN Q10MIN PRN IV SEV PAIN, Second choice; Start 08/01/16 at 07:00; Stop 08/02/16 at 06:59; Status DC Prochlorperazine Edisylate (Compazine) 5 mg PACU PRN PRN IV NAUSEA, MRX1; Start 08/01/16 at 07:00; Stop 08/02/16 at 06:59; Status DC Morphine Sulfate 5 mg/Ketorolac Tromethamine 30 mg/Ropivacaine 60 ml/ Epinephrine HCl 0.5 mg/Sodium Chloride 100 ml @ 100 mls/hr 1X PERIOP ONCE INT ART Last administered on 08/01/16 09:12; Start 08/01/16 at 06:00; Stop at 07:00; Status DC Folic Acid (Folic Acid) 1 mg DAILY PO Last administered on 08/02/16 09:21; Start 08/01/16 at 09:00 Albuterol Sulfate (Ventolin Neb Soln) 2.5 mg PRN Q4HRS PRN NEB SHORTNESS OF BREATH; Start 08/01/16 at 03:45 Ferrous Sulfate (Feosol) 325 mg BIDWMEALS PO Last administered on 08/02/16 09: 20; Start 08/01/16 at 08:00 Memantine (Namenda) 5 mg DAILY PO Last administered on 08/02/16 09:21; Start 08/01/16 at 09:00 Phenylephrine HCl 1 mg STK-MED ONCE IV ; Start 08/01/16 at 08:22; Stop 08/01/16 at 08:23; Status DC Ephedrine Sulfate 50 mg STK-MED ONCE IV ; Start 08/01/16 at 08:22; Stop at 08:23; Status DC Ondansetron HCl (Zofran) 4 mg STK-MED ONCE .ROUTE ; Start 08/01/16 at 08:24; Stop 08/01/16 at 08:25; Status DC Propofol 20 ml @ As Directed STK-MED ONCE IV ; Start 08/01/16 at 08:24; Stop at 08:25; Status DC Lidocaine HCl (Lidocaine Pf 2% Vial) 5 ml STK-MED ONCE .ROUTE ; Start 08/01/16 at 08:25; Stop 08/01/16 at 08:26; Status DC Rocuronium Opp (Zemuron) 50 mg STK-MED ONCE .ROUTE ; Start 08/01/16 at 08:25 ; Stop 08/01/16 at 08:26; Status DC Fentanyl Citrate (Fentanyl 2ml Vial) 100 mcg STK-MED ONCE .ROUTE ; Start at 08:25; Stop 08/01/16 at 08:26; Status DC Neostigmine Methylsulfate (Bloxiverz) 10 mg STK-MED ONCE .ROUTE ; Start at 09:19; Stop 08/01/16 at 09:20; Status DC Glycopyrrolate (Robinul) 1 mg STK-MED ONCE .ROUTE ; Start 08/01/16 at 09:19; Stop 08/01/16 at 09:20; Status DC Neostigmine Methylsulfate 5 mg STK-MED ONCE .ROUTE ; Start 08/01/16 at 09:20; Stop 08/01/16 at 09:21; Status DC Sevoflurane (Ultane) 60 ml STK-MED ONCE IH ; Start 08/01/16 at 09:33; Stop 08/01 at 09:34; Status DC Phenylephrine HCl 1 mg STK-MED ONCE IV ; Start 08/01/16 at 10:08; Stop 08/01/16 at 10:09; Status DC Esmolol HCl (Brevibloc) 100 mg STK-MED ONCE IV ; Start 08/01/16 at 10:24; Stop 08/01/16 at 10:25; Status DC Warfarin Sodium (Coumadin Per Pharmacy) 1 each PRN DAILY PRN MC SEE COMMENTS Last administered on 08/02/16 11:43; Start 08/01/16 at 10:30 Warfarin Sodium (Coumadin) 5 mg 1X ONCE PO Last administered on 08/01/16 16: 51; Start 08/01/16 at 17:00; Stop 08/01/16 at 17:01; Status DC Cefazolin Sodium 1 gm/Sodium Chloride 50 ml @ 100 mls/hr Q6H IV Last administered on 08/02/16 03:00; Start 08/01/16 at 15:00; Stop 08/02/16 at 03:29 ; Status DC Potassium Chloride (Klor-Con) 40 meq 1X ONCE PO Last administered on 16:52; Start 08/01/16 at 13:00; Stop 08/01/16 at 13:05; Status DC Acetaminophen (Tylenol) 325 mg PRN Q6HRS PRN PO MILD PAIN / TEMP Last administered on 08/02/16 06:05; Start 08/01/16 at 23:00 Sodium Chloride 1,000 ml @ 75 mls/hr [id number] IV Last administered on 23:37; Start 08/01/16 at 23:30 Warfarin Sodium (Coumadin) 5 mg 1X WARF ONCE PO ; Start 08/02/16 at 16:00; Stop 08/02/16 at 16:01 Active Scripts Active Reported [dozolamide ] 2 Drop EACHEYE DAILY Travatan Z (Travoprost) 5 Ml Drops 1 Drop EACHEYE QHS Tamsulosin Hcl 0.4 Mg Cap.er.24h 1 Cap PO DAILY Donepezil Hcl 10 Mg Tablet 1 Tab PO DAILY Losartan Potassium 25 Mg Tablet 12.5 Mg PO DAILY Vitals/I & O Vital Sign - Last 24 Hours 08/01/16 08/01/16 08/01/16 08/01/16 13:31 14:31 15:32 16:28 Temp 97.7 98.1 98.1 97.7 98.1 98.1 Pulse 87 86 102 Resp 20 B/P (MAP) 116/52 (73) 120/60 (80) 100/51 (67) Pulse Ox 95 96 96 96 O2 Delivery Room Air Room Air Room Air Room Air 08/01/16 08/01/16 08/01/16 08/02/16 19:00 20:00 23:02 03:00 Temp 99.2 101.3 100.2 99.2 101.3 100.2 Pulse 103 110 108 Resp 18 18 18 B/P (MAP) 139/74 (95) 127/62 (83) 135/53 (80) Pulse Ox 94 93 94 O2 Delivery Room Air Room Air Room Air Room Air 08/02/16 08/02/16 08/02/16 08/02/16 07:00 08:00 09:21 11:00 Temp 99.7 98.3 99.7 98.3 Pulse 95 95 95 Resp 20 20 B/P (MAP) 120/66 (84) 120/66 113/58 (76) Pulse Ox 92 97 O2 Delivery Room Air Room Air Room Air Intake and Output 08/01/16 08/01/16 08/02/16 15:00 23:00 07:00 Intake Total 120 ml 130 ml Output Total 200 ml 150 ml Balance -200 ml -30 ml 130 ml MICHAEL YOUSSEF MD August 02, 2016 13:05
[2016-08-02 15:00] VITALS: BP 125/52
[2016-08-02] MEDS ORDERED: WARFARIN 5 MG TABLET. PO ONE (16:00)
[2016-08-02] MEDS: HYDROcodone/APAP 5/325MG 1 TAB TABLET PO PRN (17:42)
[2016-08-02 19:00] VITALS: BP 119/50
[2016-08-02] MEDS: LATANOPROST 0.005% OPHTH SOLUTION 2.5ML BOTTLE. OU SCH (21:00)
[2016-08-02] MEDS: IV NORMAL SALINE 1000ML BAG 1,000 ML IV SCH (22:27)
[2016-08-02 23:00] VITALS: BP 115/52
[2016-08-03 03:00] VITALS: BP 144/68
[2016-08-03] MEDS: ACETAMINOPHEN 325 MG TABLET. PO PRN (03:15)
[2016-08-03] MEDS: HYDROcodone/APAP 5/325MG 1 TAB TABLET PO PRN ×2 (03:16→10:44)
[2016-08-03 05:09] LABS: INR 1.4 (0.8-1.1); PROTHROMBIN TIME PATIENT 16.2 SEC (11.7-14.0)
[2016-08-03 07:00] VITALS: BP 120/57
[2016-08-03] MEDS: FOLIC ACID 1 MG TABLET. PO SCH (07:57)
[2016-08-03] MEDS: DONEPEZIL HCL 10 MG TABLET. PO SCH (07:57)
[2016-08-03] MEDS: TAMSULOSIN 0.4 MG CAP.ER.24H. PO SCH (07:57)
[2016-08-03] MEDS: FERROUS SULFATE 325 MG TABLET. PO SCH ×2 (07:57→16:05)
[2016-08-03] MEDS: MEMANTINE 5 MG TABLET. PO SCH (07:57)
[2016-08-03] MEDS: LOSARTAN POTASSIUM 25 MG TABLET. PO SCH (08:05)
[2016-08-03] MEDS: DORZOLAMIDE 2% OPHTH SOLUTION 10ML BOTTLE. OU SCH (08:12)
--- NOTE | 2016-08-03 09:06 | PDOC ---
ORTHO PROGRESS NOTES Subjective No acute events Vitals Vital Signs Date Time Temp Pulse Resp B/P (MAP) Pulse Ox O2 Delivery O2 Flow Rate FiO2 08/03/16 08:05 91 120/57 08/03/16 07:00 98.1 20 96 Room Air 98.1 Labs Laboratory Tests Test 08/02/16 03:01 08/03/16 04:30 Prothrombin Time 15.8 SEC (11.7-14.0) 16.2 SEC (11.7-14.0) Prothromb Time International Ratio 1.3 (0.8-1.1) 1.4 (0.8-1.1) Laboratory Tests Test 08/03/16 04:30 Prothrombin Time 16.2 SEC (11.7-14.0) Prothromb Time International Ratio 1.4 (0.8-1.1) Notes resting RLE: NV status unchanged incision ok Assessment and Plan Aquacel over incision prior to D/C ok to D/C from my standpoint MAHAD GEORGES II, MD August 03, 2016 09:06
--- NOTE | 2016-08-03 10:11 | PDOC ---
PROGRESS NOTES Chief Complaint Chief Complaint cc: fall A/P 1. Left hip fracture, 2. Fall at SNU 3. 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 HTN, controlled 6. Fevers, unclear etiology Plan s/p hemiarthroplasty DVT prophylaxis pain control appears to be at his baseline IV Fluids Tylenol PRN IV Rocephin DC valverde UA not ready for DC due to fevers, CXR now r/o pneumonia. Vitals Vitals Vital Signs Date Time Temp Pulse Resp B/P (MAP) Pulse Ox O2 Delivery O2 Flow Rate FiO2 08/03/16 08:05 91 120/57 08/03/16 07:00 98.1 20 96 Room Air 98.1 Physical Exam General: Alert, Cooperative, No acute distress Heart: Normal S1, Normal S2 Lungs: Clear Abdomen: Normal bowel sounds, Soft, No tenderness, No hepatosplenomegaly, No masses Extremities: No clubbing, No cyanosis, No edema, Normal pulses, No tenderness/ swelling Skin: No rashes, No breakdown, No significant lesion Labs LABS Laboratory Tests Test 08/03/16 04:30 Prothrombin Time 16.2 SEC (11.7-14.0) Prothromb Time International Ratio 1.4 (0.8-1.1) Assessment and Plan Assessmemt and Plan Problems Medical Problems: (1) Hip fracture, left Status: Acute Problems: Comment Review of Relevant I have reviewed the following items edith (where applicable) has been applied. Labs Laboratory Tests Test 08/02/16 03:01 08/03/16 04:30 Prothrombin Time 15.8 SEC (11.7-14.0) 16.2 SEC (11.7-14.0) Prothromb Time International Ratio 1.3 (0.8-1.1) 1.4 (0.8-1.1) Laboratory Tests Test 08/03/16 04:30 Prothrombin Time 16.2 SEC (11.7-14.0) Prothromb Time International Ratio 1.4 (0.8-1.1) Microbiology 08/02/16 Blood Culture - Preliminary, Resulted NO GROWTH AFTER 1 DAY Medications Current Medications Iohexol (Omnipaque 300 Mg/ml) 75 ml 1X ONCE IV Last administered on 07/31/16t 14:07; Start 07/31/16 at 14:00; Stop 07/31/16 at 14:01; Status DC Info (Do NOT chart on this entry -- for MONITORING) 1 each PRN DAILY PRN MC SEE COMMENTS; Start 07/31/16 at 14:00; Stop 08/02/16 at 13:59; Status DC Ondansetron HCl (Zofran) 4 mg PRN Q8HRS PRN IV NAUSEA/VOMITING; Start 07/31/16 at 15:45; Stop 07/31/16 at 16:36; Status DC Fentanyl Citrate (Fentanyl 2ml Vial) 25 mcg PRN Q1HR PRN IV PAIN Last administered on 08/01/16 10:51; Start 07/31/16 at 15:45; Stop 08/01/16 at 15:44 ; Status DC Cefazolin Sodium 1 gm/Sodium Chloride 50 ml @ 100 mls/hr 1X ONCE IV ; Start at 06:00; Stop 08/01/16 at 06:00; Status DC Cefazolin Sodium 50 ml @ 100 mls/hr 1X PREOP PRN IV PRIOR TO PROCEDURE; Start 08/01/16 at 06:00; Stop 08/01/16 at 18:00; Status DC Ondansetron HCl (Zofran) 4 mg PRN Q6HRS PRN IV NAUSEA/VOMITING; Start 07/31/16 at 16:34; Stop 08/01/16 at 16:33; Status DC Donepezil HCl (Aricept) 10 mg DAILY PO Last administered on 08/03/16 07:57; Start 08/01/16 at 09:00 Losartan Potassium (Cozaar) 12.5 mg DAILY PO Last administered on 08/03/16 08: 05; Start 08/01/16 at 09:00 Tamsulosin HCl (Flomax) 0.4 mg DAILY PO Last administered on 08/03/16 07:57; Start 08/01/16 at 09:00 Latanoprost (Xalatan) 1 drop QHS OU Last administered on 08/02/16 21:00; Start 07/31/16 at 21:00 Dorzolamide HCl (Trusopt) 1 drop DAILY OU Last administered on 08/02/16 09:30 ; Start 08/01/16 at 09:00 Ondansetron HCl (Zofran) 4 mg PRN Q6HRS PRN IV NAUSEA/VOMITING; Start 08/01/16 at 07:00; Stop 08/02/16 at 06:59; Status DC Fentanyl Citrate (Fentanyl 2ml Vial) 25 mcg PRN Q5MIN PRN IV MILD PAIN Last administered on 08/01/16 11:18; Start 08/01/16 at 07:00; Stop 08/02/16 at 06:59 ; Status DC Fentanyl Citrate (Fentanyl 2ml Vial) 50 mcg PRN Q5MIN PRN IV MODERATE PAIN; Start 08/01/16 at 07:00; Stop 08/02/16 at 06:59; Status DC Morphine Sulfate 1 mg PRN Q10MIN PRN IV SEVERE PAIN; Start 08/01/16 at 07:00; Stop 08/02/16 at 06:59; Status DC Ringer's Solution 1,000 ml @ 0 mls/hr Q0M IV ; Start 08/01/16 at 07:00; Stop at 18:59; Status DC Lidocaine HCl 2 ml PRN 1X PRN ID PRIOR TO IV START; Start 08/01/16 at 07:00; Stop 08/02/16 at 06:59; Status DC Hydromorphone HCl (Dilaudid) 0.5 mg PRN Q10MIN PRN IV SEV PAIN, Second choice; Start 08/01/16 at 07:00; Stop 08/02/16 at 06:59; Status DC Prochlorperazine Edisylate (Compazine) 5 mg PACU PRN PRN IV NAUSEA, MRX1; Start 08/01/16 at 07:00; Stop 08/02/16 at 06:59; Status DC Morphine Sulfate 5 mg/Ketorolac Tromethamine 30 mg/Ropivacaine 60 ml/ Epinephrine HCl 0.5 mg/Sodium Chloride 100 ml @ 100 mls/hr 1X PERIOP ONCE INT ART Last administered on 08/01/16 09:12; Start 08/01/16 at 06:00; Stop at 07:00; Status DC Folic Acid (Folic Acid) 1 mg DAILY PO Last administered on 08/03/16 07:57; Start 08/01/16 at 09:00 Albuterol Sulfate (Ventolin Neb Soln) 2.5 mg PRN Q4HRS PRN NEB SHORTNESS OF BREATH; Start 08/01/16 at 03:45 Ferrous Sulfate (Feosol) 325 mg BIDWMEALS PO Last administered on 08/03/16 07: 57; Start 08/01/16 at 08:00 Memantine (Namenda) 5 mg DAILY PO Last administered on 08/03/16t 07:57; Start 08/01/16 at 09:00 Phenylephrine HCl 1 mg STK-MED ONCE IV ; Start 08/01/16 at 08:22; Stop 08/01/16 at 08:23; Status DC Ephedrine Sulfate 50 mg STK-MED ONCE IV ; Start 08/01/16 at 08:22; Stop at 08:23; Status DC Ondansetron HCl (Zofran) 4 mg STK-MED ONCE .ROUTE ; Start 08/01/16 at 08:24; Stop 08/01/16 at 08:25; Status DC Propofol 20 ml @ As Directed STK-MED ONCE IV ; Start 08/01/16 at 08:24; Stop at 08:25; Status DC Lidocaine HCl (Lidocaine Pf 2% Vial) 5 ml STK-MED ONCE .ROUTE ; Start 08/01/16 at 08:25; Stop 08/01/16 at 08:26; Status DC Rocuronium [place] (Zemuron) 50 mg STK-MED ONCE .ROUTE ; Start 08/01/16 at 08:25 ; Stop 08/01/16 at 08:26; Status DC Fentanyl Citrate (Fentanyl 2ml Vial) 100 mcg STK-MED ONCE .ROUTE ; Start at 08:25; Stop 08/01/16 at 08:26; Status DC Neostigmine Methylsulfate (Bloxiverz) 10 mg STK-MED ONCE .ROUTE ; Start at 09:19; Stop 08/01/16 at 09:20; Status DC Glycopyrrolate (Robinul) 1 mg STK-MED ONCE .ROUTE ; Start 08/01/16 at 09:19; Stop 08/01/16 at 09:20; Status DC Neostigmine Methylsulfate 5 mg STK-MED ONCE .ROUTE ; Start 08/01/16 at 09:20; Stop 08/01/16 at 09:21; Status DC Sevoflurane (Ultane) 60 ml STK-MED ONCE IH ; Start 08/01/16 at 09:33; Stop 08/01 at 09:34; Status DC Phenylephrine HCl 1 mg STK-MED ONCE IV ; Start 08/01/16 at 10:08; Stop 08/01/16 at 10:09; Status DC Esmolol HCl (Brevibloc) 100 mg STK-MED ONCE IV ; Start 08/01/16 at 10:24; Stop 08/01/16 at 10:25; Status DC Warfarin Sodium (Coumadin Per Pharmacy) 1 each PRN DAILY PRN MC SEE COMMENTS Last administered on 08/02/16 11:43; Start 08/01/16 at 10:30 Warfarin Sodium (Coumadin) 5 mg 1X ONCE PO Last administered on 08/01/16 16: 51; Start 08/01/16 at 17:00; Stop 08/01/16 at 17:01; Status DC Cefazolin Sodium 1 gm/Sodium Chloride 50 ml @ 100 mls/hr Q6H IV Last administered on 08/02/16 03:00; Start 08/01/16 at 15:00; Stop 08/02/16 at 03:29 ; Status DC Potassium Chloride (Klor-Con) 40 meq 1X ONCE PO Last administered on 16:52; Start 08/01/16 at 13:00; Stop 08/01/16 at 13:05; Status DC Acetaminophen (Tylenol) 325 mg PRN Q6HRS PRN PO MILD PAIN / TEMP Last administered on 08/03/16 03:15; Start 08/01/16 at 23:00 Sodium Chloride 1,000 ml @ 75 mls/hr [id number] IV Last administered on 22:27; Start 08/01/16 at 23:30 Warfarin Sodium (Coumadin) 5 mg 1X WARF ONCE PO Last administered on 16:42; Start 08/02/16 at 16:00; Stop 08/02/16 at 16:01; Status DC Ceftriaxone Sodium 1 gm/ Sodium Chloride 50 ml @ 100 mls/hr Q24H IV Last administered on 08/02/16 20:40; Start 08/02/16 at 21:00 Acetaminophen/ Hydrocodone Bitart (Lortab 5/325) 1 tab PRN Q6HRS PRN PO PAIN Last administered on 08/03/16t 03:16; Start 08/02/16 at 17:00 Cefazolin Sodium (Ancef 1gm Ivpb For Omni) 1 gm STK-MED ONCE IV ; Start at 08:46; Stop 08/03/16 at 07:55; Status DC Active Scripts Active Reported [dozolamide ] 2 Drop EACHEYE DAILY Travatan Z (Travoprost) 5 Ml Drops 1 Drop EACHEYE QHS Tamsulosin Hcl 0.4 Mg Cap.er.24h 1 Cap PO DAILY Donepezil Hcl 10 Mg Tablet 1 Tab PO DAILY Losartan Potassium 25 Mg Tablet 12.5 Mg PO DAILY Vitals/I & O Vital Sign - Last 24 Hours 08/02/16 08/02/16 08/02/16 08/02/16 11:00 15:00 19:00 20:00 Temp 98.3 98.8 100.0 98.3 98.8 100.0 Pulse 95 92 103 Resp 20 20 18 B/P (MAP) 113/58 (76) 125/52 (76) 119/50 (73) Pulse Ox 97 96 95 O2 Delivery Room Air Room Air Room Air Room Air 08/02/16 08/03/16 08/03/16 08/03/16 23:00 03:00 03:16 04:16 Temp 99.7 97.7 99.7 97.7 Pulse 73 77 Resp 18 20 16 16 B/P (MAP) 115/52 (73) 144/68 (93) Pulse Ox 95 100 O2 Delivery Room Air Room Air Room Air Room Air 08/03/16 08/03/16 07:00 08:05 Temp 98.1 98.1 Pulse 91 91 Resp 20 B/P (MAP) 120/57 (78) 120/57 Pulse Ox 96 O2 Delivery Room Air Intake and Output 08/02/16 08/02/16 08/03/16 15:00 23:00 07:00 Intake Total 100 ml Output Total 600 ml 375 ml Balance -600 ml -275 ml MICHAEL YOUSSEF MD August 03, 2016 10:11
[2016-08-03 10:27] LABS: CALCIUM 7.7 mg/dL (8.5-10.1); CREATININE 0.9 mg/dL (0.7-1.3); GFR 96.4; POTASSIUM 3.7 mmol/L (3.5-5.1)
[2016-08-03 10:56] LABS: BASO % 0 % (0-3); EOS % 8 % (0-3); HEMATOCRIT 21.5 % (39.0-53.0); HEMOGLOBIN 7.3 g/dL (13.0-17.5); LYMPH # 0.5 x10^3/uL (1.0-4.8); LYMPH % 11 % (24-48); MEAN CORPUSCULAR HEMOGLOBIN 32 pg (25-35); MEAN CORPUSCULAR HGB CONC 34 g/dL (31-37); MEAN CORPUSCULAR VOLUME 93 fL (79-100); MONO % 13 % (0-9); NEUT % 68 % (31-73); PLATELET COUNT 97 x10^3/uL (140-400); RED BLOOD COUNT 2.32 x10^6/uL (4.30-5.70); RED CELL DISTRIBUTION WIDTH 14.1 % (11.5-14.5)
[2016-08-03 11:00] VITALS: BP 120/63
[2016-08-03] MEDS: IV NORMAL SALINE 1000ML BAG 1,000 ML IV SCH (11:16)
[2016-08-03 12:02] LABS: BILIRUBIN,URINE NEGATIVE (NEG); GLUCOSE,URINE NEGATIVE (NEG); NITRITE,URINE NEGATIVE (NEG); PH,URINE 5.5; PROTEIN,URINE NEGATIVE (NEG-TRACE)
[2016-08-03 12:15] LABS: BACTERIA,URINE 0 /HPF (0-FEW); SQUAMOUS EPITHELIAL CELL,UR FEW /LPF; WBC,URINE 0 /HPF (0-4)
--- NOTE | 2016-08-03 14:28 | RAD ---
Portable chest, 08/03/2016: History: Fever Comparison is made to a study from 07/12/2016. The heart size and pulmonary vascularity are normal. There is calcific plaquing of the aorta. No pulmonary infiltrates are seen. There is no evidence of pleural fluid. IMPRESSION: No acute cardiopulmonary abnormality is detected.
[2016-08-03 15:00] VITALS: BP 127/65
[2016-08-03] MEDS ORDERED: WARFARIN 5 MG TABLET. PO ONE (16:00)
[2016-08-03 19:00] VITALS: BP 134/54
[2016-08-03] MEDS: LATANOPROST 0.005% OPHTH SOLUTION 2.5ML BOTTLE. OU SCH (20:59)
[2016-08-03 23:05] VITALS: BP 138/60
[2016-08-04] MEDS: IV NORMAL SALINE 1000ML BAG 1,000 ML IV SCH (01:16)
[2016-08-04 03:00] VITALS: BP 128/50
[2016-08-04 04:57] LABS: INR 1.5 (0.8-1.1); PROTHROMBIN TIME PATIENT 17.5 SEC (11.7-14.0)
[2016-08-04 07:00] VITALS: BP 137/65
[2016-08-04] MEDS: DONEPEZIL HCL 10 MG TABLET. PO SCH (07:49)
[2016-08-04] MEDS: MEMANTINE 5 MG TABLET. PO SCH (07:49)
[2016-08-04] MEDS: FOLIC ACID 1 MG TABLET. PO SCH (07:49)
[2016-08-04] MEDS: FERROUS SULFATE 325 MG TABLET. PO SCH (07:49)
[2016-08-04] MEDS: TAMSULOSIN 0.4 MG CAP.ER.24H. PO SCH (07:49)
[2016-08-04] MEDS: LOSARTAN POTASSIUM 25 MG TABLET. PO SCH (07:54)
[2016-08-04] MEDS: DORZOLAMIDE 2% OPHTH SOLUTION 10ML BOTTLE. OU SCH (07:54)
--- NOTE | 2016-08-04 08:41 | PDOC ---
ORTHO PROGRESS NOTES Subjective No acute events. Doesnt verbalize any complaints Vitals Vital Signs Date Time Temp Pulse Resp B/P (MAP) Pulse Ox O2 Delivery O2 Flow Rate FiO2 08/04/16 07:54 87 137/65 08/04/16 07:40 97 Room Air 08/04/16 07:00 99.2 18 99.2 Labs Laboratory Tests Test 08/03/16 04:30 08/03/16 11:30 08/04/16 04:00 White Blood Count 5.0 x10^3/uL (4.0-11.0) Red Blood Count 2.32 x10^6/uL (4.30-5.70) Hemoglobin 7.3 g/dL (13.0-17.5) Hematocrit 21.5 % (39.0-53.0) Mean Corpuscular Volume 93 fL (79-100) Mean Corpuscular Hemoglobin 32 pg (25-35) Mean Corpuscular Hemoglobin Concent 34 g/dL (31-37) Red Cell Distribution Width 14.1 % (11.5-14.5) Platelet Count 97 x10^3/uL (140-400) Neutrophils (%) (Auto) 68 % (31-73) Lymphocytes (%) (Auto) 11 % (24-48) Monocytes (%) (Auto) 13 % (0-9) Eosinophils (%) (Auto) 8 % (0-3) Basophils (%) (Auto) 0 % (0-3) Neutrophils # (Auto) 3.4 x10^3uL (1.8-7.7) Lymphocytes # (Auto) 0.5 x10^3/uL (1.0-4.8) Monocytes # (Auto) 0.6 x10^3/uL (0.0-1.1) Eosinophils # (Auto) 0.4 x10^3/uL (0.0-0.7) Basophils # (Auto) 0.0 x10^3/uL (0.0-0.2) Prothrombin Time 16.2 SEC (11.7-14.0) 17.5 SEC (11.7-14.0) Prothromb Time International Ratio 1.4 (0.8-1.1) 1.5 (0.8-1.1) Sodium Level 141 mmol/L (136-145) Potassium Level 3.7 mmol/L (3.5-5.1) Chloride Level 108 mmol/L (98-107) Carbon Dioxide Level 26 mmol/L (21-32) Anion Gap 7 (6-14) Blood Urea Nitrogen 17 mg/dL (8-26) Creatinine 0.9 mg/dL (0.7-1.3) Estimated GFR (Cockcroft-Gault) 96.4 Glucose Level 105 mg/dL (70-99) Calcium Level 7.7 mg/dL (8.5-10.1) Urine Collection Type Unknown Urine Color Yellow Urine Clarity Clear Urine pH 5.5 Urine Specific [place] 1.025 Urine Protein Negative mg/dL (NEG-TRACE) Urine Glucose (UA) Negative mg/dL (NEG) Urine Ketones (Stick) Negative mg/dL (NEG) Urine Blood Small (NEG) Urine Nitrite Negative (NEG) Urine Bilirubin Negative (NEG) Urine Urobilinogen Dipstick 1.0 mg/dL (0.2 mg/dL) Urine Leukocyte Esterase Negative (NEG) Urine RBC 3-5 /HPF (0-2) Urine WBC 0 /HPF (0-4) Urine Squamous Epithelial Cells Few /LPF Urine Bacteria 0 /HPF (0-FEW) Urine Mucus Mod /LPF Laboratory Tests Test 08/03/16 11:30 08/04/16 04:00 Urine Collection Type Unknown Urine Color Yellow Urine Clarity Clear Urine pH 5.5 Urine Specific [place] 1.025 Urine Protein Negative mg/dL (NEG-TRACE) Urine Glucose (UA) Negative mg/dL (NEG) Urine Ketones (Stick) Negative mg/dL (NEG) Urine Blood Small (NEG) Urine Nitrite Negative (NEG) Urine Bilirubin Negative (NEG) Urine Urobilinogen Dipstick 1.0 mg/dL (0.2 mg/dL) Urine Leukocyte Esterase Negative (NEG) Urine RBC 3-5 /HPF (0-2) Urine WBC 0 /HPF (0-4) Urine Squamous Epithelial Cells Few /LPF Urine Bacteria 0 /HPF (0-FEW) Urine Mucus Mod /LPF Prothrombin Time 17.5 SEC (11.7-14.0) Prothromb Time International Ratio 1.5 (0.8-1.1) Notes In bed, awake, follows some commands Incision ok wiggles toes on L, toes warm Assessment and Plan Aquacel over incision ok to D/C from my standpoint MAHAD GEORGES II, MD August 04, 2016 08:41
--- NOTE | 2016-08-04 09:49 | PDOC ---
PROGRESS NOTES Chief Complaint Chief Complaint cc: fall A/P 1. Left hip fracture, 2. Fall at [facility]U 3. 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 HTN, controlled 6. Fevers, unclear etiology, resolving, 7. BPH with Urinary retention Plan s/p hemiarthroplasty DVT prophylaxis with warfarin pain control appears to be at his baseline IV Fluids Tylenol PRN IV Rocephin Due to his BPH, not able to DC Garcia, had hx of urinary retention UA clean DC today If no fevers by 330 PM CXR no pneumonia History of Present Illness History of Present Illness no fevers > 100 no rash no obvious infection seen clinically looks good. Vitals Vitals Vital Signs Date Time Temp Pulse Resp B/P (MAP) Pulse Ox O2 Delivery O2 Flow Rate FiO2 08/04/16 08:00 Room Air 08/04/16 07:54 87 137/65 08/04/16 07:40 97 08/04/16 07:00 99.2 18 99.2 Physical Exam General: Alert, Cooperative, No acute distress Heart: Normal S1, Normal S2 Lungs: Clear Abdomen: Normal bowel sounds, Soft, No tenderness, No hepatosplenomegaly, No masses Extremities: No clubbing, No cyanosis, No edema, Normal pulses, No tenderness/ swelling Skin: No rashes, No breakdown, No significant lesion Labs LABS Laboratory Tests Test 08/03/16 11:30 08/04/16 04:00 Urine Collection Type Unknown Urine Color Yellow Urine Clarity Clear Urine pH 5.5 Urine Specific [place] 1.025 Urine Protein Negative mg/dL (NEG-TRACE) Urine Glucose (UA) Negative mg/dL (NEG) Urine Ketones (Stick) Negative mg/dL (NEG) Urine Blood Small (NEG) Urine Nitrite Negative (NEG) Urine Bilirubin Negative (NEG) Urine Urobilinogen Dipstick 1.0 mg/dL (0.2 mg/dL) Urine Leukocyte Esterase Negative (NEG) Urine RBC 3-5 /HPF (0-2) Urine WBC 0 /HPF (0-4) Urine Squamous Epithelial Cells Few /LPF Urine Bacteria 0 /HPF (0-FEW) Urine Mucus Mod /LPF Prothrombin Time 17.5 SEC (11.7-14.0) Prothromb Time International Ratio 1.5 (0.8-1.1) Assessment and Plan Assessmemt and Plan Problems Medical Problems: (1) Hip fracture, left Status: Acute Problems: Comment Review of Relevant I have reviewed the following items edith (where applicable) has been applied. Labs Laboratory Tests Test 08/03/16 04:30 08/03/16 11:30 08/04/16 04:00 White Blood Count 5.0 x10^3/uL (4.0-11.0) Red Blood Count 2.32 x10^6/uL (4.30-5.70) Hemoglobin 7.3 g/dL (13.0-17.5) Hematocrit 21.5 % (39.0-53.0) Mean Corpuscular Volume 93 fL (79-100) Mean Corpuscular Hemoglobin 32 pg (25-35) Mean Corpuscular Hemoglobin Concent 34 g/dL (31-37) Red Cell Distribution Width 14.1 % (11.5-14.5) Platelet Count 97 x10^3/uL (140-400) Neutrophils (%) (Auto) 68 % (31-73) Lymphocytes (%) (Auto) 11 % (24-48) Monocytes (%) (Auto) 13 % (0-9) Eosinophils (%) (Auto) 8 % (0-3) Basophils (%) (Auto) 0 % (0-3) Neutrophils # (Auto) 3.4 x10^3uL (1.8-7.7) Lymphocytes # (Auto) 0.5 x10^3/uL (1.0-4.8) Monocytes # (Auto) 0.6 x10^3/uL (0.0-1.1) Eosinophils # (Auto) 0.4 x10^3/uL (0.0-0.7) Basophils # (Auto) 0.0 x10^3/uL (0.0-0.2) Prothrombin Time 16.2 SEC (11.7-14.0) 17.5 SEC (11.7-14.0) Prothromb Time International Ratio 1.4 (0.8-1.1) 1.5 (0.8-1.1) Sodium Level 141 mmol/L (136-145) Potassium Level 3.7 mmol/L (3.5-5.1) Chloride Level 108 mmol/L (98-107) Carbon Dioxide Level 26 mmol/L (21-32) Anion Gap 7 (6-14) Blood Urea Nitrogen 17 mg/dL (8-26) Creatinine 0.9 mg/dL (0.7-1.3) Estimated GFR (Cockcroft-Gault) 96.4 Glucose Level 105 mg/dL (70-99) Calcium Level 7.7 mg/dL (8.5-10.1) Urine Collection Type Unknown Urine Color Yellow Urine Clarity Clear Urine pH 5.5 Urine Specific [place] 1.025 Urine Protein Negative mg/dL (NEG-TRACE) Urine Glucose (UA) Negative mg/dL (NEG) Urine Ketones (Stick) Negative mg/dL (NEG) Urine Blood Small (NEG) Urine Nitrite Negative (NEG) Urine Bilirubin Negative (NEG) Urine Urobilinogen Dipstick 1.0 mg/dL (0.2 mg/dL) Urine Leukocyte Esterase Negative (NEG) Urine RBC 3-5 /HPF (0-2) Urine WBC 0 /HPF (0-4) Urine Squamous Epithelial Cells Few /LPF Urine Bacteria 0 /HPF (0-FEW) Urine Mucus Mod /LPF Laboratory Tests Test 08/03/16 11:30 08/04/16 04:00 Urine Collection Type Unknown Urine Color Yellow Urine Clarity Clear Urine pH 5.5 Urine Specific [place] 1.025 Urine Protein Negative mg/dL (NEG-TRACE) Urine Glucose (UA) Negative mg/dL (NEG) Urine Ketones (Stick) Negative mg/dL (NEG) Urine Blood Small (NEG) Urine Nitrite Negative (NEG) Urine Bilirubin Negative (NEG) Urine Urobilinogen Dipstick 1.0 mg/dL (0.2 mg/dL) Urine Leukocyte Esterase Negative (NEG) Urine RBC 3-5 /HPF (0-2) Urine WBC 0 /HPF (0-4) Urine Squamous Epithelial Cells Few /LPF Urine Bacteria 0 /HPF (0-FEW) Urine Mucus Mod /LPF Prothrombin Time 17.5 SEC (11.7-14.0) Prothromb Time International Ratio 1.5 (0.8-1.1) Microbiology 08/02/16 Blood Culture - Preliminary, Resulted NO GROWTH AFTER 2 DAYS Medications Current Medications Iohexol (Omnipaque 300 Mg/ml) 75 ml 1X ONCE IV Last administered on 07/31/16t 14:07; Start 07/31/16 at 14:00; Stop 07/31/16 at 14:01; Status DC Info (Do NOT chart on this entry -- for MONITORING) 1 each PRN DAILY PRN MC SEE COMMENTS; Start 07/31/16 at 14:00; Stop 08/02/16 at 13:59; Status DC Ondansetron HCl (Zofran) 4 mg PRN Q8HRS PRN IV NAUSEA/VOMITING; Start 07/31/16 at 15:45; Stop 07/31/16 at 16:36; Status DC Fentanyl Citrate (Fentanyl 2ml Vial) 25 mcg PRN Q1HR PRN IV PAIN Last administered on 08/01/16 10:51; Start 07/31/16 at 15:45; Stop 08/01/16 at 15:44 ; Status DC Cefazolin Sodium 1 gm/Sodium Chloride 50 ml @ 100 mls/hr 1X ONCE IV ; Start at 06:00; Stop 08/01/16 at 06:00; Status DC Cefazolin Sodium 50 ml @ 100 mls/hr 1X PREOP PRN IV PRIOR TO PROCEDURE; Start 08/01/16 at 06:00; Stop 08/01/16 at 18:00; Status DC Ondansetron HCl (Zofran) 4 mg PRN Q6HRS PRN IV NAUSEA/VOMITING; Start 07/31/16 at 16:34; Stop 08/01/16 at 16:33; Status DC Donepezil HCl (Aricept) 10 mg DAILY PO Last administered on 08/04/16 07:49; Start 08/01/16 at 09:00 Losartan Potassium (Cozaar) 12.5 mg DAILY PO Last administered on 08/04/16 07: 54; Start 08/01/16 at 09:00 Tamsulosin HCl (Flomax) 0.4 mg DAILY PO Last administered on 08/04/16 07:49; Start 08/01/16 at 09:00 Latanoprost (Xalatan) 1 drop QHS OU Last administered on 08/03/16 20:59; Start 07/31/16 at 21:00 Dorzolamide HCl (Trusopt) 1 drop DAILY OU Last administered on 08/04/16 07:54 ; Start 08/01/16 at 09:00 Ondansetron HCl (Zofran) 4 mg PRN Q6HRS PRN IV NAUSEA/VOMITING; Start 08/01/16 at 07:00; Stop 08/02/16 at 06:59; Status DC Fentanyl Citrate (Fentanyl 2ml Vial) 25 mcg PRN Q5MIN PRN IV MILD PAIN Last administered on 08/01/16 11:18; Start 08/01/16 at 07:00; Stop 08/02/16 at 06:59 ; Status DC Fentanyl Citrate (Fentanyl 2ml Vial) 50 mcg PRN Q5MIN PRN IV MODERATE PAIN; Start 08/01/16 at 07:00; Stop 08/02/16 at 06:59; Status DC Morphine Sulfate 1 mg PRN Q10MIN PRN IV SEVERE PAIN; Start 08/01/16 at 07:00; Stop 08/02/16 at 06:59; Status DC Ringer's Solution 1,000 ml @ 0 mls/hr Q0M IV ; Start 08/01/16 at 07:00; Stop at 18:59; Status DC Lidocaine HCl 2 ml PRN 1X PRN ID PRIOR TO IV START; Start 08/01/16 at 07:00; Stop 08/02/16 at 06:59; Status DC Hydromorphone HCl (Dilaudid) 0.5 mg PRN Q10MIN PRN IV SEV PAIN, Second choice; Start 08/01/16 at 07:00; Stop 08/02/16 at 06:59; Status DC Prochlorperazine Edisylate (Compazine) 5 mg PACU PRN PRN IV NAUSEA, MRX1; Start 08/01/16 at 07:00; Stop 08/02/16 at 06:59; Status DC Morphine Sulfate 5 mg/Ketorolac Tromethamine 30 mg/Ropivacaine 60 ml/ Epinephrine HCl 0.5 mg/Sodium Chloride 100 ml @ 100 mls/hr 1X PERIOP ONCE INT ART Last administered on 08/01/16 09:12; Start 08/01/16 at 06:00; Stop at 07:00; Status DC Folic Acid (Folic Acid) 1 mg DAILY PO Last administered on 08/04/16 07:49; Start 08/01/16 at 09:00 Albuterol Sulfate (Ventolin Neb Soln) 2.5 mg PRN Q4HRS PRN NEB SHORTNESS OF BREATH; Start 08/01/16 at 03:45 Ferrous Sulfate (Feosol) 325 mg BIDWMEALS PO Last administered on 08/04/16 07: 49; Start 08/01/16 at 08:00 Memantine (Namenda) 5 mg DAILY PO Last administered on 08/04/16t 07:49; Start 08/01/16 at 09:00 Phenylephrine HCl 1 mg STK-MED ONCE IV ; Start 08/01/16 at 08:22; Stop 08/01/16 at 08:23; Status DC Ephedrine Sulfate 50 mg STK-MED ONCE IV ; Start 08/01/16 at 08:22; Stop at 08:23; Status DC Ondansetron HCl (Zofran) 4 mg STK-MED ONCE .ROUTE ; Start 08/01/16 at 08:24; Stop 08/01/16 at 08:25; Status DC Propofol 20 ml @ As Directed STK-MED ONCE IV ; Start 08/01/16 at 08:24; Stop at 08:25; Status DC Lidocaine HCl (Lidocaine Pf 2% Vial) 5 ml STK-MED ONCE .ROUTE ; Start 08/01/16 at 08:25; Stop 08/01/16 at 08:26; Status DC Rocuronium [place] (Zemuron) 50 mg STK-MED ONCE .ROUTE ; Start 08/01/16 at 08:25 ; Stop 08/01/16 at 08:26; Status DC Fentanyl Citrate (Fentanyl 2ml Vial) 100 mcg STK-MED ONCE .ROUTE ; Start at 08:25; Stop 08/01/16 at 08:26; Status DC Neostigmine Methylsulfate (Bloxiverz) 10 mg STK-MED ONCE .ROUTE ; Start at 09:19; Stop 08/01/16 at 09:20; Status DC Glycopyrrolate (Robinul) 1 mg STK-MED ONCE .ROUTE ; Start 08/01/16 at 09:19; Stop 08/01/16 at 09:20; Status DC Neostigmine Methylsulfate 5 mg STK-MED ONCE .ROUTE ; Start 08/01/16 at 09:20; Stop 08/01/16 at 09:21; Status DC Sevoflurane (Ultane) 60 ml STK-MED ONCE IH ; Start 08/01/16 at 09:33; Stop 08/01 at 09:34; Status DC Phenylephrine HCl 1 mg STK-MED ONCE IV ; Start 08/01/16 at 10:08; Stop 08/01/16 at 10:09; Status DC Esmolol HCl (Brevibloc) 100 mg STK-MED ONCE IV ; Start 08/01/16 at 10:24; Stop 08/01/16 at 10:25; Status DC Warfarin Sodium (Coumadin Per Pharmacy) 1 each PRN DAILY PRN MC SEE COMMENTS Last administered on 08/03/16 11:06; Start 08/01/16 at 10:30 Warfarin Sodium (Coumadin) 5 mg 1X ONCE PO Last administered on 08/01/16 16: 51; Start 08/01/16 at 17:00; Stop 08/01/16 at 17:01; Status DC Cefazolin Sodium 1 gm/Sodium Chloride 50 ml @ 100 mls/hr Q6H IV Last administered on 08/02/16 03:00; Start 08/01/16 at 15:00; Stop 08/02/16 at 03:29 ; Status DC Potassium Chloride (Klor-Con) 40 meq 1X ONCE PO Last administered on 16:52; Start 08/01/16 at 13:00; Stop 08/01/16 at 13:05; Status DC Acetaminophen (Tylenol) 325 mg PRN Q6HRS PRN PO MILD PAIN / TEMP Last administered on 08/03/16 03:15; Start 08/01/16 at 23:00 Sodium Chloride 1,000 ml @ 75 mls/hr [id number] IV Last administered on 01:16; Start 08/01/16 at 23:30 Warfarin Sodium (Coumadin) 5 mg 1X WARF ONCE PO Last administered on 16:42; Start 08/02/16 at 16:00; Stop 08/02/16 at 16:01; Status DC Ceftriaxone Sodium 1 gm/ Sodium Chloride 50 ml @ 100 mls/hr Q24H IV Last administered on 08/03/16 20:59; Start 08/02/16 at 21:00 Acetaminophen/ Hydrocodone Bitart (Lortab 5/325) 1 tab PRN Q6HRS PRN PO PAIN Last administered on 5/22/17at 10:44; Start 08/02/16 at 17:00 Cefazolin Sodium (Ancef 1gm Ivpb For Omni) 1 gm STK-MED ONCE IV ; Start at 08:46; Stop 08/03/16 at 07:55; Status DC Warfarin Sodium (Coumadin) 5 mg 1X WARF ONCE PO Last administered on 16:07; Start 08/03/16 at 16:00; Stop 08/03/16 at 16:01; Status DC Active Scripts Active Reported [dozolamide ] 2 Drop EACHEYE DAILY Travatan Z (Travoprost) 5 Ml Drops 1 Drop EACHEYE QHS Tamsulosin Hcl 0.4 Mg Cap.er.24h 1 Cap PO DAILY Donepezil Hcl 10 Mg Tablet 1 Tab PO DAILY Losartan Potassium 25 Mg Tablet 12.5 Mg PO DAILY Vitals/I & O Vital Sign - Last 24 Hours 08/03/16 08/03/16 08/03/16 08/03/16 11:00 15:00 19:00 20:00 Temp 99.2 97.9 98.5 99.2 97.9 98.5 Pulse 89 85 67 Resp 18 18 18 B/P (MAP) 120/63 (82) 127/65 (85) 134/54 (80) Pulse Ox 97 99 96 O2 Delivery Room Air Room Air Room Air Room Air 08/03/16 08/04/16 08/04/16 08/04/16 23:05 03:00 07:00 07:40 Temp 99.8 99.1 99.2 99.8 99.1 99.2 Pulse 90 45 87 Resp 20 18 18 B/P (MAP) 138/60 (86) 128/50 (76) 137/65 (89) Pulse Ox 90 93 95 97 O2 Delivery Room Air Room Air Room Air Room Air 08/04/16 08/04/16 07:54 08:00 Pulse 87 B/P (MAP) 137/65 O2 Delivery Room Air Intake and Output 08/03/16 08/03/16 08/04/16 15:00 23:00 07:00 Intake Total 120 ml 667 ml Output Total 650 ml Balance 120 ml 17 ml Nutrition Consultation Dietary Evaluation: Recommendations by RD: Increase Calorie Intake, Protein supplementation Comments: boost plus supplementation: 360 kcal, 14 g protein/serving Expected Outcomes/Goals: to meet > 75% est nutr needs Malnutrition Findings: Body Fat Depletion (Non Severe: Mild Depletion Weight Status: Appropriate MICHAEL YOUSSEF MD August 04, 2016 09:49
[2016-08-04] MEDS: HYDROcodone/APAP 5/325MG 1 TAB TABLET PO PRN (09:59)
[2016-08-04 11:00] VITALS: BP 136/61
[2016-08-04 15:00] VITALS: BP 125/66
[2016-08-04] MEDS ORDERED: MAGNESIUM HYDROXIDE 2,400 MG/30 ML ORAL.SUSP. PO ONE (16:00)
[2016-08-04] MEDS ORDERED: WARFARIN 3 MG TABLET. PO ONE (16:00)
--- NOTE | 2016-08-04 20:13 | DS ---
DATE OF DISCHARGE: 08/04/2016 DISCHARGE DIAGNOSES: 1. Left hip fracture status post hemiarthroplasty by Dr. Avendaño, currently recovering from surgery. 2. Fall at the [facility]. 3. History of dementia, at baseline status. 4. Hypertension. 5. Fevers, unclear etiology. Chest x-ray, blood cultures, urinalysis, and CBC negative so far. 6. Benign prostatic hypertrophy with urinary retention, currently requiring Garcia catheter. BRIEF HOSPITAL COURSE: An 89-year-old male patient admitted to the hospital for left hip fracture. The patient had a fall at a [facility] 2 days prior to his admission and he was evaluated by Dr. Avendaño on 08/01/2016, the patient has a left hip hemiarthroplasty postsurgery, he was recovering well and working with physical therapy and currently is on warfarin for DVT prophylaxis. However, for last 2 days, the patient developed fevers with temperatures more than 100, but last 24 hours, his temperatures were less than 100. Workup such as chest x-ray, urinalysis, and CBC did not show any signs of infection and also clinically patient looks at his baseline status, which could be contributed due to his Garcia catheter; however, I could not be able to remove it due to his urinary retention. The patient has been asked to keep Garcia catheter for 2 weeks and follow up with Dr. Diaz in 2 weeks and make voiding trial. His blood cultures, so far no growth. He deemed clinically stable enough to go to [facility] facility and follow up with subspecialist as recommended. DISCHARGE EXAMINATION: Please see my progress note. DISCHARGE CONDITION: Stable. MEDICATIONS: Reviewed and reconciled. Please see MRAD. DIET: Cardiac diet. Total time spent for discharge is 31 minutes for patient's education, counseling, and coordination of care. MICHAEL YOUSSEF MD DR: STEPHENIE/benny JOB#: [id number] / [id number] MARYAN
--- NOTE | 2016-08-05 14:24 | PATHOLOGY ---
PATHOLOGY REPORT * * * * * * * * FINAL DIAGNOSIS: Femoral head, left hip hemiarthroplasty: - Focal fragmentation of bony trabeculae and recent intertrabecular hemorrhage consistent with fracture. COMMENT: There is no evidence of malignancy. (JPM:jeff; d/t: 08/05/2016) REPORT ELECTRONICALLY SIGNED BY: Kameron Selby M.D. DATE/TIME: 08/05/2016 14:22 * * * * * * * * GROSS PATHOLOGY: Received in formalin labeled "Dagoberto Garcia, left femoral head and tissue," is a femoral head measuring 5.4 x 5.3 x 4.7 cm in greatest dimensions. The articular surface is pale mejia to light brown and slightly granular. Sectioning reveals a light mejia to pink-mejia marrow space, with the distal most aspect hemorrhagic in appearance, consistent with a fracture site. [employer] Body Rep[employer] Technician tissue from the fracture site is submitted in cassette A1, following decalcification. (KAH:jeff; 08/04/2016) INITIAL CPT CODE(S): A; 76895, 74850 Professional services performed [place] [facility] [address] Technical services performed by [facility] at [address] [place] [address] [address] [address]. SPECIMEN(S) RECEIVED: A.Left femoral head and tissues CLINICAL HISTORY: Left hip fracture PATIENT: DAGOBERTO GARCIA /AGE: 10 1925 (Age: 89) PATIENT #: [id number] ALT CASE #: SPECIMEN COLLECTION DATE: 08/01/2016 SPECIMEN RECEIVED DATE: 08/03/2016 [facility] - [address] [place] [address] - PHONE: [phone] * * * END OF REPORT * * *
== END 2016-08-04 17:16 | disposition home or self-care (01) | DRG 469 ==
LOC: ER 13:03 → OBSVTOIN 15:00 → 4 NORTH 15:00
PROVIDERS: ADMIT Internal Medicine; ATTEND Internal Medicine
PROC: 0SRS0J9 Replacement of Left Hip Joint, Femoral Surface with Synthetic Substitute, Cemented, Open Approach (ICD-10-PCS; principal; 2016-08-01 08:00)
DX: S72.012A Unspecified intracapsular fracture of left femur, initial encounter for closed fracture (principal); G93.40 Encephalopathy, unspecified; I10 Essential (primary) hypertension; G30.9 Alzheimer's disease, unspecified; N40.1 Benign prostatic hyperplasia with lower urinary tract symptoms; I25.10 Atherosclerotic heart disease of native coronary artery without angina pectoris; N39.498 Other specified urinary incontinence; R33.8 Other retention of urine; F02.80 Dementia in other diseases classified elsewhere, unspecified severity, without behavioral disturbance, psychotic disturbance, mood disturbance, and anxiety; E86.0 Dehydration; E87.6 Hypokalemia; R50.9 Fever, unspecified; W18.39XA Other fall on same level, initial encounter; Y93.89 Activity, other specified; Y92.128 Other place in nursing home as the place of occurrence of the external cause; Z98.49 Cataract extraction status, unspecified eye; Y99.8 Other external cause status; Z90.89 Acquired absence of other organs
CPT/HCPCS: 36415; 71010; 73521; 74177; 80048; 80076; 81001; 82306; 82553; 83690; 84484; 85027; 85610; 85730; 87040; 87641; 93005; 94250; 94760; A4314; J0171; J0690; J0696; J1885; J2270; J2370; J2405; J2704; J2710; J2795; J3010; J3490; J7030; Q9967; 97110; 97116; 97530; 97535

== ENCOUNTER 2016-08-24 10:42 | Emergency (ER) | payer MEDICARE ==
[~2016-08-24] VITALS: Ht 182.9 cm; Wt 64.4 kg
[2016-08-24 10:52] VITALS: BP 178/78
--- NOTE | 2016-08-24 10:53 | PHYS DOC ---
Past Medical History Past Medical History: Hypertension, Renal Failure, Other Additional Past Medical Histor: cataract, BPH, ENCEPHALOPATHY, ALZHEIMER'S Past Surgical History: Other Additional Past Surgical Histo: cataract removal, prostate surgery -- UNKNOWN Alcohol Use: None Drug Use: None Adult General HPI HPI Patient is a 89 year old male presenting to the emergency department for evaluation of urinary retention. He has no other new neurologic changes or complaints. Reportedly there may be some prostate difficulty and the [facility] the prison cannot get a Garcia passive the doctor sent him here for Garcia placement. We were able to place a Garcia here with minimal difficulty. EMS state here for the patient and is going to take him back so we can indicated to the prison that they need to check a urine sample on him and prescribe antibiotics as needed. Patient discharged in stable condition. Review of Systems Review of Systems Constitutional: Denies fever or chills [] Respiratory: Denies cough or shortness of breath [] Cardiovascular: No additional information not addressed in HPI [] GI: Denies abdominal pain, nausea, vomiting, bloody stools or diarrhea [] : + dysuria. No hematuria [] Allergies Allergies Allergies Coded Allergies Type Severity Reaction Last Updated Verified No Known Drug Allergies 07/18/13 No Physical Exam Physical Exam Constitutional: Well developed, well nourished, no acute distress, non-toxic appearance. [] Cardiovascular:Heart rate regular rhythm, no murmur [] Lungs & Thorax: Bilateral breath sounds clear to auscultation [] Abdomen: Bowel sounds normal, soft, no tenderness, no masses, no pulsatile masses. [] EKG EKG [] Radiology/Procedures Radiology/Procedures [] Course & Med Decision Making Course & Med Decision Making Garcia placed and patient stable for discharge and can follow with PCP as outpatient. Dragon Disclaimer Dragon Disclaimer This electronic medical record was generated, in whole or in part, using a voice recognition dictation system. Departure Departure Impression: Primary Impression: Urinary retention Disposition: 01 HOME, SELF-CARE Condition: GOOD Referrals: GLADYS BURK MD (PCP) Patient Instructions: Urinary Retention, Acute, Male Additional Instructions: PLEASE HAVE UA CHECKED AT LONGTERM AND TREAT NEEDED. MARCY GARNER DO Aug 24, 2016 10:53
== END 2016-08-24 11:02 | disposition home or self-care (01) ==
LOC: ER 10:42
DX: R33.8 Other retention of urine (principal); I12.9 Hypertensive chronic kidney disease with stage 1 through stage 4 chronic kidney disease, or unspecified chronic kidney disease; N18.9 Chronic kidney disease, unspecified; G30.9 Alzheimer's disease, unspecified; F02.80 Dementia in other diseases classified elsewhere, unspecified severity, without behavioral disturbance, psychotic disturbance, mood disturbance, and anxiety; N40.1 Benign prostatic hyperplasia with lower urinary tract symptoms
CPT/HCPCS: 51702; 99284-25